=== PATIENT | female | born 1975 | race Caucasian/White ===

== ENCOUNTER 2023-06-13 07:59 | Outpatient (CLI) | payer OTHER, SELFPAY ==
--- NOTE | 2023-06-13 08:15 | ECG_ITS ---
Measurements Intervals [place] Rate: 58 P: 35 ME: 149 QRS: 3 QRSD: 86 T: 37 QT: 398 QTc: 393 Interpretive Statements SINUS BRADYCARDIA BASELINE ARTIFACT- I, II, AVR, AVL, AVF BORDERLINE ECG NO PREVIOUS ECG AVAILABLE FOR COMPARISON Electronically Signed On 06-13-2023 8:32:19 LICENSED MENTAL HE[employer] PROFESSIONAL by Warren Patiño D.O.
== END 2023-06-13 08:00 | disposition home or self-care (01) ==
LOC: ANHSURGERY 08:06
PROVIDERS: PCP Family Medicine; Visit Provider Surgery Plastic and Reconstructive Surgery
DX: E78.00 Pure hypercholesterolemia, unspecified (principal); Z01.818 Encounter for other preprocedural examination; R94.31 Abnormal electrocardiogram [ECG] [EKG]
CPT/HCPCS: 93005

== ENCOUNTER 2023-06-16 02:01 | Day surgery (SDC) | payer OTHER, SELFPAY ==
--- NOTE | 2023-06-06 10:16 | PC.NURSE ---
Report to the Outpatient Waiting Room, entrance under the green pavilion located off [facility], at time 0600 on date 06/16/23. Planned Procedure Time: 0730. Time changes happen often and if your time is changed the preop area will call you the afternoon before. - You and your visitor will be asked to self-screen and do not enter if you have any COVID symptoms. - A mask is optional within the hospital at this time. Patients may have clear liquids (water, carbonated beverages, clear teas, apple juice) until 3 hours prior to surgery with a maximum of 20 ounces. 0430 - No food from midnight until time of surgery - Infants may have breast milk until 4 hours before surgery, formula 6 hours prior to surgery. - Children will be allowed to drink immediately following surgery. If applicable, please bring a bottle or sippy cup to assist with drinking. Juice, water, soda, and popsicles are readily available. For infants on formula, please bring formula the day of surgery. Pacifiers are allowed. Take the following medications with a SIP of water the morning of surgery: None DO NOT STOP ANY OF YOUR OTHER PRESCRIPTION MEDICATIONS PRIOR TO SURGERY ?EXCEPT THE FOLLOWING Medications to discontinue per physician Multivitamins, Crestor, Progesterone Date to take last dose 06/13/23- Multivitamins, 06/15/23- Crestor, Progesterone Please no make-up, nail portuguese, hairspray, perfume, deodorant, or body powder the day of surgery. No jewelry (including any body piercings) or valuables the day of surgery, leave them at home. Please take a shower or bath the night before, or the morning of, surgery with an antibacterial soap. Wear comfortable, loose fitting clothing. Children are encouraged to wear pajamas. - Jewelry must be removed prior to entering the operating room. Rings and piercings that are not removed may be cut off. - The hospital will not accept responsibility for valuables. - Please leave all valuables, including medications, at home the day of surgery. If you are going home after surgery, a licensed medical driver must drive you home. - NO public transportation without another adult if you receive anesthesia. - We recommend that an adult stay with you for 24 hours following discharge. - We also recommend that you do not drive, make important decision, drink alcoholic beverages, or take any drugs that were not prescribed by your health care provider for at least 24 hours after your discharge time. For Pediatric surgeries, we recommend two adults accompany the child home. Follow any additional instructions given to you from your surgeon. If you or anyone in your household have experienced Covid symptoms in the past week, please notify your surgeon or the nurse liaison at the phone number below for possible testing. Telephone instructions given to Patient- Karrie Rea and asked if any additional questions and then verbalized understanding. Patient advised to call surgeon office or pre surgery nurse liaison [phone] if any additional questions.
[2023-06-06 10:24] VITALS: BMI 28.1
[2023-06-16] VITALS (12 sets, daily range): BP systolic 90–128; BP diastolic 56–88; PULSE 52–109; RESP 12–18; TEMP 36.6–37.1; O2SAT 93–100
[2023-06-16] MEDS: LACTATED RINGERS 1,000 ML 30 ML IV CONT ×2 (06:40→10:51)
[2023-06-16 06:58] LABS: Urine Cotinine NEGATIVE
--- NOTE | 2023-06-16 06:59 | WPDHPUPDATE1 ---
History and Physical Update Update Date/Time: 06/16/23 06:59 History and Physical has been reviewed, including an updated exam of the patient. There are NO changes in the patient's condition. Risks, benefits, and alternatives have been discussed and questions answered. Patient agrees to proceed with procedure.
--- NOTE | 2023-06-16 07:08 | WPDANESEPPF ---
Anes - Initial Pre Proc Eval Procedure: Operation Date: 06/16/23 07:30 Proposed Procedures p Bilateral Breast Mastopexy with Galaflex - Devonte Onofre MD Date/Time: 06/16/23 07:08 Surgeon: Devonte Onofre MD Pre Op Diagnosis: Jd Breast Ptosis Patient Data Age: 47 Gender: F Height: 1.73 m Weight: 83.9 kg Allergies Allergy/AdvReac Type Severity Reaction Status Date / Time Penicillins Allergy Rash Verified 06/06/23 10:03 Home Medications Medication Instructions Recorded Confirmed Type Adult Multivitamin Gummies 2 gummy PO DAILY 06/06/23 06/06/23 History progesterone micronized 200 mg 200 mg PO HS 06/06/23 06/06/23 History capsule rosuvastatin 40 mg tablet 40 mg PO DAILY 06/06/23 06/06/23 History Laboratory Tests 06/16/23 06:34 Cotinine Negative Patient hx anesthesia problems: none Family hx anesthesia problems: none Results Review: All pre-operative results and documents have been reviewed as part of the pre-operative evaluation. [facility], [facility] Social History Social History Smoking status: Never smoker Alcohol use details: 4 times per year Spiritual care concerns: No Anes - Eval Final PreProcedure Day of Procedure 06/16/23 07:08 Patient weight: overweight Heart: regular rate and rhythm Lungs: clear to auscultation Airway: Mallampati scale class III Neurological: alert and oriented Last oral intake: >/= 8 hours ASA classification: III Emergent: no Anesthetic plan: proceed Anesthesia type and monitoring: general LMA and standard monitoring Results Review: All pre-operative results and documents have been reviewed as part of the pre-operative evaluation. Informed Consent: The patient's anesthetic plan and its attendant risks and benefits were discussed with the patient/family/POA. Questions were solicited and answers provided to the satisfaction of the patient/family/POA.
[2023-06-16] MEDS: ceFAZolin 2 GM/D5W 50 ML 2 GM/50 ML BAG IVPB (07:27)
[2023-06-16] MEDS: TRANEXAMIC ACID 1,000MG/ISO100 1,000 MG/100 ML BAG 200 MG IVPB (07:37)
[2023-06-16] MEDS: NACL 0.9% IRRIG POUR BOTTLE 900 ML, GENTAMICIN SULFATE INJ 160 MG, CLINDAMYCIN PHOS INJ... IRRIGATION (07:50)
[2023-06-16] MEDS: LACTATED RINGERS IRRIG 1,000 ML, LIDOCAINE HCL 1% LOCAL INJ 50 ML, EPINEPHrine HCL INJ ... INFILTRATE (10:05)
--- NOTE | 2023-06-16 10:48 | P.OP_ITS ---
Procedure Note - Detailed Date of Procedure 06/16/23 Pre-op Diagnosis Jd Breast Ptosis Post-op Diagnosis Same Procedure Performed Bilateral mastopexy with Galaflex Surgeon Devonte Onofre MD Anesthesia General Findings Inverted T Superior medial pedicle Autoaugmentation Tissue removed: Right - 159.6 grams lateral to breast Left - 262 grams lateral to breast Lipoaspirate 125cc Galaflex REF# [id number]# [id number] Description of Procedure She is here today for bilateral breast mastopexy. Previously and again today the risks, benefits, alternatives were discussed in extensive detail. I wanted her to be very realistic about the risks involved as well as expectations. She has had previous biopsy of the skin of her breast and has elected to send this tissue to pathology (she understands this is in addition to our fee). We discussed aftercare and what to monitor for. Made sure answered all of her questions to her satisfaction today and consent was obtained. Marked in the preoperative holding area with their verification. The patient was taken to the operating room placed supine on the operating table. Anesthesia was provided by anesthesiology. A surgical time-out was taken. She was prepped and draped in a standard sterile fashion. Eleven blade was utilized to make a stab incision and infiltrated with low volume tumescent solution. The breast was tailor tacked into place. I tailor tacked the breast into position. Placed her in a sitting position. Verified the nipple-areolar location based on preoperative planning as well as intraoperative observations and measurements in full agreement. She was placed supine. I de-epithelialized the pedicle. I then de-epithelialized the inferior breast tissue to create an autoaugmentation flap based on intercostal assistant superintendent. I elevated medial and lateral tissue flaps as well for planned closure. The autoaugmentation flap was sutured to the chest wall with 2-0 PDS. Blaze had been soaking on the back table in a Betadine solution. This was trimmed and sutured into place with 2-0 Vicryl. She was tacked into place and placed in a sitting position to verify symmetry. Laterally she had asymmetry and suction lipectomy was completed with a 4mm basket cannula based on S.A.F.E. technique to maximize results. 2-0 PDS was used to tack the breast to deep tissue. I closed along the IMF with 2-0 Stratafix. Along the vertical with 2-0 PDS. I closed around the areola with 3-0 strata fix. 3-0 Monocryl along the vertical. 3-0 Stratafix along the IMF. I finally closed everything with running subcuticular 4-0 Monocryl and tissue glue. Fluffs and surgical bra were placed. Estimated Blood Loss 125 Drains No Packing No Pathology Yes (Breast skin) Complications No immediate complications Condition Stable Disposition PACU
[2023-06-16] MEDS: ONDANSETRON INJ 4 MG/2 ML VIAL IV PUSH (11:31)
[2023-06-16] MEDS: HYDROmorphone HCL INJ (*CRX) 1 MG/ML SYR 0.5 MG IV PUSH ×2 (11:34→12:15)
[2023-06-16] MEDS: diphenhydrAMINE HCl INJ 50 MG/ML VIAL 25 MG IV PUSH (13:36)
[2023-06-16] MEDS: SCOPOLAMINE 1.5 MG PATCH TRANSDERM (13:36)
[2023-06-16] MEDS: oxyCODONE HCL (*CRX) 5 MG TAB IR PO (14:02)
== END 2023-06-16 14:30 | disposition home or self-care (01) ==
PROVIDERS: PCP Family Medicine; Visit Provider Surgery Plastic and Reconstructive Surgery
PROC: (CPT 19316; principal; 2023-06-16 07:30)
DX: Z41.1 Encounter for cosmetic surgery (principal); N64.81 Ptosis of breast
CPT/HCPCS: 19316; 15777 ×2; 80307; 88305; A9270; J0171; J0690; J1170; J1200; J1580; J2250; J2270; J2405; J2704; J7120

== ENCOUNTER 2024-11-27 12:40 | Outpatient (CLI) | payer OTHER, SELFPAY ==
--- OUTSIDE RECORDS SUMMARY | 2024-11-27 12:48 | XMS_ITS | Continuity of Care Document ---
Author Name [facility] Organization [facility] Care Team Providers Care Manager Video Name Role Phone [facility] Unavailable Unavailable Problems Combined list of problems from Department of Defense and Veterans Affairs facilities. It does not include entries that were removed or entered in error. Problem Status Onset Date Problem Type Date of Resolution Comments Source Nodules - Subcutaneous Active Condition Informed consen t obtained. Area prepped and draped. Infiltrated with 1% lidocaine. Incision made over area, and nodule excised. Wound closed with 5-0 proline. DoD Test Negative Inactive Condition DoD Aftercare Following Surgery Of Musculoskeletal System Inactive Condition DoD KNEE SPRAIN Active Condition With mos t likely acl tear based on exam and possible posterior horn tear of medial meniscus.Pt has ortho appointment at 1000 today. DoD VULVOVAGINITIS BIANKA ALBICANS Active Condition DoD joint pain, localized in the knee Active Condition DoD Other Physical Therapy Active Condition DoD INTERNAL DERANGEMENT OF KNEE MEDIAL MENISCUS Active Condition DoD visit for: issue repeat prescription Active Condition DoD LUMBAGO Active Condition DoD Overweight Active Condition DoD HYPERLIPIDEMIA Active Condition Total cholesterol still above idea.Discussed further options with pt and she wants to wait and discuss with PCM she finds after moving to [facility]. [facility] HYPOMENORRHEA Active Condition DoD visit for: administrative purpose Active Condition DoD Test Inactive Condition DoD BACTERIAL VAGINOSIS Inactive Condition Strong fishy odor - will treat for BV - wet prep taken - sent to lab.Pt thinks she may be - will treat with vaginal gel - Cleocin.HCG - neg DoD BURSITIS Active Condition Ibuprofen 800 mg TID. Heat to shoulder. Limited lifting . ROM exeercises. Follow up for worsening DoD URINARY TRACT INFECTION Inactive Condition increase fluids DoD MYALGIA AND MYOSITIS Active Condition DoD BACK STRAIN THORACIC Active Condition Stretching exercises. Heat . Flexeril TID as needed. Return for worsening or non resolution. DoD SUNBURN Inactive Condition DoD CERVICALGIA Active Condition DoD MIGRAINE HEADACHE Active Condition Co ntinue Ibuprofen as directed; DoD NECK STRAIN Inactive Condition DoD UNSPECIFIED MUSCLE STRAIN Inactive Condition trapezius and paraspinal muscles, hold of on exercises for 1 week alternate ice with heat, RTC for f/u if not improving DoD Patient Education - Dietary Active Condition DoD visit for: issue repeat prescription for medication Inactive Condition Last annual pap--Mar 22, result normal DoD CYSTITIS ACUTE Inactive Condition Resol vedContinue oral force hydratition DoD lower back pain Active Condition DoD skin: a rash [as Sx] Inactive Condition DoD ASTIGMATISM - REGULAR Active Condition DoD REFRACTIVE ERROR - MYOPIA Active Condition DoD NORMAL ROUTINE OPHTHALMOLOGICAL EXAM Inactive Condition DoD LUNG MASS Active Condition possibilit y of mass noted on previous X-ray for pneumonia, would like CT scan to assure nature and presence of mass DoD UPPER RESPIRATORY INFECTION ACUTE Inactive Condition CXR: shows L UL pneumonia according to USAFA, Prescribed antibiotic treatment for atypical pneumonia DoD Medications Combined list of outpatient medications from Department of Defense and Veterans Affairs facilities.Medications provided include 1) outpatient medications from the last 15 months, and 2) patient-reported medications. Medication Details Route Status Patient Instructions Prescription Expires Prescription Number Last Dispense Date Ordering Provider Order Date Order Qty Source CHLORTHALID ONE (chlorthali done), 25 MG, TABLET, ORAL, AMNEAL PHARMACE, 90 ea. BOTTLE Cancele d [id number] : 2023 0 Pharmac y Data Transac tion Service Facilit y METHYLPREDN ISOLONE (methylpred nisolone), 4 MG, TAB DS PK, ORAL, ZYDUS PHARMACEU, 21 ea. DOSE-PACK Active [id number] 2023 21 Pharmac y Data Transac tion Service Facilit y ONDANSETRON HCL (ONDANSETRO N HCL), 4MG, TABLET, ORAL, GLENMARK PHARMA, 30 ea. BOTTLE Active [id number] 2023 12 Pharmac y Data Transac tion Service Facilit y Allergies, Adverse Reactions, Alerts Combined list of allergies from Department of Defense and Veterans Affairs facilities. It does not include entries that were removed or entered in error. Substance Category Reaction Severity Reaction type Status Date Reported Comments Source OTHER Drug allergy (disorder) Unknown active 06/01/2007 [facility] Penicillins Drug allergy (disorder) Unknown active 08/21/2006 47 [facility] Immunizations Combined list of available immunizations from the Department of Defense and Veterans Affairs facilities. Immunization Series Date Given Administered By Site Reaction Lot Number CVX Code Drug Cook Ship Status Comments Source influenza, injectable, quadrivalent, preservative free 2019 ROB, () Not Given influenza , injectabl e, quadrival ent, preservat hernan free [facility] Influenza, seasonal, injectable, preservative free 2014 CYNTHIA GRIFFITH () Not Given Influenza , seasonal, injectabl e, preservat hernan free DoD Encounters Combined list of: 1) Encounters from Department of Veterans Affairs facilities going backup to the last 18 months, not all VA inpatient encounters are included; 2) Encounters from the Department of Defense facilities going backup to 280 months. Location Location Details Encounter Type Encounter Number Reason For Visit Attending Provider ADM Date DC Date Status Disposition Source [facility] OUTPATIENT [id number] cold sx GENIA ROMERO 06/30 Released w/o Limitations [facility](F light Medic[facility]) [facility](Fli [facility]ht Medicine [facility]) OUTPATIENT [id number] GENIA ROMERO 07/20 Released w/o Limitations [facility] light [facility]) [facility](Opt ometry Clinic) OUTPATIENT [id number] scl VI Manuel I 07/25 Released w/o Limitations [facility](O ptometr y Clinic) [facility](Gai [facility]ht Medicine [facility]) OUTPATIENT [id number] rash on rt arm EDVIN MATA 08/21 Released w/o Limitations [facility]) [facility] OUTPATIENT [id number] pelvic pain and hematur ia RAPHAEL GARCIA 11/13 Released w/o Limitations [facility] OR [facility]) OUTPATIENT [id number] follow up RAPHAEL GARCIA 11/21 Released w/o Limitations [facility]) OUTPATIENT [id number] Nutriti on Della g RONNELL Crook 11/23 Released w/o Limitations [facility]) OUTPATIENT [id number] sever back pain YVONNE FLORES 11/25 Released w/o Limitations [facility] OR [facility]) OUTPATIENT [id number] neck discomf ort/hea dache x 1wk ILSA GRIMALDO 01/24 Released w/o Limitations [facility] OR Mannie Ferguson [place]([facility]) OUTPATIENT [id number] neck discomf ort no trauma /injury needs manip PAPITO LUCAS 01/29 Released w/o Limitations [facility]) OUTPATIENT [id number] severe neck pain,ok per PAPITO Hummel 02/02 Released w/o Limitations [facility] OR [facility]) OUTPATIENT [id number] NECK ISSUES/ F/U PAPITO LUCAS 02/23 Released w/o Limitations [facility] OR [facility]) OUTPATIENT [id number] UTI sx YVONNE FLORES 02/28 Released w/o Limitations [facility] OR [facility]) OUTPATIENT [id number] left shoulde r and left flank pain LILIBETH XAVIER 04/13 Released w/o Limitations [facility]) [facility]) OUTPATIENT 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 ENID Santiago 05/29 Released w/o Limitations [facility](F P [facility] II) th [facility]) TELE CONSULT [id number] please call with results of pregnan cy test done at 0830 PREMA LINDO 05/29 [facility] Group(F P Rok I) th [facility]) TELE CONSULT [id number] Pregnan cy Results SAM NAIK 06/06 [facility] Group(F amily Practic e Contrac t) [facility]) OUTPATIENT [id number] Irregul ar Menstru al Cycle BILL SELENA L 06/13 Released w/o Limitations [facility]( yn [facility]) [facility]) TELE CONSULT [id number] test results thyroid blood count jun 14 SELENA KHAN 06/14 [facility](F P [facility] II) [facility]) TELE CONSULT [id number] results BILL SELENA L 06/15 [facility] Group([facility]) [facility]) OUTPATIENT [id number] discuss results SELENA KHAN 06/25 Released w/o Limitations [facility]) [facility]) OUTPATIENT [id number] HYPERLI PIDEMIA ANNA MENENDEZ 06/26 Released w/o Limitations [facility](N utritio nal Medicin e) [facility]) OUTPATIENT [id number] f/u cholest prob CABRERA KUMAR 06/26 Released w/o Limitations [facility](F P Rok II) [facility]) TELE CONSULT [id number] 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 07/06 Released w/o Limitations [facility](P hysical Therapy ) [facility](Phy sical Therapy) OUTPATIENT [id number] DIANE TUTTLE P. 07/16 Released w/o Limitations [facility](P hysical Therapy ) [facility]) TELE CONSULT [id number] needs med refill on ortho tricycl en. pt was suppose d to start yesterd frederic LINDO PREMA Dwight 07/23 Medical Group(F P Rok II) [facility](FP Rok I) TELE CONSULT [id number] states is suppose d to have blood cholest junaid labs done every 6 wks...n o order in PREMA LINDO Dwight 07/31 [facility] Group(F P Rok I) [facility](Phy sical Therapy) OUTPATIENT [id number] DIANE TUTTLE 08/09 Released w/o Limitations [facility](P hysical Therapy ) [facility]) TELE CONSULT [id number] cholest test liver functio n aug 01 GUICHO FREEMANSYED Quintanilla 08/09 Medical Group(F P Rok II) [facility]) TELE CONSULT [id number] returen ed your phone call GUICHO PREMA Dwight 08/13 [facility] Group(F P Rok II) [facility](Phy sical Therapy) OUTPATIENT [id number] DIANE TUTTLE 08/24 Released w/o Limitations [facility](P hysical Therapy ) [facility](Phy sical Therapy) OUTPATIENT [id number] PRESTON RIVER 08/30 Released w/o Limitations [facility](P hysical Therapy ) [facility](Phy sical Therapy) OUTPATIENT [id number] PRESTON RIVER 09/04 Released w/o Limitations [facility](P hysical Therapy ) [facility](Phy sical Therapy) OUTPATIENT [id number] KAIT MONTGOMERY 09/06 Released w/o Limitations [facility](P hysical Therapy ) [facility]ok II) TELE CONSULT [id number] refill ..reque sting call back about mri on knee GUICHO FREEMANSYED Quintanilla 09/06 [facility](F P Rok II) [facility]) OUTPATIENT [id number] pt st itch on outside , no other symptom s SELENA KHAN 09/07 Released w/o Limitations [facility](G yn Clinic) [facility](Phy sical Therapy) OUTPATIENT [id number] FATOU HERRERA 09/11 Released w/o Limitations [facility](P hysical Therapy ) [facility]) TELE CONSULT [id number] mri result GUICHO PREMA D 09/12 [facility] Group(F P Rok II) [facility](Phy sical Therapy) OUTPATIENT [id number] FATOU HERRERA 09/13 Released w/o Limitations [facility](P hysical Therapy ) [facility](FP Rok II) OUTPATIENT [id number] state knee f/u CABRERA KUMAR Released w/o Limitations [facility](F P Rok II) [facility](FP Rok II) TELE CONSULT [id number] wants to talk to nurse about paperwo rk for orthope dist about right knee PREMA LINDO D 09/25 Medical Group(F P Rok II) [facility]) OUTPATIENT [id number] ANNA MENENDEZ 09/27 Released w/o Limitations [facility](N utritio nal Medicin e) [facility] Group(FP Rok II) TELE CONSULT [id number] pt needs refills on control and zocor 80mg GUICHOPREMA D 10/15 Medical Group(F P Rok II) [facility](FP Rok II) OUTPATIENT [id number] follow up chol CABRERA KUMAR 10/15 Released w/o Limitations [facility](F P Rok II) [facility](Phy sical Therapy) OUTPATIENT [id number] BROOKE MEYER 10/22 Released w/o Limitations [facility](P hysical Therapy ) [facility](Phy sical Therapy) OUTPATIENT [id number] YVONNE CORNEJO 10/24 Released w/o Limitations [facility](P hysical Therapy ) [facility](Phy sical Therapy) OUTPATIENT [id number] YVONNE CORNEJO 10/28 Released w/o Limitations [facility](P hysical Therapy ) [facility](Phy sical Therapy) OUTPATIENT [id number] GREGORIO MONTGOMERY 10/30 Released w/o Limitations [facility](P hysical Therapy ) [facility](Phy sical Therapy) OUTPATIENT [id number] KAIT MONTGOMERY 11/04 Released w/o Limitations [facility](P hysical Therapy ) [facility](Phy sical Therapy) OUTPATIENT [id number] YVONNE CORNEJO 11/06 Released w/o Limitations [facility](P hysical Therapy ) [facility](Phy sical Therapy) OUTPATIENT [id number] DIANE TUTTLE 11/07 Released w/o Limitations [facility](P hysical Therapy ) [facility] Group(FP Rok I) TELE CONSULT [id number] naesua, hot cold flashes , tired GUICHO, MAMYE D 11/12 Medical Group(F P Rok I) [facility](Phy sical Therapy) OUTPATIENT [id number] FATOU HERRERA 11/13 Released w/o Limitations [facility](P hysical Therapy ) [facility](FP Rok II) TELE CONSULT [id number] pregnan cy test GUICHO, MAMYE D 11/20 Medical Group(F P Rok II) [employer] ([employer])(Gene ral Surgery) OUTPATIENT [id number] entered the order KARRIE ARAGON 01/14 Released w/o Limitations [employer] ([employer])(Ge neral Surgery ) [employer] ([employer])(Gene ral Surgery) OUTPATIENT [id number] excisio n forearm r mass KARRIE ARAGON 01/28 Released w/o Limitations [employer] ([employer])(Ge neral Surgery ) Procedures Combined list of: 1) Procedures from Department of Veterans Affairs facilities going back up to thelast 18 months, not all VA non-surgical procedures are included; 2) All procedures from the Department of Defense facilities. Procedure Procedure Type Code Date Perfomer Comments Sourc e EXCISION, TUMOR, SOFT TISSUE OF FOREARM AND/OR WRIST AREA, SUBCUTANEOUS; LESS THAN 3 CM 2007 [facility] OPHTHALMOLOGICAL SERVICES: MEDICAL EXAMINATION AND EVALUATION WITH INITIATION OF DIAGNOSTIC AND TREATMENT PROGRAM; COMPREHENSIVE, NEW PATIENT, 1 OR MORE VISITS 2006 [facility] INJECTION(S); SINGLE OR MULTIPLE TRIGGER POINT(S), 1 OR 2 MUSCLE(S) 2006 [facility] OSTEOPATHIC MANIPULATIVE TREATMENT (OMT); 1-2 BODY REGIONS INVOLVED 2006 DoD OSTEOPATHIC MANIPULATIVE TREATMENT (OMT); 1-2 BODY REGIONS INVOLVED 2006 [facility] MEDICAL NUTRITION THERAPY; GROUP (2 OR MORE INDIVIDUAL(S)), EACH 30 MINUTES 2006 DoD THERAPEUTIC PROCEDURE, 1 OR MORE AREAS, EACH 15 MINUTES; THERAPEUTIC EXERCISES TO DEVELOP STRENGTH AND ENDURANCE, RANGE OF MOTION AND FLEXIBILITY 2007 [facility] PHYSICAL THERAPY RE-EVALUATION 2007 DoD APPLICATION OF A MODALITY TO 1 OR MORE AREAS; HOT OR COLD PACKS 2007 DoD APPLICATION OF A MODALITY TO 1 OR MORE AREAS; HOT OR COLD PACKS 2007 DoD APPLICATION OF A MODALITY TO 1 OR MORE AREAS; HOT OR COLD PACKS 2007 DoD APPLICATION OF A MODALITY TO 1 OR MORE AREAS; HOT OR COLD PACKS 2007 DoD APPLICATION OF A MODALITY TO 1 OR MORE AREAS; HOT OR COLD PACKS 2007 DoD THERAPEUTIC PROCEDURE, 1 OR MORE AREAS, EACH 15 MINUTES; THERAPEUTIC EXERCISES TO DEVELOP STRENGTH AND ENDURANCE, RANGE OF MOTION AND FLEXIBILITY 2007 DoD MEDICAL NUTRITION THERAPY; RE-ASSESSMENT AND INTERVENTION, INDIVIDUAL, [id number] WITH THE PATIENT, EACH 15 MINUTES 2007 DoD APPLICATION OF A MODALITY TO 1 OR MORE AREAS; HOT OR COLD PACKS 2007 DoD APPLICATION OF A MODALITY TO 1 OR MORE AREAS; HOT OR COLD PACKS 2007 DoD TISSUE EXAMINATION BY JG SLIDE OF SAMPLES FROM SKIN, HAIR, OR NAILS FOR FUNGI OR ECTOPARASITE OVA OR MITES (EG, SCABIES) 2007 DoD APPLICATION OF A MODALITY TO 1 OR MORE AREAS; HOT OR COLD PACKS 2007 DoD APPLICATION OF A MODALITY TO 1 OR MORE AREAS; HOT OR COLD PACKS 2007 DoD APPLICATION OF A MODALITY TO 1 OR MORE AREAS; HOT OR COLD PACKS 2007 DoD PHYSICAL THERAPY EVALUATION 2007 DoD PHYSICAL THERAPY RE-EVALUATION 2007 DoD PHYSICAL THERAPY RE-EVALUATION 2006 [facility] THERAPEUTIC PROCEDURE, 1 OR MORE AREAS, EACH 15 MINUTES; THERAPEUTIC EXERCISES TO DEVELOP STRENGTH AND ENDURANCE, RANGE OF MOTION AND FLEXIBILITY 2006 [facility] MEDICAL NUTRITION THERAPY; GROUP (2 OR MORE INDIVIDUAL(S)), EACH 30 MINUTES 2006 [facility] 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 Subcutaneous 2007 KARRIE ARAGON [facility] Physical Therapy: ___ Se ion Segments, 15 Minutes Each Physical Therapy: ___ Session Segments, 15 Minutes Each [id number] 2007 FATOU HERRERA ONE ON ONE INSTUCTION OF TWO EXERCISES AND REVIEW OF OLD EXS BY TECH X10 MIN [facility] Physical Medicine Physical Therapy Re-Evaluation Physical Medicine Physical Therapy Re-Evaluation 92043 2007 DIANE TUTTLE [facility] Modalities Cryotherapy Cold Packs Modalities Cryotherapy Cold Packs 23114 2007 YVONNE CORNEJO ICE X10MIN TO RIGHT KNEE AFTER EX'S PER FLOWSHEET DATED 11/07/07 [facility] Physical Therapy: ___ Se ion Segments, 15 Minutes Each Physical Therapy: ___ Session Segments, 15 Minutes Each [id number] 2007 YVONNE CORNEJO ONE ON ONE SUPERVISION OF KNEE EX'S BY EMS MANAGER x20MIN PER FLOWSHEET DATED 11/07/07 [facility] Modalities Cryotherapy Cold Packs Modalities Cryotherapy Cold Packs 28784 2007 KAIT MONTGOMERY APPLIED TO RIGHT KNEE AFTER EXERCISES BY PT TECH X 10 MIN. [facility] Physical Therapy: ___ Se ion Segments, 15 Minutes Each Physical Therapy: ___ Session Segments, 15 Minutes Each 10110 2007 KAIT MONTGOMERY 1 ON 1 SUPERVISION OF EXERCISES PER FLOWSHEET DATED OCT 22 BY PT TECH X 15 MIN [facility] Modalities Cryotherapy Cold Packs Modalities Cryotherapy Cold Packs 08752 2007 GREGORIO MONTGOMERY ICE X10MIN TO RIGHT KNEE AFTER EX'S PER FLOW CHART [id number] [facility] Physical Therapy: ___ Se ion Segments, 15 Minutes Each Physical Therapy: ___ Session Segments, 15 Minutes Each [id number] 2007 GREGORIO MONTGOMERY ONE ON ONE SUPERVISION OF KNEE EX'S PER FLOW CHART [id number] BY TECH X20MIN [facility] Modalities Cryotherapy Cold Packs Modalities Cryotherapy Cold Packs 33753 2007 YVONNE CORNEJO ICE X10MIN TO RIGHT KNEE AFTER EX'S PER FLOWSHEET DATED 10/29/07 [facility] Physical Therapy: ___ Se ion Segments, 15 Minutes Each Physical Therapy: ___ Session Segments, 15 Minutes Each [id number] 2007 YVONNE CORNEJO ONE ON ONE SUPERVISION OF KNEE EX'S BY EMS MANAGER x22MIN PER FLOWSHEET DATED 09/28/07 [facility] Modalities Cryotherapy Cold Packs Modalities Cryotherapy Cold Packs 58681 2007 YVONNE CORNEJO ICE X10MIN TO RIGHT KNEE AFTER EX'S PER FLOWSHEET DATED 10/25/07 [facility] Physical Therapy: ___ Se ion Segments, 15 Minutes Each Physical Therapy: ___ Session Segments, 15 Minutes Each [id number] 2007 YVONNE CORNEJO ON ONE SUPERVISION OF KNEE EX'S BY EMS MANAGER x20MIN PER FLOWSHEET DATED 10/25/07 DoD PT A e ment Kinetic Training PT Assessment Kinetic Training 06476 2007 BROOKE MEYER x 10 min with pt (ther ex for QS, SLR in Flex/Ext, HS/gastroc stretches) [facility] Physical Medicine Physical Therapy Evaluation Physical Medicine Physical Therapy Evaluation 68256 2007 BROOKE MEYER DoD Medical Nutrition Therapy Re-a e ment, Intervention Medical Nutrition Therapy Re-assessment, Intervention 40493 2007 ANNA MENENDEZ DoD Modalities Heat Hot Packs Modalities Heat Hot Packs 40747 2007 FATOU HERRERA X10 MIN TO RIGHT KNEE PRIOR TO [place] DoD Modalities Ultrasound Modalities Ultrasound 40980 2007 FATOU HERRERA AUTOSOUND TO RIGHT MEDIAL KNEE @ 1.5W/CM2 X10 MIN IN SUPINE POSITION DoD Modalities Heat Hot Packs Modalities Heat Hot Packs 89996 2007 FATOU HERRERA X10 MIN TO RIGHT KNEE PRIOR TO [place] DoD Modalities Ultrasound Modalities Ultrasound 74466 2007 FATOU HERRERA ONE ON ONE US TO RIGHT MEDIAL KNEE @ 1.5W/CM2 X8 MIN IN SUPINE POSITION DoD Vaginal JG Prep Vaginal JG Prep 82043 2007 SELENA KHAN [facility] Vaginal Wet [place] Vaginal Wet [place] 62315 2007 SELENA KHAN DoD Modalities Heat Hot Packs Modalities Heat Hot Packs 73981 2007 KAIT MONTGOMERY APPLIED TO RIGHT KNEE X 10 MINS PRIOR TO ULTRASOUND BY TECH. DoD Modalities Ultrasound Modalities Ultrasound 71772 2007 KAIT MONTGOMERY ULTRASOUND 1.5 W/CM2 TO RIGHT MEDIAL KNEE, 1 Mhz, 5 CM SOUNDHEAD, X 8 MIN BY TECH. DoD Modalities Ultrasound Modalities Ultrasound 01996 2007 BRANDI RIVER AUTOSOUND @ 1.5 W/CM^2 TO RIGHT MEDIAL KNEE PULSED AT 50% BY TECH x 8 MIN DoD Modalities Heat Hot Packs Modalities Heat Hot Packs 40617 2007 BRANDI RIVER MH X 10 MIN TO RIGHT KNEE PRIOR TO TX DoD Modalities Heat Hot Packs Modalities Heat Hot Packs 30472 2007 BRANDI RIVER MH X 10 MIN TO RIGHT KNEE PRIOR TO TX DoD Modalities Ultrasound Modalities Ultrasound 39021 2007 BR[place]I RIVER ONE ON ONE US @ 1.5 W/CM^2 TO RIGHT MEDIAL KNEE PULSED @ 50% BY TECH x 8 MIN [facility] Physical Medicine Physical Therapy Evaluation Physical Medicine Physical Therapy Evaluation 10125 2007 DIANE TUTTLE Physical Medicine Physical Therapy Re-Evaluation Physical Medicine Physical Therapy Re-Evaluation 92602 2007 DIANE TUTTLE Physical Medicine Physical Therapy Re-Evaluation Physical Medicine Physical Therapy Re-Evaluation 89182 2006 DIANE TUTTLE Physical Therapy: ___ Se ion Segments, 15 Minutes Each Physical Therapy: ___ Session Segments, 15 Minutes Each 45428 2006 DIANE TUTTLE Physical Medicine Physical Therapy Evaluation Physical Medicine Physical Therapy Evaluation 39487 2006 DIANE TUTTLE Medical Nutrition Therapy Group (2 or More Individual(s)) Medical Nutrition Therapy Group (2 or More Individual(s)) 93281 2006 ANNA MENENDEZ DoD Injection Of Trigger Point(s) One Or Two Muscle Group(s) Injection Of Trigger Point(s) One Or Two Muscle Group(s) 72312 2006 PAPITO LUCAS DoD Injection, triamcinolone acetonide, not otherwise specified, 10 mg 2006 CICORA, PAPITO A Triamcinolone 40mg injected as described. DoD Osteopathic Manip Treatment (OMT) 1-2 Body Regions Involved Osteopathic Manip Treatment (OMT) 1-2 Body Regions Involved 56459 2006 CICORA, PAPITO A HVLA to cervical lesions and indirect method to thorax. Neutralized. Decreased pain and spasm w/ improved ROM. DoD Osteopathic Manip Treatment (OMT) 1-2 Body Regions Involved Osteopathic Manip Treatment (OMT) 1-2 Body Regions Involved 32971 2006 CICORA, PAPITO A HVLA to cervical lesions. Neutralized. Decreased pain and spasm w/ improved ROM. DoD Medical Nutrition Therapy Group (2 or More Individual(s)) Medical Nutrition Therapy Group (2 or More Individual(s)) 24950 2006 RONNELL GRIFFITH [facility] Prescription & Fitting Bilateral Corneal Lenses (Not Aphakia Prescription & Fitting Bilateral Corneal Lenses (Not Aphakia 10749 2006 VI HANCOCK Determination Of Refractive State Determination Of Refractive State 20747 2006 VI HANCOCK Ophthalmological New Patient Start Comprehensive Care Ophthalmological New Patient Start Comprehensive Care [id number] 2006 [place] Social History Combined list of available smoking, tobacco, and other social history from [facility] and [facility] facilities. Social History Type Response Date Comment Sour e This section is an empty social history section. DoD
--- OUTSIDE RECORDS SUMMARY | 2024-11-27 12:48 | XMS_ITS ---
Author Organization 1 OF Lalito ferreira [facility] Address [address] [address] Care Team Providers Care Drapery Examiner Name Role Phone UNKNOWN, UNKNOWN Primary Care Provider Unavailab Sarah Parker Unavailable [phone] Allergies Allergen (clinical drug ingredient) Drug/Non Drug Allergy documented on EMR Reaction Allergy Type Onset Date Status Penicillin (uncoded) Unknown Allergy Active Surgical glue (uncoded) Unknown Allergy Active REASON FOR VISIT nail fungus Medications Medication SIG (Take, Route, Fr equency, Duration) Notes Start Date End Date Status Crestor Active Progesterone Active Ciclopirox 8 % 1 application to aff ected toenails daily. Every weekend, remove medicine with nail vincentian remover. Topical Once a day for 120 days 08/17/2023 Active Ketoconazole 2 % 1 application to exp osed toenail bed Topical Once a day for 90 days 08/17/2023 Active Cephalexin 500 MG Oral for 7 Days Not-Taking Vital Signs Height 68 in 11/16/2023 Weight 188 lbs 11/16/2023 BMI 28.58 kg/m2 11/16/2023 Encounters Encounter Location Date Provider Diagnosis 1 OF Lalito Silva [facility] [address] [address] 11/16/2023 Sarah Triana Dermatophytosis of n ail B35.1 Assessments Encounter Date Diagnosis (ICD Code) Assessment Notes Treatment Notes Treatment Clinical Notes Section Notes 11/16/2023 Dermatophytosis of nail (ICD-10 - B35.1) Evaluation today included a review of medical history, review of systems, discussion of exam findings, and review of diagnoses and treatment options.The patient states that her nails are improving. She was advised to continue using both topical medications, ideally until the toenail has complete clearance. I again discussed the possibility of having some deformity or change to the nail due to potential microtrauma. She is no longer having any pain with her ingrown toenail. She has refills on her nail fungus medication. She will call as needed. Plan Of Treatment Treatment Notes Assessment Notes Dermatophytosis of nail Evaluation today included a review of medical history, review of systems, discussion of exam findings, and review of diagnoses and treatment options.The patient states that her nails are improving. She was advised to continue using both topical medications, ideally until the toenail has complete clearance. I again discussed the possibility of having some deformity or change to the nail due to potential microtrauma. She is no longer having any pain with her ingrown toenail. She has refills on her nail fungus medication. She will call as needed. Next Appt Details Follow Up: prn, Reason: Progress Notes * Karrie READOB: 7 (48 yo F)Acc No.[id number]:11/16/2023 Progress Notes Patient: Karrie LIN Provider: Jay Triana DPM :1975 A ge:48 Y S ex:Female Date:11/16/2023 Address:[address] [place] [address] Pcp:UNKNOWN UNKNOWN Subjective: * Chief Complaints: * N ail fungus * HPI: M Patti assisting with visit:: HPI/Rooming: Marissa. Drew reason for visit:: Follow-up: [age] y /o female RTO for f/u of nail fungus. At the last visit, she was given prescriptions for ciclopirox and ketoconazole cream. Today, she reports she has been using both topical medications. She states that the nails are improving. She does have nail vincentian on today. She states that the ingrown toenail that was treated has no pain.. * ROS: * MULTI-SYSTEM REVIEW:: Nausea, fever or chillls d enies. A ny change in medications since last visit? d enies. A ny changes in medical history/hospitalizations? d enies. * Medical History: * Surgical History: B /L ingrown toenail removals 2013 * Hospitalization/Major Diagno stic Procedure: * Medications: T akingProgesterone Crestor Ketoconazole 2 % Cream 1 application to exposed toenail bed Topical Once a day Ciclopirox 8 % Solution 1 application to affected toenails daily. Every weekend, remove medicine with nail vincentian remover. Topical Once a day Taking Progesterone Taking Crestor Taking Ketoconazole 2 % Cream 1 application to exposed toenail bed Topical Once a day Taking Ciclopirox 8 % Solution 1 application to affected toenails daily. Every weekend, remove medicine with nail vincentian remover. Topical Once a day Not-Taking/PRNCephalexin 500 MG Capsule Oral Medication List reviewed and reconciled with the patientNot-Taking/PRN Cephalexin 500 MG Capsule Oral Medication List reviewed and reconciled with the patient * Allergies: P enicillinSurgical glueno[Allergies Verified] Objective: * Vitals: W t:188lbs, Wt-k.28 kg, Ht: 68 in, BMI:28.58Index. * Examination: G eneral Examination: Constitutional / Appearance: N o acute distress , Well nourished, Appropriate personal hygiene. Mental status: C ooperative, Oriented to person, place and time, Mood and affect: normal, Judgement and intellect: normal with appropriate response to questions. Shoes today: S andals. Exam unchanged from prior visit: w ith no significant changes in appearance or condition of feet. Unable to adequately assess toenail appearance due to nail vincentian present. No pain with palpation of the nails.. Assessment: * Assessment: 1. D ermatophytosis of nail - B35.1 (Primary) Plan: * Treatment: * Procedure Codes: * Follow Up: p rn * Images: * Sign off status: Completed true * Provider: Jay Triana DPM Date: 11/16/2023 Generated for Raghu Pope/Suzi on: 11/27/2024 12:47 PM CDT History and Physical Notes * HPI (History of Present Illness) Category Sub-Category Detail Notes Category Not es Primary reason for visit: Follow-up: 48 y/o female RTO for f/u of nail fungus. At the last visit, she was given prescriptions for ciclopirox and ketoconazole cream. Today, she reports she has been using both topical medications. She states that the nails are improving. She does have nail vincentian on today. She states that the ingrown toenail that was treated has no pain. LAURENCE assisting with visit: HPI/Rooming: Vickie Examination Category Sub-Category Detail Notes Category Not es General Examination Mental status: Cooperative, Oriented to person, place and time, Mood and affect: normal, Judgement and intellect: normal with appropriate response to questions Shoes today: Sandals Exam unchanged from prior visit: with no significant changes in appearance or condition of feet. Unable to adequately assess toenail appearance due to nail vincentian present. No pain with palpation of the nails. Constitutional / Appearance: No acute di stress , Well nourished, Appropriate personal hygiene
--- OUTSIDE RECORDS SUMMARY | 2024-11-27 12:48 | XMS_ITS | Encounter Summary ---
Author Organization [facility] Address [address] [place] [address] Care Team Providers Care Restaurant Bartender Name Role Phone Ceci Max MD Primary Care Provi sneha Encounter Details Date Type Department Care Team (Late st Contact Info) Description 11/25/2024 Results Follow-Up [facility] Family Medicine [address] [phone] Debbie Patel PA [address] [id number] Social History Tobacco Use Types Packs/Day Years Used Date Smoking Tobacco: Never Smokeless Tobacco: Never [facility] Utilities Answer Date Recorded In the past 12 months has [employer], gas, oil, or water company threatened to shut off services in your home? No 05/18/2023 Social Connection and Isolat ion Panel [NHANES] Answer Date Recorded In a typical week, how many times do you talk on the phone with family, friends, or neighbors? More than three times a week 05/18/2023 How often do you get togethe r with friends or relatives? Three times a week 05/18/2023 How often do you attend chur ch or mormonism services? More than 4 times per year 05/18/2023 Do you belong to any clubs o r organizations such as faith groups, unions, fraternal or athletic groups, or school groups? No 05/18/2023 How often do you attend meet ings of the clubs or organizations you belong to? Never 05/18/2023 Are you , , di vorced, , never , or living with a partner? 05/18/2023 AUDIT-C Answer Date Recorded Q1: How often do you have a drink containing alc ohol? Monthly or less 11/19/2024 Q2: How many drinks containi ng alcohol do you have on a typical day when you are drinking? 1 or 2 11/19/2024 Q3: How often do you have si x or more drinks on one occasion? Never 11/19/2024 Overall Financial Resource Strain (CARDIA) Answe r Date Recorded How hard is it for you to pa y for the very basics like food, housing, medical care, and heating? Not hard at all 05/18/2023 PHQ-2 Answer Date Recorded PHQ-2 Total Score (If total score is 3 or more points, staff should administer the PHQ-9) 2 11/19/2024 Hunger Vital Sign Answer Date Recorded Within the past 12 months, y ou worried that your food would run out before you got the money to buy more. Never true 05/18/20 23 Within the past 12 months, t he food you bought just didn't last and you didn't have money to get more. Never true 05/18/2023 PRAPARE - Transportation Answer Date Re corded In the past 12 months, has l ack of transportation kept you from medical appointments or from getting medications? No 08/2022 In the past 12 months, has l ack of transportation kept you from meetings, work, or from getting things needed for daily living? No 05/18/2023 Housing Stability Vital Sign Answer Andrew e Recorded In the last 12 months, was t here a time when you were not able to pay the mortgage or rent on time? No 05/18/2023 In the last 12 months, how many places have you lived? 1 05/18/2023 In the last 12 months, was t here a time when you did not have a steady place to sleep or slept in a skilled nursing (including now)? No 05/18/2023 PHQ-9 Answer Date Recorded PHQ-9 Total Score 11 11/19/2024 Personal Safety Answer Date Recorded Have you ever been in or are you currently in a harmful physical or emotional relationship or is someone making you feel afraid or unsafe? 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
--- OUTSIDE RECORDS SUMMARY | 2024-11-27 12:48 | XMS_ITS | Referral Summary ---
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 Name Role Phone Ceci Max MD Primary Care Provi sneha Encounters Date Type Department Care Team Description 11/25/2024 Results Follow-Up [address] [phone] Debbie Patel PA 11/21/2024 9:10 AM CDT - 11/21/2024 11:59 PM CDT Hospital Encounter [facility] [address] [place] [id number] Right leg paresthesias Discharge Disposition: Discharge to home or self care 11/19/2024 3:00 PM CDT Office Visit [address] [address] Debbie Patel PA Right leg paresthesias (Primary Dx); Chronic bilateral low back pain, unspecified whether sciatica present; Overweight (BMI 25.0-29.9) 11/01/2024 7:45 AM CDT Office Visit [address] [phone] Ceci Max MD Vulvar lesion (Primary Dx); Pain of left calf; Overweight (BMI 25.0-29.9); History of obesity; Degenerative disc disease, thoracic 10/21/2024 Results Follow-Up [facility] Obstetrical Gynecology [address] [facility] [address] [place] [address] Shantell Echevarria MD 10/17/2024 5:33 PM CDT - 10/17/2024 11:59 PM CDT Hospital Encounter [facility] [address] [place] [address] Vulvar lesion Discharge Disposition: Discharge to home or self care 10/17/2024 3:30 PM CDT Office Visit [facility] Obstetrical Gynecology [address] [facility] [address] [place] [address] Shantell Echevarria MD Inclusion cyst of vulva (Primary Dx); Vulvar lesion 09/20/2024 Results Follow-Up [facility] Family Medicine [address] [phone] Ceci Max MD 09/20/2024 7:35 AM EAR FLAP BINDER Lab [facility] [address] [place] [id number] 09/20/2024 7:20 AM EAR FLAP BINDER Lab [facility] [address] [place] [id number] Screening, lipid 09/06/2024 8:00 AM EAR FLAP BINDER Office Visit [facility] Orthopedics and Sports Medicine [address] [facility] [address] [place] [address] Margarette Malagon PA Tendinitis of left foot (Primary Dx); Strain of gastrocnemius muscle of left lower extremity, initial encounter from Last 3 Months Allergies Active Allergy Reactions Criticality Noted Date Comments Other Rash High 05/26/2023 Surgical glue Swelling and rash Penicillin G Hives High 04/01/2022 Tissue Adhesive Rash Medium 04/09/2024 Medications PreviDent 5000 Booster Plus 1.1 % paste daily 2 Active polyethylene glycol (MIRALAX) 17 gram/dose bulk powder Take 17 g by mouth as needed PRN Active ibuprofen 200 mg tab/cap Take 3 tablet/capsu le (600 mg total) by mouth every 6 (six) hours as needed for pain PRN Active progesterone (PROMETRIUM) 200 mg capsule Take 1 capsule (200 mg total) by mouth nightly 3 Active ondansetron (ZOFRAN) 4 mg tablet Take 1 tablet (4 mg total) by mouth every 6 (six) hours as needed for nausea or vomiting 12 tablet 4 Active testosterone enanthate 100 mg/0.5 mL auto-injector Inject 150 mg under the skin Every 3 months Active estradioL 12.5 mg pellet by implant route Every 3 months Active acetaminophen (TYLENOL) 500 mg tablet Take 2 tablets (1,000 mg total) by mouth every 6 (six) hours as needed for pain 30 tablet 5 Active tirzepatide, weight loss, (Zepbound) 5 mg/0.5 mL pen injectorIndicati ons:Class 1 obesity without serious comorbidity with body mass index (BMI) of 30.0 to 30.9 in adult, unspecified obesity type INJECT 5MG UNDER THE SKIN ONCE WEEKLY 6 mL 1 5 Active rosuvastatin (CRESTOR) 40 mg tablet TAKE 1 TABLET(40 MG) BY MOUTH DAILY 100 tablet 1 5 Active cyclobenzaprine (FLEXERIL) 10 mg tabletIndication s:Degenerative disc disease, thoracic Take 1 tablet (10 mg total) by mouth 2 (two) times a day as needed for muscle spasms 20 tablet 2 5 Active meloxicam (MOBIC) 15 mg tablet TAKE 1 TABLET(15 MG) BY MOUTH DAILY 30 tablet 2 5 Active mupirocin (BACTROBAN) 2 % ointment Apply twice daily for 7 days to inside of nose. 22 g 4 11/20/19 25 Discontinu ed(Therapy completed) cyclobenzaprine (FLEXERIL) 10 mg tablet Take 1 tablet (10 mg total) by mouth 2 (two) times a day as needed for muscle spasms 20 tablet 5 11/02/19 25 Discontinu ed(Reorder ) meloxicam (MOBIC) 15 mg tablet Take 1 tablet (15 mg total) by mouth daily 30 tablet 2 5 11/13/19 25 Discontinu ed(Reorder ) Active Problems Problem Noted Date Diagnosed Date Regular astigmatism 10/17/2024 Migraine headache 10/17/2024 Overview (10/17/2024): Continue Ibuprofen as directed; Lower back pain 10/17/2024 Assessment & Plan (11/19/2024 4:12 PM CDT): Tendinitis of left foot 08/14/2024 Strain of gastrocnemius muscle of left lower ext remity 08/05/2024 Degenerative disc disease, thoracic 12/26/2023 Assessment & Plan (11/01/2024 8:09 AM CDT): Orders: cyclobenzaprine (FLEXERIL) 10 mg tablet; Take 1 tablet (10 mg total) by mouth 2 (two) times a day as needed for muscle spasms Assessment & Plan (07/04/2024 7:48 AM EAR FLAP BINDER): Chronic. Stable. Continue to follow with chiropractor, massage and ehr trainer. Hypercalciuria 12/07/2023 Assessment & Plan (07/04/2024 7:49 AM EAR FLAP BINDER): Chronic. Continue to follow with Nephrology. Maintain good hydration, avoid carbonated beverages, moderate protein restriction. Assessment & Plan (12/07/2023 11:34 AM CDT): Per recent labs at Urology. Follow up with Nephrology as scheduled tomorrow. Hydroureteronephrosis 05/17/2023 Assessment & Plan (05/17/2023 8:44 PM CDT): In the setting of obstructing stone CT scan showed -Interval migration of a 0.7 cm obstructing stone in the mid right ureter and worsening severe hydroureteronephrosis compared to 12/23/2022. Interval increased fat stranding surrounding the renal pelvis and right ureter. Asymmetrically enlarged right kidney compatible with edema. Antibiotics as documented elsewhere She continues to make urine -no indication for Mahajan catheterization IV fluid, antiemetics and adequate pain management Strain urine for stones. Urology following, plan for stent placement tomorrow AM Keep NPO, hold anticoagulation. Complicated UTI (urinary tract infection) 2022 Assessment & Plan (05/17/2023 8:39 PM CDT): Likely in the setting of nephrolithiasis with hydronephrosis Urinalysis showed elevated WBC and positive leukocyte with some yeast and mucus Reports urinary frequency, some right flank pain -although it may be related to obstructing stone Will treat as complicated UTI in the setting of obstructing stone in place Start antibiotics -ceftriaxone Follow-up with culture and sensitivity Kidney stone 05/11/2023 Assessment & Plan (07/04/2024 7:49 AM EAR FLAP BINDER): No stone passage since 2022. Monitor Assessment & Plan (06/02/2023 11:19 AM EAR FLAP BINDER): Acute, but will be chronic Managed by urology Update me with changes Once we know what the stone is, she may be able to adjust diet to decrease risk Update me with changes Call for questions Assessment & Plan (05/17/2023 8:44 PM CDT): Reportedly ongoing for the past 1 year Has passed multiple stones She follows outpatient with Urology She is presenting today with worsening pain and worsening hydronephrosis and UTI Adequate pain management, antiemetic, IV fluid Treat UTI documented elsewhere Positive colorectal cancer screening using Colog uard test 10/24/2022 Overview (10/24/2022): Added automatically from request for surgery [id number] Overweight (BMI 25.0-29.9) 08/09/2022 Assessment & Plan (11/19/2024 4:12 PM CDT): Assessment & Plan (11/01/2024 8:09 AM CDT): Chronic, stable BMI Follow-up includes: education provided. Assessment & Plan (07/04/2024 7:49 AM EAR FLAP BINDER): Down 10 lbs with Zepbound. BMI 29. Continue Forbes bound 5 mg, no further increase at this time. Assessment & Plan (12/07/2023 11:35 AM CDT): BMI Follow-up includes: education provided. Assessment & Plan (06/02/2023 1:07 PM EAR FLAP BINDER): Chronic, stable BMI Follow-up includes: nutrition counseling. Abnormal weight gain 08/09/2022 Assessment & Plan (06/02/2023 11:18 AM EAR FLAP BINDER): Chronic, stable We reviewed her insurance and medications We discussed healthy habits, and options for weight loss Given she is overweight, encouraged to continue healthy changes Call for questions Mixed hyperlipidemia 04/12/2022 Assessment & Plan (07/04/2024 7:49 AM EAR FLAP BINDER): Chronic. Stable. Continue rosuvastatin Assessment & Plan (05/17/2023 8:45 PM CDT): Continue statin Check thyroid function and lipid profile Assessment & Plan (04/12/2022 9:41 AM CDT): Chronic, stable Continue crestor Labs ordered Update me with any changes or concerns Postmenopausal 04/12/2022 Assessment & Plan (07/04/2024 7:50 AM EAR FLAP BINDER): Status total hysterectomy. Continue to follow with Clinic for testosterone, progesterone, estradiol Assessment & Plan (04/12/2022 9:42 AM CDT): Chronic, stable Continue to follow with her hormone specialist Update me with any changes Neuropathy 04/12/2022 Assessment & Plan (04/12/2022 9:42 AM CDT): Chronic, stable Continue lyrica Update me if symptoms are getting worse or changing, please let me know Call for questions or concerns Resolved Problems Problem Noted Date Diagnosed Date Resolved Date Well adult exam 07/03/2024 10/17/2024 Overview (07/04/2024): PMH: 07/04/24 Last pap: s/p total hysterectomy Last mammogram: 06/2024 Last dexa: age 61 Last colonoscopy: 10/2022 repeat 3 years Last tdap: 09/2022 Last Shingrix: age 51 Last eye exam: yearly Assessment & Plan (07/04/2024 7:50 AM EAR FLAP BINDER): PMH: 07/04/24 Last pap: s/p total hysterectomy Last mammogram: 06/2024 Last dexa: age 61 Last colonoscopy: 10/2022 repeat 3 years Last tdap: 09/2022 Last Shingrix: age 51 Last eye exam: yearly Immunizations Immunization Administration Dates Next Due Influenza, Quadrivalent, Spl it, Intramuscular 04/03/2019,04/24/2017,05/24/2016 Influenza, Quadrivalent, Spl it, Preservative Free, Intramuscular 05/24/2022,04/03/2020 Influenza, Unspecified 07/25/2024(Deferr ed: Patient Refused),04/16/2024,04/16/2024(Deferre d: Patient decision),04/16/2023,04/16/2022,2021(Deferred: Patient Refused),05/17/2021,04/16/2021(Deferre d: Patient Refused) MMR 04/02/2020 Moderna SARS-CoV-2 Monovalen t Vaccination (12+ YRS) 10/16/2020,09/16/2020 Tdap 09/22/2022 Social History Tobacco Use Types Packs/Day Years Used Date Smoking Tobacco: Never Smokeless Tobacco: Never Tobacco Cessation:Counseling Given: Not Answered [facility] Utilities Answer Date Recorded In the past 12 months has [employer], oil, or water [employer] threatened to shut off services in your [...] week 05/18/2023 How often do you attend [facility] or [facility]lev[facility] services? More than 4 times per year 05/18/2023 Do you belong to any clubs o r organizations such as rastafarian groups, unions, fraternal or athletic groups, or [...] place to sleep or slept in a detention (including now)? No 05/18/2023 PHQ-9 Answer Date [...] file Not on file Not on file Last Filed Vital Signs Vital Sign Reading Time Taken Comments Blood Pressure 110/68 11/19/2024 2:56 PM CDT Pulse 72 11/19/2024 2:56 PM CDT Temperature 36.4 C (97.5 F) 11/19/2024 2:56 PM CDT Respiratory Rate 14 11/19/2024 2:56 PM CDT Oxygen Saturation 99% 11/19/2024 2:56 PM CDT Inhaled Oxygen Concentration - - Weight 77.2 kg (170 lb 3.2 oz) 11/19/2024 2:56 P M CDT Height 172.7 cm (5' 8 ) 11/19/2024 2:56 PM CDT Body Mass Index 25.88 11/19/2024 2:56 PM CDT Plan of Treatment Not on file Medical Devices Explanted Type Area Clothing Pattern Preparer Device Identifier Shelf Expiration Date Model / Serial / Lot Stent Explanted:Qty: 1 on 05/26/2023 by Rikki Jasso MD at [facility] Stent Right: Kidney [employer] [id number] 6fr 26cm 145cm Radiopaque Positioner Filiform Flexible Tip - [id number] Implanted:Qty: 1 on 05/26/2023 by Rikki Jasso MD at [facility] Explanted:Qty: 1 on 06/14/2023 by Rikki Jasso MD Right: Kidney [employer] [id number] 01/19/2026 [id number] / / [id number] [employer] Stent Ureteral Set Double Pigtail Radiopaque Tip [employer] [id number] Polyurethane Hydrophilic Coated [id number] - [id number] Implanted:Qty: 1 on 05/18/2023 by Julio Fischer MD at [facility] [place] [facility] Explanted:Qty: 1 on 06/14/2023 by Rikki Jasso MD Right: Urethra [employer] [facility] [id number] / / [id number] Procedures Procedure Name Priority Date/Time Associated Diagnosis Comments XR SPINE LUMBAR 2 OR 3 VIEWS Schedule Routine, Read Routine (OP Routine) 11/21/2024 9:27 AM CDT Right leg paresthesias SKIN EXCISION Routine 10/17/2024 4:20 PM CDT Vulvar lesion Inclusion cyst of vulva SURGICAL PATHOLOGY Routine 10/17/2024 3: 45 PM CDT Vulvar lesion EGFR Routine 09/20/2024 7:36 AM EAR FLAP BINDER DIFFERENTIAL AUTO Routine 09/20/2024 7:3 6 AM EAR FLAP BINDER LIPID PANEL Routine 09/20/2024 7:36 AM EAR FLAP BINDER Screening, lipid ALBUMIN Routine 09/20/2024 7:36 AM EAR FLAP BINDER VITAMIN B1 Routine 09/20/2024 7:36 AM EAR FLAP BINDER IRON PROFILE W/ IBC Routine 09/20/2024 7 :36 AM EAR FLAP BINDER CBC WITH AUTO DIFFERENTIAL Routine 09/20/2024 7:36 AM EAR FLAP BINDER BASIC METABOLIC PANEL Routine 09/20/2024 7:36 AM EAR FLAP BINDER PREALBUMIN Routine 09/20/2024 7:36 AM EAR FLAP BINDER SCREENING MAMMOGRAM BILATERAL W DIONE Schedule Routine, Read Routine (OP Routine) 07/02/2024 3:03 PM EAR FLAP BINDER Encounter for screening mammogram for malignant neoplasm of breast COLONOSCOPY 11/17/2022 8:21 AM CDT from Last 3 Months or Most Recently Relevant to Health Maintenance Results * XR Spine Lumbar 2 Or 3 Vw (11/21/2024 9:27 AM CDT) Anatomical Region Laterality Modality Spine N/A Computed Radiogr aphy 11/24/2024 12:0 2 PM CDT Narrative 11/24/2024 12:06 PM CDT EXAM DESCRIPTION: XR SPINE LUMBAR 2 OR 3 VIEWS REASON FOR STUDY: right leg paresthesia Right sided low back pain and skin sensitivity since 11/13 FINDINGS: Three views submitted with comparison 12/12/2023. No acute fracture. Grade 1 anterolisthesis L4 on L5. Mild L4-L5 degenerative disc disease. Trip transitional L5 vertebra. IMPRESSION: Mild L4-L5 degenerative disc disease with grade 1 anterolisthesis. THIS IS AN ELECTRONICALLY VERIFIED FINAL REPORT 11/24/2024 12:06 PM - Electronically signed by Jakub Gomez M.D. MF: [email or web address] Report ID: [id number] Reading Location: [id number] Procedure Note Jakub Gomez MD - 11/24/2024 EXAM DESCRIPTION: XR SPINE LUMBAR 2 OR 3 VIEWS REASON FOR STUDY: right leg paresthesia Right sided low back pain and skin sensitivity since 11/13 FINDINGS: Three views submitted with comparison 12/12/2023. No acute fracture. Grade 1 anterolisthesis L4 on L5. Mild L4-A2icujlanosbla disc disease. Trip transitional L5 vertebra. IMPRESSION: Mild L4-L5 degenerative disc disease with grade 1 anterolisthesis. THIS IS AN ELECTRONICALLY VERIFIED FINAL REPORT 11/24/2024 12:06 PM - Electronically signed by Jakub Gomez M.D. MF: [email or web address] Report ID: [id number] Reading Location: [id number] Debbie CORONA IMG XR PROCEDURES Final R esult * Skin excision (10/17/2024 4:20 PM CDT) Narrative Shantell Echevarria MD - 10/17/2024 4:20 PM CDT Shantell Echevarria MD 10/17/2024 4:22 PM Skin excision Date/Time: 10/17/2024 4:20 PM Performed by: Shantell Echevarria MD Authorized by: Shantell Echevarria MD Local anesthesia used: yes Anesthesia: local infiltration Anesthesia: Local anesthesia used: yes Comments: The skin was cleaned with betadine. Anesthesia was injected into four areas of planned lesion excision. Once anesthesia was confirmed. The epidermal layer was cut overlying the white cystic structure. The contents were removed using sharp and blunt dissection. This was repeated on a total of 6 lesions. Shantell Echevarria MD DERM PROCEDURE ORDERABLES Final Result * Surgical pathology (10/17/2024 3:45 PM CDT) Tissue (Vulva / Labia Biopsy) 10/17/2024 3:45 PM CDT 10/18/2024 8:16 AM CDT Narrative PATHOLOGY [facility] - 10/21/2024 5:18 PM CDT [facility] Department of Pathology [address] [place] [address] Note to Patients: This report may contain a detailed description of human tissue sent by a health care provider to the laboratory for pathologic evaluation. The content of this report is essential for diagnosis and may provide important critical findings. This information may be unfamiliar to patients to review without a medical professional present. It is advised that the patient review this report in the presence of a health care provider who can answer questions and explain the details. Final Report Patient Name: PAIGE ANTHONY : 1975 (Age: 48) Gender: F Address: [address] [place] [address] Hospital #: [id number] Service: UNKNOWN Location: Patient Type: [facility] SPECIMEN Taken: 10/17/2024 Received: 10/18/2024 Accessioned: 10/18/2024 Reported: 10/21/2024 Physician(s): Bernarda Echevarria M.D. Diagnosis: Vulva, left, biopsy: - Epidermoid cyst - No no evidence of malignancy Saritha Beebe M.D. Report Electronically Reviewed and Signed Out By Saritha Beebe M.D. 10/21/2024 17:18:55 Specimen(s) Received: A: Left vulvar lesion Microscopic Description: Microscopic examination is performed. Microscopic examination is performed. Clinical History: The patient is a 48-year-old woman with a vulvar lesion. Operative procedure: Left vulvar lesion biopsy. Gross Description Received in formalin, labeled with the patient s identifiers and left vulvar lesion and consists of two farias-pink, friable tissue fragments each measuring 0.3 cm. Entirely submitted. Labeled A1. Jar 0. jjb/10/18/2024 09:46 ALEX Hendricks, PA ([facility]) Microscopic slide review and interpretation for this case was performed at [facility], Department of Surgical Pathology, [address] [facility], [place] [id number], [place] [address] [place] # [id number] Shantell Echevarria MD LAB PATHOLOGY ORDERABLES F inal Result PATHOLOGY [facility] * eGFR (09/20/2024 7:36 AM EAR FLAP BINDER) eGFR 71 >=60 mL/min/1. 73 m2 Comment: Interpretive Data Reference Interval Normal >/= 90 mL/min/1.73m2 Mildly decreased* 60 - 89 mL/min/1.73m2 Mildly to moderately decreased 45 - 59 mL/min/1.73m2 Moderately to severely decreased 30 - 44 mL/min/1.73m2 Severely decreased 15 - 29 mL/min/1.73m2 Kidney Failure < 15 mL/min/1.73m2 *Relative to young adult level Estimated glomerular filtration rate is determined by the 2020 CKD-EPI equation recommended by the National Kidney Foundation (A Unifying Approach to GFR Estimation: Recommendations of the NKF-ASK Task Force on Reassessing the Inclusion of Race in Diagnosing Kidney Disease, JASN 202). The CKD-EPI equation should not be used for patients with unstable renal function and has not been validated in children and those over 70. Current interpretive data was last reviewed 2021. Testing performed by: [address] [address] Blood 09/20/2024 7:36 AM EAR FLAP BINDER 09/20/2024 8:20 AM EAR FLAP BINDER Devonte Onofre MD LAB BLOOD ORDERABLES Sherri natanael Result [facility] [address] [facility] Department [place] [address] * Differential, auto (09/20/2024 7:36 AM EAR FLAP BINDER) Neutrophil abs 4.4 1.5 - 6.5 K/cumm Comment:Testing performed by : [address] [address] Imm gran abs 0.0 0.0 - 0.1 K/cumm [facility] Comment:Testing performed by : [address] [address] Lymphocyte abs 1.4 0.8 - 3.3 K/cumm [facility] Comment:Testing performed by : [address] [address] Monocyte abs 0.5 0.2 - 0.8 K/cumm [facility] Comment:Testing performed by : [address] [address] Eosinophil abs 0.2 0.0 - 0.5 K/cumm [facility] Comment:Testing performed by : [address] [address] Basophil abs 0.1 0.0 - 0.1 K/cumm [facility] Comment:Testing performed by : [address] [address] Neutrophil pct 65.9 % [facility] Comment: Interpretive Data Percent cell count reference ranges are not reported, since discordance with absolute values may lead to misinterpretation of CBC data. Current Interpretive Data was last revised on 2017. Testing performed by: [address] [address] Imm gran pct 0.5 % [facility] Comment: Interpretive Data Percent cell count reference ranges are not reported, since discordance with absolute values may lead to misinterpretation of CBC data. Current Interpretive Data was last revised on 2017. Testing performed by: [address] [address] Lymphocyte pct 21.5 % [facility] Comment: Interpretive Data Percent cell count reference ranges are not reported, since discordance with absolute values may lead to misinterpretation of CBC data. Current Interpretive Data was last revised on 2017. Testing performed by: [address] [address] Monocyte pct 7.7 % [facility] Comment: Interpretive Data Percent cell count reference ranges are not reported, since discordance with absolute values may lead to misinterpretation of CBC data. Current Interpretive Data was last revised on 2017. Testing performed by: [address] [address] Eosinophil pct 3.3 % [facility] Comment: Interpretive Data Percent cell count reference ranges are not reported, since discordance with absolute values may lead to misinterpretation of CBC data. Current Interpretive Data was last revised on 2017. Testing performed by: [address] [address] Basophil pct 1.1 % [facility] Comment: Interpretive Data Percent cell count reference ranges are not reported, since discordance with absolute values may lead to misinterpretation of CBC data. Current Interpretive Data was last revised on 2017. Testing performed by: [address] [address] Blood 09/20/2024 7:36 AM EAR FLAP BINDER 09/20/2024 7:36 AM EAR FLAP BINDER us Devonte Onfore MD LAB BLOOD ORDERABLES Sherri natanael Result [facility] [address] [facility] Department [place] [address] * Iron profile w/ IBC (09/20/2024 7:36 AM EAR FLAP BINDER) [facility] Iron TNP 35 - 145 mcg/dL Comment:Testing performed by : [address] [address] TIBC See Comment 250 - 400 [facility] Comment: Unable to calculate Testing performed by: [address] [address] Transferrin saturation See Comment 20 - 50 [facility] Comment: Unable to calculate Testing performed by: [address] [address] Blood 09/20/2024 7:36 AM EAR FLAP BINDER 09/20/2024 8:20 AM EAR FLAP BINDER Devonte Onofre MD LAB BLOOD ORDERABLES Sherri santoyo Result [facility] [facility] [facility] Department [place] [address] * (ABNORMAL) CBC with auto differential (09/20/2024 7:36 AM EAR FLAP BINDER) [facility] WBC 6.7 3.8 - 9.9 K/cumm Comment:Testing performed by : [address] [address] Hgb 17.4(H) 11.9 - 15.5 g/dL [facility] Comment:Testing performed by : [address] [address] Hct 50.9(H) 35.6 - 45.5 % [facility] Comment:Testing performed by : [address] [address] Plt 209 150 - 400 K/cumm [facility] Comment:Testing performed by : [address] [address] MPV 10.2 9.1 - 12.3 fL [facility] Comment:Testing performed by : [address] [address] RBC 5.68(H) 3.90 - 5.20 M/cumm [facility] Comment:Testing performed by : [address] [address] MCV 89.6 81.3 - 96.4 fL [facility] Comment:Testing performed by : [address] [address] MCH 30.6 27.1 - 33.3 pg [facility] Comment:Testing performed by : [address] [address] MCHC 34.2 32.3 - 35.7 g/dL [facility] Comment:Testing performed by : [address], [address] RDW CV 12.4 11.1 - 14.9 % [facility] Comment:Testing performed by : [address], [address] RDW SD 41.0 35.7 - 48.1 fL [facility] Comment:Testing performed by : [address], [place]., [address] NRBC abs 0.00 0.00 - 0.01 K/cumm [facility] Comment:Testing performed by : [address] [address] Blood 09/20/2024 7:36 AM EAR FLAP BINDER 09/20/2024 8:21 AM EAR FLAP BINDER Devonte Onofre MD LAB BLOOD ORDERABLES Sherri santoyo Result [facility] [address] [facility] Department [place] [address] * Vitamin B1 (09/20/2024 7:36 AM EAR FLAP BINDER) Pathologist [facility] [place] Thiamine (Vit B1) 107 70 - 180 nmol/L [facility] Comment: ADDITIONAL INFORMATION This test was developed and its performance characteristics determined by [facility] in a manner consistent with CLIA requirements. This test has not been cleared or approved by the U.S. Food and Drug Administration. Test Performed by: [facility] [address] [place] [address] Ultrasound Technologist: Cuate Jackson Ph.D.; CLIA# [id number] Testing performed by: [facility], [address] [place] [address], [place]., [address] Blood 09/20/2024 7:36 AM EAR FLAP BINDER 09/20/2024 8:20 AM EAR FLAP BINDER us Devonte Onofre MD LAB BLOOD ORDERABLES Sherri santoyo Result HARIS [address] [facility] Department [place] [address] [facility] ref [facility] * Prealbumin (09/20/2024 7:36 AM EAR FLAP BINDER) Prealbumin 24.3 20.0 - 40.0 mg/dL Specimen (Source) Anatomical Location / Laterality [id number]|2024-11-27 12:48:00|2024-11-27 12:47:00|XMS_ITS|BKG DAJASMEET|External Medical Summaries|[id number]|" Clinical Summary Created on: November 27, 2024 AnthonyPaige : 1975 Sex: Female Author Organization [address] Address [address] [place] [id number] 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 Name Role Phone Ceci Max MD Primary Care Provi sneha Allergies Active Allergy Reactions Criticality Noted Date Comments Other Rash High 05/26/2023 Surgical glue Swelling and rash Penicillin G Hives High 04/01/2022 Tissue Adhesive Rash Medium 04/09/2024 Medications PreviDent 5000 Booster Plus 1.1 % paste daily 2 Active polyethylene glycol (MIRALAX) 17 gram/dose bulk powder Take 17 g by mouth as needed PRN Active ibuprofen 200 mg tab/cap Take 3 tablet/capsu le (600 mg total) by mouth every 6 (six) hours as needed for pain PRN Active progesterone (PROMETRIUM) 200 mg capsule Take 1 capsule (200 mg total) by mouth nightly 3 Active ondansetron (ZOFRAN) 4 mg tablet Take 1 tablet (4 mg total) by mouth every 6 (six) hours as needed for nausea or vomiting 12 tablet 4 Active testosterone enanthate 100 mg/0.5 mL auto-injector Inject 150 mg under the skin Every 3 months Active estradioL 12.5 mg pellet by implant route Every 3 months Active acetaminophen (TYLENOL) 500 mg tablet Take 2 tablets (1,000 mg total) by mouth every 6 (six) hours as needed for pain 30 tablet 5 Active tirzepatide, weight loss, (Zepbound) 5 mg/0.5 mL pen injectorIndicati ons:Class 1 obesity without serious comorbidity with body mass index (BMI) of 30.0 to 30.9 in adult, unspecified obesity type INJECT 5MG UNDER THE SKIN ONCE WEEKLY 6 mL 1 5 Active rosuvastatin (CRESTOR) 40 mg tablet TAKE 1 TABLET(40 MG) BY MOUTH DAILY 100 tablet 1 5 Active cyclobenzaprine (FLEXERIL) 10 mg tabletIndication s:Degenerative disc disease, thoracic Take 1 tablet (10 mg total) by mouth 2 (two) times a day as needed for muscle spasms 20 tablet 2 5 Active meloxicam (MOBIC) 15 mg tablet TAKE 1 TABLET(15 MG) BY MOUTH DAILY 30 tablet 2 5 Active mupirocin (BACTROBAN) 2 % ointment Apply twice daily for 7 days to inside of nose. 22 g 4 11/20/19 25 Discontinu ed(Therapy completed) cyclobenzaprine (FLEXERIL) 10 mg tablet Take 1 tablet (10 mg total) by mouth 2 (two) times a day as needed for muscle spasms 20 tablet 5 11/02/19 25 Discontinu ed(Reorder ) meloxicam (MOBIC) 15 mg tablet Take 1 tablet (15 mg total) by mouth daily 30 tablet 2 5 11/13/19 25 Discontinu ed(Reorder ) Active Problems Problem Noted Date Diagnosed Date Regular astigmatism 10/17/2024 Migraine headache 10/17/2024 Overview (10/17/2024): Continue Ibuprofen as directed; Lower back pain 10/17/2024 Assessment & Plan (11/19/2024 4:12 PM CDT): Tendinitis of left foot 08/14/2024 Strain of gastrocnemius muscle of left lower ext remity 08/05/2024 Degenerative disc disease, thoracic 12/26/2023 Assessment & Plan (11/01/2024 8:09 AM CDT): Orders: cyclobenzaprine (FLEXERIL) 10 mg tablet; Take 1 tablet (10 mg total) by mouth 2 (two) times a day as needed for muscle spasms Assessment & Plan (07/04/2024 7:48 AM EAR FLAP BINDER): Chronic. Stable. Continue to follow with chiropractor, massage and ehr trainer. Hypercalciuria 12/07/2023 Assessment & Plan (07/04/2024 7:49 AM EAR FLAP BINDER): Chronic. Continue to follow with Nephrology. Maintain good hydration, avoid carbonated beverages, moderate protein restriction. Assessment & Plan (12/07/2023 11:34 AM CDT): Per recent labs at Urology. Follow up with Nephrology as scheduled tomorrow. Hydroureteronephrosis 05/17/2023 Assessment & Plan (05/17/2023 8:44 PM CDT): In the setting of obstructing stone CT scan showed -Interval migration of a 0.7 cm obstructing stone in the mid right ureter and worsening severe hydroureteronephrosis compared to 12/23/2022. Interval increased fat stranding surrounding the renal pelvis and right ureter. Asymmetrically enlarged right kidney compatible with edema. Antibiotics as documented elsewhere She continues to make urine -no indication for Mahajan catheterization IV fluid, antiemetics and adequate pain management Strain urine for stones. Urology following, plan for stent placement tomorrow AM Keep NPO, hold anticoagulation. Complicated UTI (urinary tract infection) 2022 Assessment & Plan (05/17/2023 8:39 PM CDT): Likely in the setting of nephrolithiasis with hydronephrosis Urinalysis showed elevated WBC and positive leukocyte with some yeast and mucus Reports urinary frequency, some right flank pain -although it may be related to obstructing stone Will treat as complicated UTI in the setting of obstructing stone in place Start antibiotics -ceftriaxone Follow-up with culture and sensitivity Kidney stone 05/11/2023 Assessment & Plan (07/04/2024 7:49 AM EAR FLAP BINDER): No stone passage since 2022. Monitor Assessment & Plan (06/02/2023 11:19 AM EAR FLAP BINDER): Acute, but will be chronic Managed by urology Update me with changes Once we know what the stone is, she may be able to adjust diet to decrease risk Update me with changes Call for questions Assessment & Plan (05/17/2023 8:44 PM CDT): Reportedly ongoing for the past 1 year Has passed multiple stones She follows outpatient with Urology She is presenting today with worsening pain and worsening hydronephrosis and UTI Adequate pain management, antiemetic, IV fluid Treat UTI documented elsewhere Positive colorectal cancer screening using Colog uard test 10/24/2022 Overview (10/24/2022): Added automatically from request for surgery [id number] Overweight (BMI 25.0-29.9) 08/09/2022 Assessment & Plan (11/19/2024 4:12 PM CDT): Assessment & Plan (11/01/2024 8:09 AM CDT): Chronic, stable BMI Follow-up includes: education provided. Assessment & Plan (07/04/2024 7:49 AM EAR FLAP BINDER): Down 10 lbs with Zepbound. BMI 29. Continue Forbes bound 5 mg, no further increase at this time. Assessment & Plan (12/07/2023 11:35 AM CDT): BMI Follow-up includes: education provided. Assessment & Plan (06/02/2023 1:07 PM EAR FLAP BINDER): Chronic, stable BMI Follow-up includes: nutrition counseling. Abnormal weight gain 08/09/2022 Assessment & Plan (06/02/2023 11:18 AM EAR FLAP BINDER): Chronic, stable We reviewed her insurance and medications We discussed healthy habits, and options for weight loss Given she is overweight, encouraged to continue healthy changes Call for questions Mixed hyperlipidemia 04/12/2022 Assessment & Plan (07/04/2024 7:49 AM EAR FLAP BINDER): Chronic. Stable. Continue rosuvastatin Assessment & Plan (05/17/2023 8:45 PM CDT): Continue statin Check thyroid function and lipid profile Assessment & Plan (04/12/2022 9:41 AM CDT): Chronic, stable Continue crestor Labs ordered Update me with any changes or concerns Postmenopausal 04/12/2022 Assessment & Plan (07/04/2024 7:50 AM EAR FLAP BINDER): Status total hysterectomy. Continue to follow with Clinic for testosterone, progesterone, estradiol Assessment & Plan (04/12/2022 9:42 AM CDT): Chronic, stable Continue to follow with her hormone specialist Update me with any changes Neuropathy 04/12/2022 Assessment & Plan (04/12/2022 9:42 AM CDT): Chronic, stable Continue lyrica Update me if symptoms are getting worse or changing, please let me know Call for questions or concerns Resolved Problems Problem Noted Date Diagnosed Date Resolved Date Well adult exam 07/03/2024 10/17/2024 Overview (07/04/2024): PMH: 07/04/24 Last pap: s/p total hysterectomy Last mammogram: 06/2024 Last dexa: age 61 Last colonoscopy: 10/2022 repeat 3 years Last tdap: 09/2022 Last Shingrix: age 51 Last eye exam: yearly Assessment & Plan (07/04/2024 7:50 AM EAR FLAP BINDER): PMH: 07/04/24 Last pap: s/p total hysterectomy Last mammogram: 06/2024 Last dexa: age 61 Last colonoscopy: 10/2022 repeat 3 years Last tdap: 09/2022 Last Shingrix: age 51 Last eye exam: yearly Encounters Date Type Department Care Team Description 11/25/2024 Results Follow-Up [facility] Medicine [address] [place] [phone] Debbie Patel PA 11/21/2024 9:10 AM CDT - 11/21/2024 11:59 PM CDT Hospital Encounter [facility] Diagnostic Imaging [address] [place] [id number] Right leg paresthesias Discharge Disposition: Discharge to home or self care 11/19/2024 3:00 PM CDT Office Visit [address] [phone] Debbie Patel PA Right leg paresthesias (Primary Dx); Chronic bilateral low back pain, unspecified whether sciatica present; Overweight (BMI 25.0-29.9) 11/01/2024 7:45 AM CDT Office Visit [address] [phone] Ceci Max MD Vulvar lesion (Primary Dx); Pain of left calf; Overweight (BMI 25.0-29.9); History of obesity; Degenerative disc disease, thoracic 10/21/2024 Results Follow-Up [facility] Obstetrical Gynecology [address] [facility] [address] [place] [address] Shantell Echevarria MD 10/17/2024 5:33 PM CDT - 10/17/2024 11:59 PM CDT Hospital Encounter [facility] Lab [address] [place] [address] Vulvar lesion Discharge Disposition: Discharge to home or self care 10/17/2024 3:30 PM CDT Office Visit [facility] Obstetrical Gynecology [address] [facility] [address] [place] [phone] Shantell Echevarria MD Inclusion cyst of vulva (Primary Dx); Vulvar lesion 09/20/2024 7:35 AM EAR FLAP BINDER Lab [facility] Lab [address] [place] [id number] 09/20/2024 7:20 AM EAR FLAP BINDER Lab [facility] Lab [address] [place] [id number] Screening, lipid 09/20/2024 Results Follow-Up [facility] Family Medicine [address] [phone] Ceci Max MD 09/06/2024 8:00 AM EAR FLAP BINDER Office Visit [facility] Orthopedics and Sports Medicine [address] [facility] [address] [place] [address] Margarette Malagon PA Tendinitis of left foot (Primary Dx); Strain of gastrocnemius muscle of left lower extremity, initial encounter from Last 3 Months Immunizations Immunization Administration Dates Next Due Influenza, Quadrivalent, Spl it, Intramuscular 04/03/2019,04/24/2017,05/24/2016 Influenza, Quadrivalent, Spl it, Preservative Free, Intramuscular 05/24/2022,04/03/2020 Influenza, Unspecified 07/25/2024(Deferr ed: Patient Refused),04/16/2024,04/16/2024(Deferre d: Patient decision),04/16/2023,04/16/2022,2021(Deferred: Patient Refused),05/17/2021,04/16/2021(Deferre d: Patient Refused) MMR 04/02/2020 Moderna SARS-CoV-2 Monovalen t Vaccination (12+ YRS) 10/16/2020,09/16/2020 Tdap 09/22/2022 Surgical History Surgery Date Site/Laterality Comments KNEE CARTILAGE SURGERY Right x2, 2007 and 02/23/2023 HYSTERECTOMY 2010 different surgeries enlarged uterus, ovarian cysts turned into non cancerous tumors on right then removed left URETERAL STENT PLACEMENT 05/18/2023 Right and 05/26/2023 MASTOPEXY 06/16/2023 - 07/16/2023 Bilateral Medical History Medical History Date Comments Colon polyp Asthma 2016 Depression Approx 25 yrs. Ago Hyperlipidemia Sleep apnea does not wear cp ap Allergic rhinitis spring and Food intolerance spicy and dried fruit Headache migraines in the past Shallow breathing Anxiety Approx 25yrs.ago PTSD (post-traumatic stress disorder) Kidney stone Mar 26, 2022 Varicella Arthritis 1995 Abnormal Pap smear of cervix Family History Medical History Relation Name Comments Heart disease Brother 1 Oli Dario Vision loss Brother 1 Oli Dario Vision loss Brother 2 Gunnar Dario Heart attack Father Amrik Dario Heart disease Father Amrik Dario Hyperlipidemia Father Amrik Dario Stroke Father Amrik Dario Vision loss Father Amrik Dario Breast cancer Father's Sister No Known Problems Maternal Grandfather Alzheimer's disease Maternal Grandmother Clovis hand Asthma Mother Rand Dario Vision loss Mother Rand Dario Cancer Paternal Grandfather Marvel Bishop Jr. Diabetes Paternal Grandfather Marvel Bishop Jr. Hyperlipidemia Paternal Grandfather Marvel Bishop Jr. Cancer Paternal Grandmother Charissa Dario Colon cancer Neg Hx Ovarian cancer Neg Hx Uterine cancer Neg Hx Relation Name Status Comments Brother 1 Oli Dario Alive Brother 2 Gunnar Dario Father Amrik Dario Alive Father's Sister Alive Maternal Grandfather Maternal Grandmother [place] Mother Rand Dario Alive Paternal Grandfather Marvel Bishop Jr. Paternal Grandmother Charissa Dario Sister Alive Social History Tobacco Use Types Packs/Day Years Used Date Smoking Tobacco: Never Smokeless Tobacco: Never Tobacco Cessation:Counseling Given: Not Answered [facility] Utilities Answer Date Recorded In the past 12 months has th e electric, gas, oil, or water company threatened [...] often do you attend chur ch or alevism services? More than 4 times per year 05/18/2023 Do you belong to any clubs o r organizations such as rastafarian groups, unions, fraternal or athletic groups, or [...] place to sleep or slept in a detention (including now)? No 05/18/2023 PHQ-9 Answer Date [...] file Not on file Not on file Obstetrics History Para Term AB IAB SAB Ectopic Multiple Livin g Live Births 4 1 1 1 3 3 Date Outcome GA Total Labor Labor/2nd/3rd Weight Sex Type Anes PTL Sydni A1 A5 Name Clin Term Vag-S pont Living Vag-S pont Living Vag-S pont Living AB Comments Menarche: 13 Age at first delivery: 17 Menopause: Hyst Last Filed Vital Signs Vital Sign Reading Time Taken Comments Blood Pressure 110/68 11/19/2024 2:56 PM CDT Pulse 72 11/19/2024 2:56 PM CDT Temperature 36.4 C (97.5 F) 11/19/2024 2:56 PM CDT Respiratory Rate 14 11/19/2024 2:56 PM CDT Oxygen Saturation 99% 11/19/2024 2:56 PM CDT Inhaled Oxygen Concentration - - Weight 77.2 kg (170 lb 3.2 oz) 11/19/2024 2:56 P M CDT Height 172.7 cm (5' 8 ) 11/19/2024 2:56 PM CDT Body Mass Index 25.88 11/19/2024 2:56 PM CDT Plan of Treatment Health Maintenance Due Date Last Done Comments Hepatitis C Screening 1975 Hepatitis B Screening 1994 Covid-19 Vaccine ( season) 2024 10/16/2020, 09/16/2020 Breast Cancer Screening-Mammogram 07/02/2025 07/02/2024, 01/03/2023, 09/24/2021, Additional history exists Regular Well Visit/Exam 18-64 07/04/2025 07/04/2024 Colon Cancer Screening-Colonoscopy 11/17/2025 11/17/2022 Depression Screening 11/19/2025 11/19/2024, 11/19/2024, 11/01/2024, Additional history exists DTaP/Tdap/Td Vaccine (2 - Td or Tdap) 09/22/2032 09/22/2022 Influenza Vaccine Completed 04/16/2024, , 05/24/2022, Additional history exists Pneumococcal vaccine <65 Aged Out No longer eligible based on patient's age to complete this topic Medical Devices Explanted Type Area Clothing Pattern Preparer Device Identifier Shelf Expiration Date Model / Serial / Lot Stent Explanted:Qty: 1 on 05/26/2023 by Rikki Jasso MD at [facility] Stent Right: Kidney [employer] [id number] [id number] 26cm 145cm Radiopaque Positioner Filiform Flexible Tip - [id number] Implanted:Qty: 1 on 05/26/2023 by Rikki Jasso MD at [facility] Explanted:Qty: 1 on 06/14/2023 by Rikki Jasso MD Right: Kidney [employer] [id number] 01/19/2026 [id number] / / [id number] [employer] Stent Ureteral Set Double Pigtail Radiopaque Tip Universa [id number] Polyurethane Hydrophilic Coated [id number] - [id number] Implanted:Qty: 1 on 05/18/2023 by Julio Fischer MD at [facility] Explanted:Qty: 1 on 06/14/2023 by Rikki Jasso MD Right: Urethra [employer] [id number] / / [id number] Procedures Procedure Name Priority Date/Time Associated Diagnosis Comments XR SPINE LUMBAR 2 OR 3 VIEWS Schedule Routine, Read Routine (OP Routine) 11/21/2024 9:27 AM CDT Right leg paresthesias SKIN EXCISION Routine 10/17/2024 4:20 PM CDT Vulvar lesion Inclusion cyst of vulva SURGICAL PATHOLOGY Routine 10/17/2024 3: 45 PM CDT Vulvar lesion EGFR Routine 09/20/2024 7:36 AM EAR FLAP BINDER DIFFERENTIAL AUTO Routine 09/20/2024 7:3 6 AM EAR FLAP BINDER LIPID PANEL Routine 09/20/2024 7:36 AM EAR FLAP BINDER Screening, lipid ALBUMIN Routine 09/20/2024 7:36 AM EAR FLAP BINDER VITAMIN B1 Routine 09/20/2024 7:36 AM EAR FLAP BINDER IRON PROFILE W/ IBC Routine 09/20/2024 7 :36 AM EAR FLAP BINDER CBC WITH AUTO DIFFERENTIAL Routine 09/20/2024 7:36 AM EAR FLAP BINDER BASIC METABOLIC PANEL Routine 09/20/2024 7:36 AM EAR FLAP BINDER PREALBUMIN Routine 09/20/2024 7:36 AM EAR FLAP BINDER SCREENING MAMMOGRAM BILATERAL W DIONE Schedule Routine, Read Routine (OP Routine) 07/02/2024 3:03 PM EAR FLAP BINDER Encounter for screening mammogram for malignant neoplasm of breast COLONOSCOPY 11/17/2022 8:21 AM CDT from Last 3 Months or Most Recently Relevant to Health Maintenance Results * XR Spine Lumbar 2 Or 3 Vw (11/21/2024 9:27 AM CDT) Anatomical Region Laterality Modality Spine N/A Computed Radiogr aphy 11/24/2024 12:0 2 PM CDT Narrative 11/24/2024 12:06 PM CDT EXAM DESCRIPTION: XR SPINE LUMBAR 2 OR 3 VIEWS REASON FOR STUDY: right leg paresthesia Right sided low back pain and skin sensitivity since 11/13 FINDINGS: Three views submitted with comparison 12/12/2023. No acute fracture. Grade 1 anterolisthesis L4 on L5. Mild L4-L5 degenerative disc disease. Trip transitional L5 vertebra. IMPRESSION: Mild L4-L5 degenerative disc disease with grade 1 anterolisthesis. THIS IS AN ELECTRONICALLY VERIFIED FINAL REPORT 11/24/2024 12:06 PM - Electronically signed by Jakub Gomez M.D. MF: [id number] Report ID: [id number] Reading Location: [id number] Procedure Note Jakub Gomez MD - 11/24/2024 EXAM DESCRIPTION: XR SPINE LUMBAR 2 OR 3 VIEWS REASON FOR STUDY: right leg paresthesia Right sided low back pain and skin sensitivity since 11/13 FINDINGS: Three views submitted with comparison 12/12/2023. No acute fracture. Grade 1 anterolisthesis L4 on L5. Mild L4-R6ajotudatvdxl disc disease. Trip transitional L5 vertebra. IMPRESSION: Mild L4-L5 degenerative disc disease with grade 1 anterolisthesis. THIS IS AN ELECTRONICALLY VERIFIED FINAL REPORT 11/24/2024 12:06 PM - Electronically signed by Jakub Gomez M.D. MF: [email or web address] Report ID: [id number] Reading Location: [id number] Debbie CORONA IM XR PROCEDURES Final R esult * Skin excision (10/17/2024 4:20 PM CDT) Narrative Shantell Echevarria MD - 10/17/2024 4:20 PM CDT Shantell Echevarria MD 10/17/2024 4:22 PM Skin excision Date/Time: 10/17/2024 4:20 PM Performed by: Shantell Echevarria MD Authorized by: Shantell Echevarria MD Local anesthesia used: yes Anesthesia: local infiltration Anesthesia: Local anesthesia used: yes Comments: The skin was cleaned with betadine. Anesthesia was injected into four areas of planned lesion excision. Once anesthesia was confirmed. The epidermal layer was cut overlying the white cystic structure. The contents were removed using sharp and blunt dissection. This was repeated on a total of 6 lesions. Shantell Echevarria MD DERM PROCEDURE ORDERABLES Final Result * Surgical pathology (10/17/2024 3:45 PM CDT) Tissue (Vulva / Labia Biopsy) 10/17/2024 3:45 PM CDT 10/18/2024 8:16 AM CDT Narrative PATHOLOGY [facility] - 10/21/2024 5:18 PM CDT [facility] Department of Pathology [address] [place] [address] Note to Patients: This report may contain a detailed description of human tissue sent by a health care provider to the laboratory for pathologic evaluation. The content of this report is essential for diagnosis and may provide important critical findings. This information may be unfamiliar to patients to review without a medical professional present. It is advised that the patient review this report in the presence of a health care provider who can answer questions and explain the details. Final Report Patient Name: PAIGE ANTHONY : 1975 (Age: 48) Gender: F Address: [address] [place] [address]- [facility] #: [id number] Service: UNKNOWN Location: Patient Type: [facility] SPECIMEN Taken: 10/17/2024 Received: 10/18/2024 Accessioned: 10/18/2024 Reported: 10/21/2024 Physician(s): Bernarda Echevarria M.D. Diagnosis: Vulva, left, biopsy: - Epidermoid cyst - No no evidence of malignancy Saritha Beebe M.D. Report Electronically Reviewed and Signed Out By Saritha Beebe M.D. 10/21/2024 17:18:55 Specimen(s) Received: A: Left vulvar lesion Microscopic Description: Microscopic examination is performed. Microscopic examination is performed. Clinical History: The patient is a 48-year-old woman with a vulvar lesion. Operative procedure: Left vulvar lesion biopsy. Gross Description Received in formalin, labeled with the patient s identifiers and left vulvar lesion and consists of two farias-pink, friable tissue fragments each measuring 0.3 cm. Entirely submitted. Labeled A1. Jar 0. jjmhb/10/18/2024 09:46 ALEX Hendricks, PA ([facility]) Microscopic slide review and interpretation for this case was performed at [facility], Department of Surgical Pathology, [address] [facility] [place], [place] [id number], [place] [address] CLIA # [id number] Shantell Echevarria MD LAB PATHOLOGY ORDERABLES F inal Result PATHOLOGY [facility] * eGFR (09/20/2024 7:36 AM EAR FLAP BINDER) eGFR 71 >=60 mL/min/1. 73 m2 Comment: Interpretive Data Reference Interval Normal >/= 90 mL/min/1.73m2 Mildly decreased* 60 - 89 mL/min/1.73m2 Mildly to moderately decreased 45 - 59 mL/min/1.73m2 Moderately to severely decreased 30 - 44 mL/min/1.73m2 Severely decreased 15 - 29 mL/min/1.73m2 Kidney Failure < 15 mL/min/1.73m2 *Relative to young adult level Estimated glomerular filtration rate is determined by the 2020 CKD-EPI equation recommended by the National Kid[employer] Foundation (A Unifying Approach to GFR Estimation: Recommendations of the NKF-ASK Task Force on Reassessing the Inclusion of Race in Diagnosing Kidney Disease, JASN 202). The CKD-EPI equation should not be used for patients with unstable renal function and has not been validated in children and those over 70. Current interpretive data was last reviewed 2021. Testing performed by: [facility], [address] [place] [address]., [id number] Blood 09/20/2024 7:36 AM EAR FLAP BINDER 09/20/2024 8:20 AM EAR FLAP BINDER Devonte Onofre MD LAB BLOOD ORDERABLES Sherri santoyo Result HARIS [address] [facility] Department [place] [address] * Differential, auto (09/20/2024 7:36 AM EAR FLAP BINDER) Neutrophil abs 4.4 1.5 - 6.5 K/cumm Comment:Testing performed by : [address] [address] Imm gran abs 0.0 0.0 - 0.1 K/cumm HARIS Comment:Testing performed by : [address] [address] Lymphocyte abs 1.4 0.8 - 3.3 K/cumm HARIS Comment:Testing performed by : [address] [address] Monocyte abs 0.5 0.2 - 0.8 K/cumm HARIS Comment:Testing performed by : [address] [address] Eosinophil abs 0.2 0.0 - 0.5 K/cumm HARIS Comment:Testing performed by : [address] [address] Basophil abs 0.1 0.0 - 0.1 K/cumm HARIS Comment:Testing performed by : [address] [address] Neutrophil pct 65.9 % HARIS Comment: Interpretive Data Percent cell count reference ranges are not reported, since discordance with absolute values may lead to misinterpretation of CBC data. Current Interpretive Data was last revised on 2017. Testing performed by: [address] [address] [address] Imm gran pct 0.5 % HARIS Comment: Interpretive Data Percent cell count reference ranges are not reported, since discordance with absolute values may lead to misinterpretation of CBC data. Current Interpretive Data was last revised on 2017. Testing performed by: [address] [address] Lymphocyte pct 21.5 % [facility] Comment: Interpretive Data Percent cell count reference ranges are not reported, since discordance with absolute values may lead to misinterpretation of CBC data. Current Interpretive Data was last revised on 2017. Testing performed by: [address] [address] Monocyte pct 7.7 % [facility] Comment: Interpretive Data Percent cell count reference ranges are not reported, since discordance with absolute values may lead to misinterpretation of CBC data. Current Interpretive Data was last revised on 2017. Testing performed by: [address] [address] Eosinophil pct 3.3 % [facility] Comment: Interpretive Data Percent cell count reference ranges are not reported, since discordance with absolute values may lead to misinterpretation of CBC data. Current Interpretive Data was last revised on 2017. Testing performed by: [address] [address] Basophil pct 1.1 % [facility] Comment: Interpretive Data Percent cell count reference ranges are not reported, since discordance with absolute values may lead to misinterpretation of CBC data. Current Interpretive Data was last revised on 2017. Testing performed by: [address] [address] Blood 09/20/2024 7:36 AM EAR FLAP BINDER 09/20/2024 7:36 AM EAR FLAP BINDER us Devonte Onofre MD LAB BLOOD ORDERABLES Sherri l Result HARIS [address] [facility] Department [place] [address] * Iron profile w/ IBC (09/20/2024 7:36 AM EAR FLAP BINDER) Iron TNP 35 - 145 mcg/dL Comment:Testing performed by : [address] [address] TIBC See Comment 250 - 400 HARIS MEDINA Comment: Unable to calculate Testing performed by: [address] [address] Transferrin saturation See Comment 20 - 50 [facility]IS MEDINA Comment: Unable to calculate Testing performed by: [address] [address] Blood 09/20/2024 7:36 AM EAR FLAP BINDER 09/20/2024 8:20 AM EAR FLAP BINDER us Devonte Onofre MD LAB BLOOD ORDERABLES Sherri l Result HARIS MEDINA [address] [facility] Department [place] [address] * (ABNORMAL) CBC with auto differential (09/20/2024 7:36 AM EAR FLAP BINDER) WBC 6.7 3.8 - 9.9 K/cumm Comment:Testing performed by : [address] [address] Hgb 17.4(H) 11.9 - 15.5 g/dL [facility]IS MEDINA Comment
--- OUTSIDE RECORDS SUMMARY | 2024-11-27 12:48 | XMS_ITS | Encounter Summary ---
Author Organization [facility] Healthcare Address [address] [place] [address] Care Team Providers Care Train Caller Name Role Phone Ceci Max MD Primary Care Provi sneha Encounter Details Date Type Department Care Team ([facility] st Contact Info) Description 10/21/2024 Results Follow-Up [facility] Medical Group Obstetrical Gynecology [address] [address] Shantell Echevarria MD [address] [facility] [address] [place] [address] Social History Tobacco Use Types Packs/Day Years Used Date Smoking Tobacco: Never Smokeless Tobacco: Never [facility] Utilities Answer Date Recorded In the past 12 months has [employer] electric, gas, oil, or water company threatened [...] often do you attend chur ch or synagogue services? More than 4 times per year 05/18/2023 Do you belong to any clubs o r organizations such as spiritism groups, unions, fraternal or athletic groups, or school groups? No 05/18/2023 How often do you attend meet ings of the clubs or organizations you belong to? Never 05/18/2023 Are you , , di vorced, , never , or living with a partner? 05/18/2023 AUDIT-C Answer Date Recorded Q1: How often do you have a drink containing alc ohol? Monthly or less 07/25/2024 Q2: How many drinks containi ng alcohol do you have on a typical day when you are drinking? 1 or 2 07/25/2024 Q3: How often do you have si x or more drinks on one occasion? Never 07/25/2024 Overall Financial Resource Strain (CARDIA) Answe r Date Recorded How hard is it for you to pa y for the very basics like food, housing, medical care, and heating? Not hard at all 05/18/2023 PHQ-2 Answer Date Recorded PHQ-2 Total Score (If total score is 3 or more points, staff should administer the PHQ-9) 0 07/25/2024 Hunger Vital Sign Answer Date Recorded Within [...] place to sleep or slept in a [place] [facility] [place] (including now)? No 05/18/2023 PHQ-9 Answer Date Recorded PHQ-9 Total Score 2 07/04/2024 Personal Safety Answer Date Recorded Have you [...] on filedocumented in this encounter Care Teams Train Caller Relationship Specialty Start Date End Date Ceci Max MD [facility] [address] [place] [address] PCP - General Family Medicine 03/09/22 documented as of this encounter
--- OUTSIDE RECORDS SUMMARY | 2024-11-27 12:49 | XMS_ITS ---
Author Organization 1 OF Lalito ferreira [facility] Address [address] [facility] [address] [place] [address] Care Team Providers Care Harp Repairer Name Role Phone UNKNOWN, UNKNOWN Primary Care Provider Unavailab Sarah Parker Unavailable [phone] Allergies Allergen (clinical drug ingredient) Drug/Non Drug Allergy documented on EMR Reaction Allergy Type Onset Date Status Penicillin (uncoded) Unknown Allergy Active Surgical glue (uncoded) Unknown Allergy Active REASON FOR VISIT b/l callus on bottom of feet, RT > LT in pain Medications Medication SIG (Take, Route, Fr equency, Duration) Notes Start Date End Date Status Cephalexin 500 MG Oral for 7 Days Not-Taking Ketoconazole 2 % 1 application to exp osed toenail bed Topical Once a day for 90 days 08/17/2023 Active Progesterone Active Crestor Active Vital Signs Height 68 in 03/13/2024 Weight 188 lbs 03/13/2024 BMI 28.58 kg/m2 03/13/2024 Encounters Encounter Location Date Provider Diagnosis 1 OF Lalito Silva [facility] [address] [facility] [address] [place] [address] 03/13/2024 Sarah Triana Callus of foot L84 ; Right foot pain M79.671 and Left foot pain M79.672 Assessments Encounter Date Diagnosis (ICD Code) Assessment Notes Treatment Notes Treatment Clinical Notes Section Notes 03/13/2024 Callus of foot (ICD-10 - L84) Evaluation today included a review of medical history, review of systems, discussion of exam findings, and review of diagnoses and treatment options. Recommended trimming of the hyperkeratotic lesions. I explained to the patient that the lesions will recur due to pressure. I discussed potential use of a gel corn pad on the hallux on the bottom of the foot. She was advised to wear good supportive shoes. I discussed the potential use of orthotics to help control the range of motion of her forefoot. She would like to return as needed for the lesions. 03/13/2024 Right foot pain (ICD-10 - M79.671) 03/13/2024 Left foot pain (ICD-10 - M79.672) Plan Of Treatment Treatment Notes Assessment Notes Callus of foot Evaluation today inc luded a review of medical history, review of systems, discussion of exam findings, and review of diagnoses and treatment options. Recommended trimming of the hyperkeratotic lesions. I explained to the patient that the lesions will recur due to pressure. I discussed potential use of a gel corn pad on the hallux on the bottom of the foot. She was advised to wear good supportive shoes. I discussed the potential use of orthotics to help control the range of motion of her forefoot. She would like to return as needed for the lesions. Next Appt Details Follow Up: prn, Reason: Procedure Notes * Category Sub-Category Detail Notes PALLIATIVE FOOT CARE: Callus paring: (70863) Le ss than five calluses as noted above reduced with a sterile scalpel blade Progress Notes * Karrie READOB: 7 (48 yo F)Acc No.[id number]:03/13/2024 Progress Notes Patient: Karrie LIN Provider: Jay Triana DPM :1975 A ge:48 Y S ex:Female Date:03/13/2024 Address:[address] [place] [address] Pcp:UNKNOWN UNKNOWN Subjective: * Chief Complaints: * b /l callus on bottom of feet, RT > LT in pain * HPI: M A assisting with visit:: HPI/Rooming: Ryan. Drew reason for visit:: New Problem: [age] year old female PTO with chief complaint of calluses on both feet, for an extended period of time. She states they're painful when she walks.. * ROS: * MULTI-SYSTEM REVIEW:: Nausea, fever or chillls d enies. A ny change in medications since last visit? d enies. A ny changes in medical history/hospitalizations? d enies. * Medical History: * Medications: T akingProgesterone Crestor Ketoconazole 2 % Cream 1 application to exposed toenail bed Topical Once a day Taking Progesterone Taking Crestor Taking Ketoconazole 2 % Cream 1 application to exposed toenail bed Topical Once a day Not-Taking/PRNCephalexin 500 MG Capsule Oral Not-Taking/PRN Cephalexin 500 MG Capsule Oral DiscontinuedCiclopirox 8 % Solution 1 application to affected toenails daily. Every weekend, remove medicine with nail english remover. Topical Once a day Medication List reviewed and reconciled with the patientDiscontinued Ciclopirox 8 % Solution 1 application to affected toenails daily. Every weekend, remove medicine with nail english remover. Topical Once a day Medication List reviewed and reconciled with the [...] with appropriate response to questions. Shoes today: t chary shoe. Exam unchanged from prior visit: w ith no significant changes in appearance or condition of feet, excluding the following findings noted on exam today: Pulses are palpable. No significant edema noted bilaterally. Hyperkeratotic lesions noted on the bilateral medial hallux IPJ and left sub 5th MTH. Pain with palpation of the hyperkeratotic lesions.. Assessment: * Assessment: 1. C allus of foot - L84 (Primary) 2 . R ight foot pain - M79.671 3 . L eft foot pain - M79.672 Plan: * Treatment: * Procedures: P ALLIATIVE FOOT CARE:: Callus paring: ( [address]) Less than five calluses as noted above reduced with a sterile scalpel blade. * Procedure Codes: 1 1056 TRIM SKIN LESIONS, 2 TO 4 * Follow Up: p rn * Images: * Sign off status: Completed true * Provider: Jay Triana DPM Date: 0 03/13/2024 Generated for Raghu marie/Monster/Suzi on: 0 11/27/2024 12:47 PM CDT History and Physical Notes * HPI (History of Present Illness) Category Sub-Category Detail Notes Category Not es Primary reason for visit: New Problem: 48 yea r old female PTO with chief complaint of calluses on both feet, for an extended period of time. She states they're painful when she walks. MA assisting with visit: HPI/Rooming: Devonte Examination Category Sub-Category Detail Notes Category Not es General Examination Mental status: Cooperative, Oriented to person, place and time, Mood and affect: normal, Judgement and intellect: normal with appropriate response to questions Shoes today: tennis shoe Exam unchanged from prior visit: with no significant changes in appearance or condition of feet, excluding the following findings noted on exam today: Pulses are palpable. No significant edema noted bilaterally. Hyperkeratotic lesions noted on the bilateral medial hallux IPJ and left sub 5th MTH. Pain with palpation of the hyperkeratotic lesions. Constitutional / Appearance: No acute di stress , Well nourished, Appropriate personal hygiene
--- OUTSIDE RECORDS SUMMARY | 2024-11-27 12:49 | XMS_ITS | Patient Health Record ---
Author Organization 1 OF Lalito ferreira [facility] Address [address] [address] Care Team Providers Care Smoking Tobacco Packer Hand Name Role Phone UNKNOWN, UNKNOWN Primary Care Provider Unavailab Sarah Parker Unavailable [phone] Allergies Allergen (clinical drug ingredient) Drug/Non Drug Allergy documented on EMR Reaction Allergy Type Onset Date Status Penicillin (uncoded) Unknown Allergy Active Surgical glue (uncoded) Unknown Allergy Active Reason For Referral No Information Medications Medication SIG (Take, Route, Fr equency, Duration) Notes Start Date End Date Status Cephalexin 500 MG Oral for 7 Days Not-Taking Ketoconazole 2 % 1 application to exp osed toenail bed Topical Once a day for 90 days 08/17/2023 Active Progesterone Active Crestor Active Social History Tobacco Use: Social History Observation Description Date Details (start date - stop date) Never Smoker NA - NA Tobacco Control (Standard) Question Answer Notes Tobacco use: Nonsmoker Vital Signs Height 68 in 03/13/2024 Weight 188 lbs 03/13/2024 BMI 28.58 kg/m2 03/13/2024 Encounters Encounter Location Date Provider Diagnosis 1 OF Lalito Silva [facility] [address] [address] 03/13/2024 Sarah Kong Callus of foot L84 ; Right foot [...] pain (ICD-10 - M79.672) Plan Of Treatment No Information Insurance Providers Payer Name Payer Address Payer Phone Subscriber Number Group Number Insured Name Patient Relationship to Insured Coverage Start Date Coverage End Date [facility] Claims [address] [place] [address] [id number] Karrie Rea Self - patient is the insured Medical (General) History Medical History History ICD Code Anxiety disorder, Arthritis, Depression ,High cholesterol, Kidney stones Surgical History Surgery Date(Month/Year) B/L ingrown toenail removals 2013
--- OUTSIDE RECORDS SUMMARY | 2024-11-27 12:49 | XMS_ITS | Encounter Summary ---
Author Organization [facility] Healthcare Address [address] [place] [address] Care Team Providers Care Parachute Cushion Installer Name Role Phone Ceci Max MD Primary Care Provi sneha Encounter Details Date Type Department Care Team (Late st Contact Info) Description 12/08/2023 Telephone [facility] Medical Group Family Medicine [address] [address] Ceci Max MD [address] [address] Social History Tobacco Use Types Packs/Day Years Used Date Smoking Tobacco: Never Smokeless Tobacco: Never [facility] Utilities Answer Date Recorded In the past 12 months has [employer] electric, gas, oil, or water company threatened [...] often do you attend chur ch or presybeterian services? More than 4 times per year 05/18/2023 Do you belong to any clubs o r organizations such as presybeterian groups, unions, fraternal or athletic groups, or school groups? No 05/18/2023 How often do you attend meet ings of the clubs or organizations you belong to? Never 05/18/2023 Are you , , di vorced, , never , or living with a partner? 05/18/2023 AUDIT-C Answer Date Recorded Q1: How often do you have a drink containing alc ohol? Monthly or less 12/07/2023 Q2: How many drinks containi ng alcohol do you have on a typical day when you are drinking? 1 or 2 12/07/2023 Q3: How often do you have si x or more drinks on one occasion? Never 12/07/2023 Overall Financial Resource Strain (CARDIA) Answe r Date Recorded How hard is it for you to pa y for the very basics like food, housing, medical care, and heating? Not hard at all 05/18/2023 PHQ-2 Answer Date Recorded PHQ-2 Total Score (If total score is 3 or more points, staff should administer the PHQ-9) 0 12/07/2023 Hunger Vital Sign Answer Date Recorded Within the past 12 months, y ou worried that your food would run out before you got the money to buy more. Never true 05/18/20 Within the past 12 months, t he [...] place to sleep or slept in a [facility] (including now)? No 05/18/2023 Personal Safety Answer Date Recorded Have you ever been in or are you currently in a harmful physical or emotional relationship or is someone making you feel afraid or unsafe? Denies 05/26/2023 Comments No Sex and Gender Information Value Date Recorded Sex Assigned at Not on file Legal Sex Female 12:32 PM CDT Gender Identity Not on file Sexual Orientation Not on file documented as of this encounter Plan of Treatment Not on file documented as of this encounter Visit Diagnoses Not on filedocumented in this encounter Care Teams Parachute Cushion Installer Relationship Specialty Start Date End Date Ceci Max MD [address] [place] [address] PCP - General Family Medicine 03/09/22 documented as of this encounter
--- OUTSIDE RECORDS SUMMARY | 2024-11-27 12:49 | XMS_ITS ---
Author Organization 1 OF Lalito ferreira [facility] Address [address] [place] [address] Care Team Providers Care Certified Coding Specialist Name Role Phone UNKNOWN, UNKNOWN Primary Care Provider Unavailab Sarah Parker Unavailable [phone] Allergies Allergen (clinical drug ingredient) Drug/Non Drug Allergy documented on EMR Reaction Allergy Type Onset Date Status Penicillin (uncoded) Unknown Allergy Active Surgical glue (uncoded) Unknown Allergy Active REASON FOR VISIT TA & T5 hurting Medications Medication SIG (Take, Route, Fr equency, Duration) Notes Start Date End Date Status Crestor Active Ketoconazole 2 % 1 application to exp osed toenail bed Topical Once a day for 90 days 08/17/2023 Active Ciclopirox 8 % 1 application to aff ected toenails daily. Every weekend, remove medicine with nail mosotho remover. Topical Once a day for 120 days 08/17/2023 Active Cephalexin 500 MG Oral for 7 Days Not-Taking Progesterone Active Social History Tobacco Use: Social History Observation Description Date Details (start date - stop date) Never Smoker NA - NA Tobacco Control (Standard) Question Answer Notes Tobacco use: Nonsmoker Vital Signs Height 68 in 08/17/2023 Weight 186 lbs 08/17/2023 BMI 28.28 kg/m2 08/17/2023 Encounters Encounter Location Date Provider Diagnosis 1 OF Lalito Silva [facility] [address] [place] [address] 08/17/2023 Sarah Triana Ingrowing nail L60.0 ; Dermatophytosis of nail B35.1 ; Toe pain, right M79.674 and Pain around toenail, left foot M79.675 Assessments Encounter Date Diagnosis (ICD Code) Assessment Notes Treatment Notes Treatment Clinical Notes Section Notes 08/17/2023 Ingrowing nail (ICD-10 - L60.0) Discussed ingrown toenail condition and explained in detail conservative and surgical options of care including debridement / slant back procedure vs nail avulsion vs matrixectomy. Discussed pros and cons of each procedure including temporary relief vs more permanent relief with matrixectomy procedure but longer healing time. Patient elected to proceed with avulsion procedure of the medial and lateral borders of the right hallux nail. Consent was obtained. Post-care instructions were given. She was advised to call with any issues to the toenail. 08/17/2023 Dermatophytosis of nail (ICD-10 - B35.1) Patient visit today included a review of medical history, review of systems, physical exam and discussion of exam findings, and discussion of diagnoses and treatment options. Discussed diagnosis of onychomycosis versus onychogryphosis. Treatment options including topical and/or oral medications vs not treating the infection at all were discussed. Advised fungus is contagious and can spread to other nails or family members. I explained to the patient that the changes to her nail may be secondary to trauma. The patient was informed that topical treatments can be effective for mild cases. I discussed treatment with oral antifungal medication including potential risks and side effects associated with the medication. Advised treatment with oral anti-fungal medication requires a blood test to insure no pre-existing liver or kidney condition exists. Patient was advised it may take 4-6 months before significant visible improvement is apparent and 12-18 months of the medication may be necessary to resolve the infection. The patient was advised no guarantee with any treatment. All questions were answered and the patient prefers to try treatment with topical antifungal treatment. I recommended Ciclopirox, applied daily for at least 3-4 months to the toenail plate and ketoconazole cream applied to the toenail bed. Advised 12-18 months may be necessary for complete resolution if it seems to be working. All questions and concerns addressed. 08/17/2023 Toe pain, right (ICD-10 - M79.674) 08/17/2023 Pain around toenail, left foot (ICD-10 - M79.675) Plan Of Treatment Medication Medication Name Sig Start Date Stop Date Notes Ketoconazole 2 % 1 application to exp osed toenail bed Topical Once a day for 90 days 08/17/2023 Ciclopirox 8 % 1 application to aff ected toenails daily. Every weekend, remove medicine with nail mosotho remover. Topical Once a day for 120 days 08/17/2023 Treatment Notes Assessment Notes Ingrowing nail Discussed ingrown toenail condition and explained in detail conservative and surgical options of care including debridement / slant back procedure vs nail avulsion vs matrixectomy. Discussed pros and cons of each procedure including temporary relief vs more permanent relief with matrixectomy procedure but longer healing time. Patient elected to proceed with avulsion procedure of the medial and lateral borders of the right hallux nail. Consent was obtained. Post-care instructions were given. She was advised to call with any issues to the toenail. Dermatophytosis of nail Patient visit to day included a review of medical history, review of systems, physical exam and discussion of exam findings, and discussion of diagnoses and treatment options. Discussed diagnosis of onychomycosis versus onychogryphosis. Treatment options including topical and/or oral medications vs not treating the infection at all were discussed. Advised fungus is contagious and can spread to other nails or family members. I explained to the patient that the changes to her nail may be secondary to trauma. The patient was informed that topical treatments can be effective for mild cases. I discussed treatment with oral antifungal medication including potential risks and side effects associated with the medication. Advised treatment with oral anti-fungal medication requires a blood test to insure no pre-existing liver or kidney condition exists. Patient was advised it may take 4-6 months before significant visible improvement is apparent and 12-18 months of the medication may be necessary to resolve the infection. The patient was advised no guarantee with any treatment. All questions were answered and the patient prefers to try treatment with topical antifungal treatment. I recommended Ciclopirox, applied daily for at least 3-4 months to the toenail plate and ketoconazole cream applied to the toenail bed. Advised 12-18 months may be necessary for complete resolution if it seems to be working. All questions and concerns addressed. Next Appt Details Follow Up: 3 Months,prn, Marcia son: Procedure Notes * Category Sub-Category Detail Notes NAIL PROCEDURES: Nail avulsion (79320): Discusse d procedure and associated recovery period as well as potential risks and complications including, but not limited to recurrence of ingrown toenail, infection, worsening of condition, loss of entire toenail, loss of digit. Advised potential need for resection hypertrophic periungual tissue to help prevent recurrence of the condition. No guarantees were given. Patient agreed to proceed with procedure consisting of: partial nail avulsion of medial and lateral nail plate of T5. Consent form reviewed and signed by patient. Local anesthesia obtained with 4 cc 1% lidocaine plain and 1 cc 0.5% marcaine plain. Aseptic prep of the toe performed with betadine and following confirmation of anesthesia, Avulsion procedure performed utilizing sterile instrumentation and atraumatic technique with resection of any hypertrophic granulation tissue as necessary. The wound was then irrigated with betadine. Bacitracin ointment and DSD was applied to the wound and post-op instructions were dispensed and discussed. STERILE TRAY & INSTRUMENTS Utilization o f sterile tray and instrumentation along with aseptic technique. (A4550) PALLIATIVE FOOT CARE: Nail debride (67852): Debr idement of five or less mycotic and/or hypertrophic nails, utilizing manual and electric debridement the affected nails were reduced the nails in length and thickness with curettage of debris from nail margins performed as needed. Nail thickness reduced by:, 50% Progress Notes * Karrie READOB: [birth year] (47 yo F)Acc No.[id number]:08/17/2023 Progress Notes Patient: Karrie LIN Provider: Jay Triana DPM :1975 A ge:47 Y S ex:Female Date:08/17/2023 Address:[address] [place] [address] Pcp:UNKNOWN UNKNOWN Subjective: * Chief Complaints: * T A & T5 hurting * HPI: M A assisting with visit:: HPI/Rooming: Jagjit mullen reason for visit:: New Patient Evaluation: [age] year old female, referred by DAVID Guy with chief complaint of issues with her B/L hallux nails, of several months duration. Pt reports the RT hallux nail is bruised and sore to touch, and the LT hallux nail is yellow and disfigured. She reports it has been yellow for years, but in the last few months the nail has gotten thick and ridged. Pt reports that the condition had gradual onset, and the bruised nail is related to injury. Pt rates her pain as a 6/10 and states it is a dull,aching pain that is constant. Pt reports that wearing socks and prolonged/standing walking worsens the pain, and not wearing shoes/socks improves the condition, as well as getting off of the feet. Pt has tried antifungal capsules as a tx for the condition, which was taken for 1 week, 2x dailly. She reports they were not effective. P t denies smashing the nail but admits that the bruising has been present for a few weeks when she had nail mosotho removed a few weeks ago, prior to that she could not see the nails. She admits repetitive trauma when she kicks the toe against her Med cart at work. . * ROS: G ENERAL: NAUSEA, FEVER OR CHILLS d enies, d enies. U NEXPLAINED LOSS OR GAIN OF WEIGHT d enies. U NEXPLAINED FATIGUE OR LACK OF ENERGY d enies. R ECENT FALL d enies. P ERIPHERAL VASCULAR: FATIGUE IN CALF MUSCLE WHILE WALKING d enies. P AIN, SWELLING OR FEELING OF TIGHTNESS IN LEG d enies. F REQUENT OR CHRONIC SWELLING OF LEGS d enies. T OES TURN BLUE, WHITE, PAINFUL WITH COLD TEMPERATURE d enies. N EUROLOGICAL: DIZZINESS, LIGHT HEADED OR FAINTING d enies. W EAKNESS OR PARALYSIS d enies. D IFFICULTY WITH BALANCE d enies. P ERIPHERAL NEUROLOGICAL: BURNING, TINGLING, STINGING SENSATION OF FEET d enies. N UMBNESS OF FOOT / FEET d enies. W EAKNESS OF FOOT / FEET d enies. G ASTROINTESTINAL: ABDOMINAL PAIN d enies. B LOODY STOOL d enies. F REQUENT HEARTBURN d enies. F REQUENT NAUSEA OR VOMITING d enies. S KIN: EXCESSIVE SWEATING OF FEET / HANDS d enies. C HRONIC OR RECURRENT SKIN RASH d enies. N ONHEALING SKIN LESIONS d enies. T ENDENCY TO FORM THICK SCARS (KELOIDS) d enies. M USCULOSKELETAL: LOW BACK PAIN d enies. H IP PAIN d enies. K NEE PAIN d enies. S WELLING / STIFFNESS JOINTS OF HANDS / FEET d enies. E NDOCRINE: DELAYED HEALING OF WOUNDS d enies. I NTOLERANCE TO HEAT OR COLD d enies. E XCESSIVE THIRST d enies. F REQUENT URINATION d enies. H EMATOLOGY/ONCOLOGY: ANEMIA d enies. B LEED or BRUISE EASILY d enies. ANTI-COAGULANT USE d enies. * Medical History: * Surgical History: B /L ingrown toenail removals 2013 * Hospitalization/Major Diagno stic Procedure: * Family History: Stroke. * Social History: T obacco Use: T obacco Control (Standard) T obacco use: N onsmoker D rugs/Alcohol: A lcohol use: Social alcohol use. Recreational drugs: Denies All. M iscellaneous: E xercise: Active. 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 * Medications: T akingProgesterone Crestor Taking Progesterone Taking Crestor Not-Taking/PRNCephalexin 500 MG Capsule Oral Not-Taking/PRN Cephalexin 500 MG Capsule Oral DiscontinuedCephalexin 500 MG Capsule Oral Medication List reviewed and reconciled with the patientDiscontinued Cephalexin 500 MG Capsule Oral Medication List reviewed and reconciled with the patient * Allergies: P enicillinSurgical glueno[Allergies Verified] Objective: * Vitals: W t:186lbs, Wt-k.37 kg, Ht: 68 in, BMI:28.28Index. * Examination: G eneral Examination: Constitutional / Appearance: N o acute distress , Well nourished, Appropriate personal hygiene. Mental status: C ooperative, Oriented to person, place and time, Mood and affect: normal, Judgement and intellect: normal with appropriate response to questions. Shoes today: T chary shoes. L ower Extremity VASCULAR: : Pulses: D P and PT pulses, palpable, bilateral. Temperature gradient: w arm from proximal to distal, bilateral. Pedal hair: p resent, bilateral. Capillary refill at distal toes less than 3 seconds, bilateral. L ower Extremity DERM: : Skin: w ell hydrated , no suspicious lesions, without interdigital maceration, bilateral. Nails: T he right hallux nail is very painful to the touch. The medial and lateral borders of the nail are incurvated. Some mild edema and erythema noted. No purulence noted. The left hallux nail is hypertrophic and elongated. Nail plate is thickened, with yellowish discoloration and subungual debris. Some pain with palpation.. L ower Extremity MSK: : Gait G ait unremarkable with normal posture, propulsion and balance. Left lower extremity inspection and palpation: N o palpable masses or nodules noted.. Right lower extremity inspection and palpation: N o palpable masses or nodules noted. . L ower Extremity NEURO: : General sensation appears intact, bilateral. Muscle tone within normal limits, bilateral. Assessment: * Assessment: 1. I ngrowing nail - L60.0 (Primary) 2 . D ermatophytosis of nail - B35.1 3 . T oe pain, right - M79.674 4 . P ain around toenail, left foot - M79.675 Plan: * Treatment: 2. D ermatophytosis of nail Start Ketoconazole Cream, 2 %, 1 application to exposed toenail bed, Topical, Once a day, 90 days, 60 grams, Refills 1; S tart Ciclopirox Solution, 8 %, 1 application to affected toenails daily. Every weekend, remove medicine with nail mosotho remover., Topical, Once a day, 120 days, 1 Bottle, Refills 3. Notes: Patient visit today included a review of medical history, review of systems, physical exam and discussion of exam findings, and discussion of diagnoses and treatment options. Discussed diagnosis of onychomycosis versus onychogryphosis. Treatment options including topical and/or oral medications vs not treating the infection at all were discussed. Advised fungus is contagious and can spread to other nails or family members. I explained to the patient that the changes to her nail may be secondary to trauma. The patient was informed that topical treatments can be effective for mild cases. I discussed treatment with oral antifungal medication including potential risks and side effects associated with the medication. Advised treatment with oral anti-fungal medication requires a blood test to insure no pre-existing liver or kidney condition exists. Patient was advised it may take 4-6 months before significant visible improvement is apparent and 12-18 months of the medication may be necessary to resolve the infection. The patient was advised no guarantee with any treatment. All questions were answered and the patient prefers to try treatment with topical antifungal treatment. I recommended Ciclopirox, applied daily for at least 3-4 months to the toenail plate and ketoconazole cream applied to the toenail bed. Advised 12-18 months may be necessary for complete resolution if it seems to be working. All questions and concerns addressed. * Procedures: N AIL PROCEDURES:: Nail avulsion (05382): D iscussed procedure and associated recovery period as well as potential risks and complications including, but not limited to recurrence of ingrown toenail, infection, worsening of condition, loss of entire toenail, loss of digit. Advised potential need for resection hypertrophic periungual tissue to help prevent recurrence of the condition. No guarantees were given. Patient agreed to proceed with procedure consisting of: partial nail avulsion of medial and lateral nail plate of T5. Consent form reviewed and signed by patient. Local anesthesia obtained with 4 cc 1% lidocaine plain and 1 cc 0.5% marcaine plain. Aseptic prep of the toe performed with betadine and following confirmation of anesthesia, Avulsion procedure performed utilizing sterile instrumentation and atraumatic technique with resection of any hypertrophic granulation tissue as necessary. The wound was then irrigated with betadine. Bacitracin ointment and DSD was applied to the wound and post-op instructions were dispensed and discussed.. STERILE TRAY & INSTRUMENTS U tilization of sterile tray and instrumentation along with aseptic technique. (A4550). P ALLIATIVE FOOT CARE:: Nail debride (96410): D ebridement of five or less mycotic and/or hypertrophic nails, utilizing manual and electric debridement the affected nails were reduced the nails in length and thickness with curettage of debris from nail margins performed as needed. Nail thickness reduced by:, 50%. 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 Pt reports the RT hallux nail is bruised and sore to touch, and the LT hallux nail is yellow and disfigured. She reports it has been yellow for years, but in the last few months the nail has gotten thick and ridged. Pt reports that the condition had gradual onset, and the bruised nail is related to injury. Pt rates her pain as a 6/10 and states it is a dull,aching pain that is constant. Pt reports that wearing socks and prolonged/standing walking worsens the pain, and not wearing shoes/socks improves the condition, as well as getting off of the feet. Pt has tried antifungal capsules as a tx for the condition, which was taken for 1 week, 2x dailly. She reports they were not effective. Pt denies smashing the nail but admits that the bruising has been present for a few weeks when she had nail mosotho removed a few weeks ago, prior to that she could not see the nails. She admits repetitive trauma when she kicks the toe against her Med cart at work. MA assisting with visit: HPI/Rooming: Jenn Examination Category Sub-Category Detail Notes Category Not es General Examination Mental status: Cooperative, Oriented to person, place and time, Mood and affect: normal, Judgement and intellect: normal with appropriate response to questions Shoes today: Tennis shoes Constitutional / Appearance: No acute di stress , Well nourished, Appropriate personal hygiene Lower Extremity VASCULAR: Pulses: DP and PT pulse s, palpable, bilateral Temperature gradient: warm from proximal to distal, bilateral Pedal hair: present, bilateral Capillary refill at distal toes less jose alberto n 3 seconds, bilateral Lower Extremity NEURO: General sensation appears intac t, bilateral Muscle tone within normal limits , bilateral Lower Extremity MSK: Left lower extremit y inspection and palpation: No palpable masses or nodules noted. Right lower extremity inspec tion and palpation: No palpable masses or nodules noted. Gait Gait unremarkable wi th normal posture, propulsion and balance Lower Extremity DERM: Skin: well hydra silvestre , no suspicious lesions, without interdigital maceration, bilateral Nails: The right hallux lauryn l is very painful to the touch. The medial and lateral borders of the nail are incurvated. Some mild edema and erythema noted. No purulence noted. The left hallux nail is hypertrophic and elongated. Nail plate is thickened, with yellowish discoloration and subungual debris. Some pain with palpation.
[2024-11-27 14:23] LABS: Hematocrit 48.3 % (37.0-47.0); Hemoglobin 15.6 g/dL (12.0-15.0); Mean Corpuscular HGB Conc 32.3 g/dl (32-36); Mean Corpuscular Hemoglobin 29.7 pg (26-34); Mean Platelet Volume 9.4 fl (7.4-10.4); Platelet Count Result 179 k/mm3 (150-375); Red Blood Count 5.25 M/mm3 (4.2-5.4); Red Cell Distribution Width 12.5 % (11.5-14.5); White Blood Count 5.3 K/mm3 (4.5-10.0)
[2024-11-27 16:59] LABS: Prealbumin 29.8 mg/dL (17.6-36.0)
[2024-11-27 17:05] LABS: Iron 81 ug/dL (37-170)
[2024-11-27 17:23] LABS: Albumin Level 4.3 g/dL (3.5-5.1); Anion Gap 5 mmol/L (4-12); Blood Urea Nitrogen 8 mg/dL (7-17); Calcium 9.7 mg/dL (8.4-10.2); Carbon Dioxide 28 mmol/L (22-30); Chloride 104 mmol/L (98-107); Estimated Glomerular Filt Rate > 60; Glucose 84 mg/dL (65-110); Potassium 4.4 mmol/L (3.4-5.0); Sodium 137 mmol/L (137-145)
[2024-11-27 17:33] LABS: Hemoglobin A1C 4.8 % (<5.7)
[2024-12-02 10:24] LABS: Vitamin B1 9 nmol/L (8-30)
== END 2024-11-27 12:41 | disposition home or self-care (01) ==
LOC: ANHLAB 12:43
PROVIDERS: PCP Family Medicine; Visit Provider Surgery Plastic and Reconstructive Surgery
DX: R63.4 Abnormal weight loss (principal)
CPT/HCPCS: 36415; 80048; 82040; 83036; 83540; 84134; 84425; 85027

== ENCOUNTER 2024-12-12 09:25 | Outpatient (CLI) | payer OTHER, SELFPAY ==
--- OUTSIDE RECORDS SUMMARY | 2024-12-12 09:33 | XMS_ITS | Encounter Summary ---
Author Organization [facility] Healthcare Address [address] [place] [address] Care Team Providers Care Signal Supervisor Name Role Phone Ceci Max MD Primary Care Provi sneha Reason for Referral * Consultation (Routine) - Pending Review Specialty Diagnoses / Procedures Referred By Contac t Referred To Contact Neurology Diagnoses Right leg paresthesias Debbie Patel PA [address] [place] [address] Phone: tel: fax: [facility] Medical [facility] [address] [address] Phone: tel: fax: Referral ID Status Reason Start Date Expiration Date Visits Requested Visits Authorized [id number] Pending Review Specialty Services Required 11/29/2024 12/29/2025 6 6 Question Answer Please select the performing region: [facility] [[id number]] Please select the performing department: [facility] NEURO BLVLE [id number] [[id number]] # of visits: 6 Encounter Details Date Type Department Care Team (Late st Contact Info) Description 11/25/2024 Results Follow-Up [facility] Family Medicine [address] [id number] Debbie Patel PA [address] [place], [place] [id number] XR Spine Lumbar 2 Or 3 Vw Social History Tobacco Use Types Packs/Day Years Used Date Smoking Tobacco: Never Smokeless Tobacco: Never [facility] Utilities Answer Date Recorded In the [...] often do you attend chur ch or yazidi services? More than 4 times per year 05/18/2023 Do you belong to any clubs o r organizations such as anabaptism groups, unions, fraternal or athletic groups, or [...] place to sleep or slept in a care home (including now)? No 05/18/2023 PHQ-9 Answer Date [...] on file documented as of this encounter Miscellaneous Notes * Result Encounter Note - Fernanda Rashid - 11/29/2024 11:23 AM CDT Noted * Telephone Encounter - Priyank Cullen LPN - 11/29/2024 11:21 AM CDT Pt informed, voiced understanding, referral placed. * Telephone Encounter - Priyank Cullen LPN - 11/29/2024 11:19 AM CDT ----- Message from CHLOE Burden sent at 11/29/2024 8:17 AM CDT ----- Please notify patient of unread MyChart results. documented in this encounter Plan of Treatment Scheduled Referrals Name Type Priority Associated Diagnoses Orde r Schedule Ambulatory referral to Neurology Outpatient Referral Routine Right leg paresthesias Expected: 12/13/2024 (Approximate), Expires: 11/29/2025 documented as of this encounter Visit Diagnoses Diagnosis Right leg paresthesias- Primary Disturbance of skin sensation documented in this encounter Care Teams Signal Supervisor Relationship Specialty Start Date End Date Ceci Max MD [facility] [address] [place] [id number] PCP - General Family Medicine 03/09/22 documented as of this encounter
--- NOTE | 2024-12-12 09:34 | ECG_ITS ---
Test Date: 2024-12-12 09:47:08 Measurements Intervals [place] Rate: 66 P: 38 DE: 153 QRS: 8 QRSD: 89 T: 29 QT: 362 QTc: 382 Interpretive Statements SINUS RHYTHM POSSIBLE LEFT ATRIAL ENLARGEMENT [-0.1mV P WAVE IN V1/V2] LOW QRS VOLTAGE IN PRECORDIAL LEADS [QRS DEFLECTION < 1.0 mV IN CHEST LEADS] No previous ECG available for comparison Electronically Signed On 12-13-2024 11:01:53 CDT by Red Ferrer M.D.
--- OUTSIDE RECORDS SUMMARY | 2024-12-12 09:34 | XMS_ITS | Referral Summary ---
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 Name Role Phone Ceci Max MD Primary Care Provi sneha Encounters Date Type Department Care Team Description 12/01/[address] [phone] Debbie Patel PA 11/25/2024 Results Follow-Up [address] [phone] Debbie Patel PA XR Spine Lumbar 2 Or 3 Vw 11/21/2024 9:10 AM CDT - 11/21/2024 11:59 PM CDT Hospital Encounter [facility] [address] [place] [address] Right leg paresthesias Discharge Disposition: Discharge to home or self care 11/19/2024 3:00 PM CDT Office Visit [address] [phone] Debbie Patel PA Right leg paresthesias (Primary Dx); Chronic bilateral low back pain, unspecified whether sciatica present; Overweight (BMI 25.0-29.9) 11/01/2024 7:45 AM CDT Office Visit [address] [address] Ceci Max MD Vulvar lesion (Primary Dx); Pain of left calf; Overweight (BMI 25.0-29.9); History of obesity; Degenerative disc disease, thoracic 10/21/2024 Results Follow-Up [facility] [address] [facility] [address] [place] [address] Shantell Echevarria MD Surgical pathology 10/17/2024 5:33 PM CDT - 10/17/2024 11:59 PM CDT Hospital Encounter [facility] [address] [place] [address] Vulvar lesion Discharge Disposition: Discharge to home or self care 10/17/2024 3:30 PM CDT Office Visit [facility] [address] [facility] [address] [place] [address] Shantell Echevarria MD Inclusion cyst of vulva (Primary Dx); Vulvar lesion 09/20/2024 Results Follow-Up [facility] [address] [phone] Ceci Max MD Lipid panel 09/20/2024 7:35 AM LATH TIER Lab [facility] [address] [place] [address] 09/20/2024 7:20 AM LATH TIER Lab [facility] [address] [place] [address] Screening, lipid from Last 3 Months Allergies Active Allergy Reactions Criticality Noted Date Comments Other Rash High 05/26/2023 Surgical glue Swelling and rash Penicillin G Hives High 04/01/2022 Tissue Adhesive Rash Medium 04/09/2024 Medications PreviDent 5000 Booster Plus 1.1 % paste daily 04/18/20 22 Active polyethylene glycol (MIRALAX) 17 gram/dose bulk powder Take 17 g by mouth as needed PRN Active ibuprofen 200 mg tab/cap Take 3 tablet/capsu le (600 mg total) by mouth every 6 (six) hours as needed for pain PRN Active progesterone (PROMETRIUM) 200 mg capsule Take 1 capsule (200 mg total) by mouth nightly 04/09/20 23 Active testosterone enanthate 100 mg/0.5 mL auto-injector Inject 150 mg under the skin Every 3 months Active estradioL 12.5 mg pellet by implant route Every 3 months Active acetaminophen (TYLENOL) 500 mg tablet Take 2 tablets (1,000 mg total) by mouth every 6 (six) hours as needed for pain 30 tablet 07/24/19 25 Active tirzepatide, weight loss, (Zepbound) 5 mg/0.5 mL pen injectorIndicat ions:Class 1 obesity without serious comorbidity with body mass index (BMI) of 30.0 to 30.9 in adult, unspecified obesity type INJECT 5MG UNDER THE SKIN ONCE WEEKLY 6 mL 1 08/26/19 25 Active rosuvastatin (CRESTOR) 40 mg tablet TAKE 1 TABLET(40 MG) BY MOUTH DAILY 100 tablet 1 09/19/19 25 Active cyclobenzaprine (FLEXERIL) 10 mg tabletIndicatio ns:Degenerative disc disease, thoracic Take 1 tablet (10 mg total) by mouth 2 (two) times a day as needed for muscle spasms 20 tablet 2 11/02/19 25 Active meloxicam (MOBIC) 15 mg tablet TAKE 1 TABLET(15 MG) BY MOUTH DAILY 30 tablet 2 11/13/19 25 Active ondansetron (ZOFRAN) 4 mg tablet TAKE 1 TABLET(4 MG) BY MOUTH EVERY 6 HOURS NEEDED FOR NAUSEA OR VOMITING 12 tablet 11/30/19 25 Active ondansetron (ZOFRAN) 4 mg tablet Take 1 tablet (4 mg total) by mouth every 6 (six) hours as needed for nausea or vomiting 12 tablet 12/07/19 24 025 Discontinued mupirocin (BACTROBAN) 2 % ointment Apply twice daily for 7 days to inside of nose. 22 g 07/04/20 24 025 Discontinued( erapy completed) meloxicam (MOBIC) 15 mg tablet Take 1 tablet (15 mg total) by mouth daily 30 tablet 2 08/14/19 25 025 Discontinued(Re order) Active Problems Problem Noted Date Diagnosed Date [...] spasms Assessment & Plan (07/04/2024 7:48 AM LATH TIER): Chronic. Stable. Continue to follow with chiropractor, massage and process trainer. Hypercalciuria 12/07/2023 Assessment & Plan (07/04/2024 7:49 AM LATH TIER): Chronic. Continue to follow with Nephrology. Maintain [...] 05/11/2023 Assessment & Plan (07/04/2024 7:49 AM LATH TIER): No stone passage since 2022. Monitor Assessment & Plan (06/02/2023 11:19 AM LATH TIER): Acute, but will be chronic Managed by [...] (10/24/2022): Added automatically from request for surgery [id number] Overweight (BMI 25.0-29.9) 08/09/2022 Assessment & Plan (11/19/2024 4:12 PM CDT): Assessment & Plan (11/01/2024 8:09 AM CDT): Chronic, stable BMI Follow-up includes: education provided. Assessment & Plan (07/04/2024 7:49 AM LATH TIER): Down 10 lbs with Zepbound. BMI 29. Continue [place] bound 5 mg, no further increase at this time. Assessment & Plan (12/07/2023 11:35 AM CDT): BMI Follow-up includes: education provided. Assessment & Plan (06/02/2023 1:07 PM LATH TIER): Chronic, stable BMI Follow-up includes: nutrition counseling. Abnormal weight gain 08/09/2022 Assessment & Plan (06/02/2023 11:18 AM LATH TIER): Chronic, stable We reviewed her insurance and medications We discussed healthy habits, and options for weight loss Given she is overweight, encouraged to continue healthy changes Call for questions Mixed hyperlipidemia 04/12/2022 Assessment & Plan (07/04/2024 7:49 AM LATH TIER): Chronic. Stable. Continue rosuvastatin Assessment & Plan (05/17/2023 8:45 PM CDT): Continue statin Check thyroid function and lipid profile Assessment & Plan (04/12/2022 9:41 AM CDT): Chronic, stable Continue crestor Labs ordered Update me with any changes or concerns Postmenopausal 04/12/2022 Assessment & Plan (07/04/2024 7:50 AM LATH TIER): Status total hysterectomy. Continue to follow with [...] yearly Assessment & Plan (07/04/2024 7:50 AM LATH TIER): PMH: 07/04/24 Last pap: s/p total hysterectomy [...] Tobacco: Never Tobacco Cessation:Counseling Given: Not Answered [facility] Utilities Answer Date Recorded In the past 12 months has [employer], [employer], oil, or water [employer] threatened to shut off services in your [...] 05/18/2023 How often do you attend chur or zoroastrianism services? More than 4 times per year [...] place to sleep or slept in a longterm (including now)? No 05/18/2023 PHQ-9 Answer Date [...] P M CDT Height 172.7 cm (5' 8) 11/19/2024 2:56 PM CDT Body Mass Index 25.88 11/19/2024 2:56 PM CDT Plan of Treatment Not on file Medical Devices Explanted Type Area Supervisor Welding Equipment Repairer Device Identifier Shelf Expiration Date Model / Serial / Lot Stent Explanted:Qty: 1 on 05/26/2023 by Rikki Jasso MD at [facility] Stent Right: Kidney [employer] [id number] 6fr 26cm 145cm Radiopaque Positioner Filiform Flexible Tip - [id number] Implanted:Qty: 1 on 05/26/2023 by Rikki Jasso MD at [facility] Explanted:Qty: 1 on 06/14/2023 by Rikki Jasso MD Right: Kidney [employer] [id number] 01/19/2026 [id number] / / [id number] [employer] Stent Ureteral Set Double Pigtail Radiopaque Tip Univers[employer] [id number] Polyurethane Hydrophilic Coated [id number] - [id number] Implanted:Qty: 1 on 05/18/2023 by Julio Fischer MD at [facility] [place] [facility] Explanted:Qty: 1 on 06/14/2023 by Rikki Jasso MD Right: Urethra [employer] [id number] / / [id number] Procedures Procedure Name Priority Date/Time Associated Diagnosis Comments XR SPINE LUMBAR 2 OR 3 VIEWS Schedule Routine, Read Routine (OP Routine) 11/21/2024 9:27 AM CDT Right leg paresthesias SKIN EXCISION Routine 10/17/2024 4:20 PM CDT Vulvar lesion Inclusion cyst of vulva SURGICAL PATHOLOGY Routine 10/17/2024 3: 45 PM CDT Vulvar lesion EGFR Routine 09/20/2024 7:36 AM LATH TIER DIFFERENTIAL AUTO Routine 09/20/2024 7:3 6 AM LATH TIER LIPID PANEL Routine 09/20/2024 7:36 AM LATH TIER Screening, lipid ALBUMIN Routine 09/20/2024 7:36 AM LATH TIER VITAMIN B1 Routine 09/20/2024 7:36 AM LATH TIER IRON PROFILE W/ IBC Routine 09/20/2024 7 :36 AM LATH TIER CBC WITH AUTO DIFFERENTIAL Routine 09/20/2024 7:36 AM LATH TIER BASIC METABOLIC PANEL Routine 09/20/2024 7:36 AM LATH TIER PREALBUMIN Routine 09/20/2024 7:36 AM LATH TIER SCREENING MAMMOGRAM BILATERAL W CLINT Schedule Routine, Read Routine (OP Routine) 07/02/2024 3:03 PM LATH TIER Encounter for screening mammogram for malignant neoplasm [...] Jakub Gomez M.D. MF: [email or web address] Report ID: [id number] Reading Location: [id number] Procedure Note Jakub Gomez MD - 11/24/2024 EXAM DESCRIPTION: XR SPINE LUMBAR 2 OR 3 VIEWS REASON FOR STUDY: right leg paresthesia Right sided low back pain and skin sensitivity since 11/13 FINDINGS: Three views submitted with comparison 12/12/2023. No acute fracture. Grade 1 anterolisthesis L4 on L5. Mild L4-B6oognoqaekhsu disc disease. Trip transitional L5 vertebra. IMPRESSION: Mild L4-L5 degenerative disc disease with grade 1 anterolisthesis. THIS IS AN ELECTRONICALLY VERIFIED FINAL REPORT 11/24/2024 12:06 PM - Electronically signed by Jakub Gomez M.D. MF: [email or web address] Report ID: [id number] Reading Location: [id number] Debbie CORONA IMG XR PROCEDURES Final R [...] repeated on a total of 6 lesions. us Shantell Echevarria MD DERM PROCEDURE ORDERABLES Final Result * Surgical pathology (10/17/2024 3:45 PM CDT) Tissue (Vulva / Labia Biopsy) 10/17/2024 3:45 PM CDT 10/18/2024 8:16 AM CDT Narrative PATHOLOGY [facility] - 10/21/2024 5:18 PM CDT [facility] Department of Pathology [address] [place] [address] Note to Patients: This report may contain [...] : 1975 (Age: 48) Gender: F Address: [address] [place] [address] [facility] #: [id number] Service: UNKNOWN Location: Patient Type: [facility] SPECIMEN Taken: 10/17/2024 Received: 10/18/2024 Accessioned: [...] Jar 0. jjb/10/18/2024 09:46 ALEX Hendricks, [facility] Microscopic slide review and interpretation for this case was performed at [facility], Department of Surgical Pathology, [address] [facility] [place], [place] [id number], [place] [address] CLIA # [id number] Shantell Echevarria MD LAB PATHOLOGY ORDERABLES F inal Result PATHOLOGY [facility] * eGFR (09/20/2024 7:36 AM LATH TIER) eGFR 71 >=60 mL/min/1. 73 m2 Comment: [...] of Race in Diagnosing Kidney Disease, JASN 2020). The CKD-EPI equation should not be used for patients with unstable renal function and has not been validated in children and those over 70. Current interpretive data was last reviewed 2021. Testing performed by: [facility], [address] [place] [address]., [address] Blood 09/20/2024 7:36 AM LATH TIER 09/20/2024 8:20 AM LATH TIER Devonte Onofre MD LAB BLOOD ORDERABLES Sherri santoyo Result [facility] [address] [facility] Department [place] [address] * Differential, auto (09/20/2024 7:36 AM LATH TIER) Neutrophil abs 4.4 1.5 - 6.5 K/cumm Comment:Testing performed by : [address] [address] Imm gran abs 0.0 0.0 - 0.1 K/cumm HARIS Comment:Testing performed by : [address] [address] Lymphocyte abs 1.4 0.8 - 3.3 K/cumm HARIS Comment:Testing performed by : [address] [address] Monocyte abs 0.5 0.2 - 0.8 K/cumm HARIS Comment:Testing performed by : [address] [address] Eosinophil abs 0.2 0.0 - 0.5 K/cumm HARIS Comment:Testing performed by : [address] [address] Basophil abs 0.1 0.0 - 0.1 K/cumm HARIS Comment:Testing performed by : [address] [address] Neutrophil pct 65.9 % HARIS Comment: Interpretive Data Percent cell count reference ranges are not reported, since discordance with absolute values may lead to misinterpretation of CBC data. Current Interpretive Data was last revised on 2017. Testing performed by: [address] [address] Imm gran pct 0.5 % HARIS Comment: Interpretive Data Percent cell count reference ranges are not reported, since discordance with absolute values may lead to misinterpretation of CBC data. Current Interpretive Data was last revised on 2017. Testing performed by: [address] [address] Lymphocyte pct 21.5 % [facility] Comment: Interpretive Data Percent cell count reference ranges are not reported, since discordance with absolute values may lead to misinterpretation of CBC data. Current Interpretive Data was last revised on 2017. Testing performed by: [address] [address] Monocyte pct 7.7 % [facility] Comment: Interpretive Data Percent cell count reference ranges are not reported, since discordance with absolute values may lead to misinterpretation of CBC data. Current Interpretive Data was last revised on 2017. Testing performed by: [address] [address] Eosinophil pct 3.3 % [facility] Comment: Interpretive Data Percent cell count reference ranges are not reported, since discordance with absolute values may lead to misinterpretation of CBC data. Current Interpretive Data was last revised on 2017. Testing performed by: [address] [address] Basophil pct 1.1 % [facility] Comment: Interpretive Data Percent cell count reference ranges are not reported, since discordance with absolute values may lead to misinterpretation of CBC data. Current Interpretive Data was last revised on 2017. Testing performed by: [address] [address] Blood 09/20/2024 7:36 AM LATH TIER 09/20/2024 7:36 AM LATH TIER us Devonte Onofre MD LAB BLOOD ORDERABLES Sherri santoyo Result HARIS MEDINA [address] [facility] Department [place] [address] * Iron profile w/ IBC (09/20/2024 7:36 AM LATH TIER) [facility] Signature Iron TNP 35 - 145 mcg/dL Comment:Testing performed by : [address] [place]., [address] TIBC See Comment 250 - 400 HARIS Comment: Unable to calculate Testing performed by: [address] [address] Transferrin saturation See Comment 20 - 50 HARIS MEDINA Comment: Unable to calculate Testing performed by: [address] [address] Blood 09/20/2024 7:36 AM LATH TIER 09/20/2024 8:20 AM LATH TIER us Devonte Onofre MD LAB BLOOD ORDERABLES Sherri santoyo Result HARIS [address] [facility] Department of Laboratories [place], [place] [id number] * (ABNORMAL) CBC with auto differential (09/20/2024 7:36 AM LATH TIER) WBC 6.7 3.8 - 9.9 K/cumm Comment:Testing performed by : [address] [address] Hgb 17.4(H) 11.9 - 15.5 g/dL HARIS MEDINA Comment:Testing performed by : [address] [address] Hct 50.9(H) 35.6 - 45.5 % [facility] MEDINA Comment:Testing performed by : [address] [address] Plt 209 150 - 400 K/cumm HARIS MEDINA Comment:Testing performed by : [address] [address] MPV 10.2 9.1 - 12.3 fL HARIS MEDINA Comment:Testing performed by : [address] [address] RBC 5.68(H) 3.90 - 5.20 M/cumm HARIS MEDINA Comment:Testing performed by : [address] [address] MCV 89.6 81.3 - 96.4 fL HARIS MEDINA Comment:Testing performed by : [address] [place] [address] MCH 30.6 27.1 - 33.3 pg HARIS MEDINA Comment:Testing performed by : [address] [address] MCHC 34.2 32.3 - 35.7 g/dL HARIS MEDINA Comment:Testing performed by : [address] [address] RDW CV 12.4 11.1 - 14.9 % HARIS MEDINA Comment:Testing performed by : [address] [address] RDW SD 41.0 35.7 - 48.1 fL HARIS MEDINA Comment:Testing performed by : [address] [address] NRBC abs 0.00 0.00 - 0.01 K/cumm HARIS MEDINA Comment:Testing performed by : [address] [address] Blood 09/20/2024 7:36 AM LATH TIER 09/20/2024 8:21 AM LATH TIER us Devonte Onofre MD LAB BLOOD ORDERABLES Sherri santoyo Result [facility] [address] [facility] Department [place] [address] * Vitamin B1 (09/20/2024 7:36 AM LATH TIER) [facility] Thiamine (Vit B1) 107 70 - 180 nmol/L [facility] Comment: ADDITIONAL INFORMATION This test was developed and its performance characteristics determined by [facility] in a manner consistent with CLIA requirements. This test has not been cleared or approved by the U.S. Food and Drug Administration. Test Performed by: [facility] [address] [place] [address] Molder Hand: Cuate Jackson Ph.D.; CLIA# [id number] Testing performed by: [address], [place]., [address] Blood 09/20/2024 7:36 AM LATH TIER 09/20/2024 8:20 AM LATH TIER Devonte Onofre MD LAB BLOOD ORDERABLES Sherri l Result Performing Organization Address City/[facility] [address]/ZIP Co de Phone Number DAV[address] [address] [facility] * Prealbumin (09/20/2024 7:36 AM LATH TIER) Prealbumin 24.3 20.0 - 40.0 mg/dL Blood 09/20/2024 7:36 AM LATH TIER 09/20/2024 10:26 AM LATH TIER us Devonte Onofre MD LAB BLOOD ORDERABLES Sherri l Result Performing Organization Address [facility] [address]/[facility] Co de Phone Number [address] [address] * Albumin (09/20/2024 7:36 AM LATH TIER) Albumin 4.4 3.5 - 5.0 g/dL Comment:Testing performed by : [facility], [address] [place] [address]., [address] Blood 09/20/2024 7:36 AM LATH TIER 09/20/2024 8:20 AM LATH TIER Devonte Onofer MD LAB BLOOD ORDERABLES Sherri l Result Performing Organization Address City/[facility] [address]/[facility] Co de Phone Number [address] [address] * Lipid panel (09/20/2024 7:36 AM LATH TIER) Cholesterol 122 30 - 199 mg/dL Comment: Interpretive Data Ages < or = 19 years Acceptable: <170 mg/dL Borderline high: 170-199 mg/dL High: >or= 200 mg/dL Ages > or = 20 years Desirable: <200 mg/dL Borderline high: 200-239 mg/dL High: >or= 240 mg/dL Literature References: 1. Expert Panel on Integrated Guidelines for Cardiovascular Health and Risk Reduction in Children and Adolescents. Pediatrics 2011;128:S213 2. NCEP Expert Panel. Circulation 2004;110:227 Current Interpretive Data was last revised on 2018. Testing performed by: [address] [address] Triglycerides 114 <=149 mg/dL HARIS Comment: Interpretive Data Ages < or = 9 years Acceptable: <75 mg/dL Borderline high: 75-99 mg/dL High: >or= 100 mg/dL Ages 10 to 20 years Acceptable: <90 mg/dL Borderline high: 90-129 mg/dL High: >or= 130 mg/dL Ages > or = 20 years Desirable: <150 mg/dL Borderline high: 150-199 mg/dL High: 200-499 mg/dL Very high: >or= 499 mg/dL Literature References: 1. Expert Panel on Integrated Guidelines for Cardiovascular Health and Risk Reduction in Children and Adolescents. Pediatrics 2011;128:S213 2. NCEP Expert Panel. Circulation 2004;110:227 Current Interpretive Data was last revised on 2018. Testing performed by: [address] [address] HDL 46 >=40 mg/dL HARIS Comment: Interpretive Data Ages < or = 19 years Acceptable: >45 mg/dL Borderline low: 40-45 mg/dL Low: <40 mg/dL Ages > or = 20 years Desirable: >or= 60 mg/dL Low: <40 mg/dL Literature References: 1. Expert Panel on Integrated Guidelines for Cardiovascular Health and Risk Reduction in Children and Adolescents. Pediatrics 2011;128:S213 2. NCEP Expert Panel. Circulation 2004;110:227 Current Interpretive Data was last revised on 2018. Testing performed by: [address] [address] LDL, calculated 55 <=129 mg/dL HARIS Comment: Interpretive Data Ages < or = 19 years Acceptable: <110 mg/dL Borderline high: 110-129 mg/dL High: >or= 130 mg/dL Ages > or = 20 years Optimal: <100 mg/dL Near optimal: 100-129 mg/dL Borderline high: 130-159 mg/dL High: >160 mg/dL Calculated using the Cj LDL-C estimating equation. This equation was implemented on 2024. Prior to this date LDL-C was estimated using the Friedewald equation. Literature References: 1. Expert Panel on Integrated Guidelines for Cardiovascular Health and Risk Reduction in Children and Adolescents. Pediatrics 2011;128:S213 2. NCEP Expert Panel. Circulation 2004;110:227 3. Cj Vigil et al. DANILO Cardiol. 2020 November 14;5(5):540-548. doi: 10.1001/jamacardio.2020.0013 Current Interpretive Data was last revised on 2024. Testing performed by: [address] [address] Non-HDL Cholesterol 76 mg/dL HARIS MEDINA Comment: Interpretive Data Ages < or = 19 years Acceptable: <120 mg/dL Borderline high: 120-144 mg/dL High: >145 mg/dL Ages > or = 20 years When triglycerides are >200 mg/dL, Non-HDL cholesterol is a secondary target of therapy with treatment goals that are 30 mg/dL greater than the LDL cholesterol target. Literature References: 1. Expert Panel on Integrated Guidelines for Cardiovascular Health and Risk Reduction in Children and Adolescents. Pediatrics 2011;128:S213 2. NCEP Expert Panel. Circulation 2004;110:227 Current Interpretive Data was last revised on 2018. Testing performed by: [address] [address] Chol/HDL ratio 3 HARIS MEDINA Comment:Testing performed by : [address] [address] Blood 09/20/2024 7:36 AM LATH TIER 09/20/2024 8:21 AM LATH TIER us Ceci Max MD LAB BLOOD ORDERABLE S Final Result HARIS [address] [facility] Department of Laboratories [place], [place] [id number] * Basic metabolic panel (09/20/2024 7:36 AM LATH TIER) Sodium 140 135 - 145 mmol/L Comment:Testing performed by : [address] [address] Potassium, pl 4.2 3.3 - 4.9 mmol/L HARIS Comment: Hemolyzed; Potassium value may be falsely elevated by as much as 1.0 mmol/L. Suggest redraw and reanalysis. Testing performed by: [address], [place]., [address] Chloride 105 97 - 110 mmol/L HARIS Comment:Testing performed by : [address] [address] CO2 23 22 - 32 mmol/L HARIS Comment:Testing performed by : [address], [place]., [address] Anion gap 12 2 - 15 mmol/L HARIS Comment:Testing performed by : [address] [address] BUN 8 6 - 25 mg/dL HARIS Comment:Testing performed by : [address] [address] Creatinine 0.99 0.60 - 1.10 mg/dL HARIS Comment:Testing performed by : [address] [address] Glucose 84 70 - 199 mg/dL HARIS Comment: Interpretive Data Fasting glucose >/= 126 mg/dl is diagnostic for diabetes. Fasting is defined as no caloric intake for at least 8 hours. Fasting glucose between 100 mg/dl to 125 mg/dl is diagnostic of prediabetes. In a patient with classic symptoms of hyperglycemia or hyperglycemic crisis, a random glucose >/= 200 mg/dl is diagnostic for diabetes. In the absence of unequivocal hyperglycemia, results should be confirmed by repeat testing. The classification and Diagnosis of Diabetes Diabetes Care 2021; 46: S19-S40. Current interpretive data was last revised 2022. Testing performed by: [address] [address] Calcium 9.8 8.5 - 10.3 mg/dL HARIS Comment:Testing performed by : [address], [place]., [address] Blood 09/20/2024 7:36 AM LATH TIER 09/20/2024 8:20 AM LATH TIER Devonte Onofre MD LAB BLOOD ORDERABLES Sherri natanael Result HARIS [address] [facility] [place] [address] * Screening Mammogram Bilateral W Clint (07/02/2024 3:03 PM LATH TIER) Anatomical Region Laterality Modality Breast Bilateral Mammography Impressions 07/02/2024 9:31 PM LATH TIER BI-RADS ATLAS category (overall): 2 - Benign There is no mammographic evidence of malignancy. A 1 year screening mammogram is recommended. The patient has been or will be contacted. We recommend annual screening mammography for women at average risk of breast cancer beginning at age 40, based on guidelines of the [employer] (ACR Practice Parameter for the Performance of Screening and Diagnostic Mammography) and [employer]. For women with and elevated risk of breast cancer, please refer to the ACR Practice Parameter for specific screening recommendations. The patient will be entered into a reminder system with a target due date of 1 year for her next screening exam. Narrative 07/02/2024 9:31 PM LATH TIER Screening Mammogram Bilateral W Clint: 07/02/24 The study was acquired using full field digital technology and interpreted from soft copy. 2D digital mammographic views, as well as 3D digital tomosynthesis were performed in the CC and MLO projections. CLINICAL: Encounter for screening mammogram for malignant neoplasm of breast. No relevant medical history has been documented for this patient. History of breast cancer in Father's Sister. COMPARISONS: 01/03/2023 SCREENING MAMMOGRAM BILATERAL W CLINT 09/24/2021 Breast Imaging Diagnostic Outside Reference 09/24/2021 Breast Imaging US Outside Reference 09/24/2021 US BREAST LEFT LIMITED 09/24/2021 DIAGNOSTIC MAMMOGRAM BILATERAL W CLINT 09/14/2020 Breast Imaging Screening Outside Reference 09/14/2020 SCREENING MAMMOGRAM BILATERAL W CLINT 08/28/2019 Breast Imaging Screening Outside Reference 08/28/2019 SCREENING MAMMOGRAM BILATERAL W CLINT 08/25/2018 Breast Imaging Screening Outside Reference 08/25/2018 SCREENING MAMMOGRAM 2D BILATERAL 02/22/2017 SCREENING MAMMOGRAM 2D BILATERAL 01/28/2016 US BREAST LEFT COMPLETE BREAST TISSUE: There are scattered areas of fibroglandular density. FINDINGS:There are right breast oil cysts. There are postoperative changes in both breasts. No suspicious masses, suspicious calcifications, or other suspicious findings are seen within either breast. There has been no suspicious change. us [facility] MAMMO PROCEDURES Final Resul t * COLONOSCOPY (11/17/2022 8:21 AM CDT) Anatomical Region Laterality Modality Other Narrative Procedure Note Tommie Chen, - 11/17/2022 8:21 AM CDT [facility] ENDOSCOPY Patient Name: Paige Anthony Procedure Date: 11/17/2022 8:21 AM Date of : 1975 Admit Type: Outpatient Age: 47 Gender: Female Attending MD: Tommie Chen D.O. Room: [facility] ENDOSCOPY ROOM 05 Note Status: Finalized Procedure: Colonoscopy Indications: Family history of colon cancer in a first-degree relative before age 60 years, Personal history of colonic polyps, Positive Cologuard test Referring MD: Ceci Max M.D. Providers: Tommie Chen D.O. Medicines: See the Anesthesia note for documentation of the administered medications Complications: No immediate complications. Estimated Blood Loss: Estimated blood loss: none. Procedure: The benefits, risks and alternatives of theprocedure and sedation were discussed and informed consentwas obtained. All questions were answered. Please referto the signed informed consent document in the medical record. The scope was passed under direct vision.The PCF-H180AL colonoscope was introduced through theanus and advanced to the cecum, identified byappendiceal orifice and ileocecal valve. The colonoscopy was performed without difficulty. The patient tolerated the procedure well. The quality of the bowel preparation was poor. Prep was administered in asplit dose. Findings: The entire examined colon appeared normal on direct and retroflexion views. Impression: - Preparation of the colon was poor. - The entire examined colon is normal on direct and retroflexion views. - No specimens collected. Recommendation: - Patient has a contact number available for emergencies. The signs and symptoms of potential delayed complications were discussed with thepatient. Return to normal activities tomorrow. Written discharge instructions were provided to thepatient. - Patient has a contact number available for emergencies. The signs and symptoms of potential delayed complications were discussed with thepatient. Return to normal activities tomorrow. Written discharge instructions were provided to thepatient. - Resume previous diet. - Continue present medications. - Repeat colonoscopy in 3 years for surveillancebased on clinical status at that time. Tommie Chen D.O. 11/17/2022 9:04:51 AM Number of Addenda: 0 Note Initiated On: 11/17/2022 8:21 AM Recognized by the [employer] for promoting quality in endoscopy us Tommie Ortega Chen DO ENDOSCOPY PROCEDURES Fin al Result from Last 3 Months or Most Recently Relevant to Health Maintenance Insurance [facility] CLAIMS [facility] CLAIMS [facility] [employer] Advance Directives For more information, please contact: [phone] * Full Code (Latest Code Status on File) Date Activated Date Inactivated Comments 05/17/2023 9:57 PM 05/20/2023 10:36 PM Care Teams 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
--- OUTSIDE RECORDS SUMMARY | 2024-12-12 09:34 | XMS_ITS | Clinical Summary ---
Author Organization [address] Address [address] [place] [phone] Care Team Providers Care Printing Supervisor Name Role Phone Ceci Max MD [...] of nose. 22 g 07/04/20 24 025 Discontinued(Th erapy completed) meloxicam (MOBIC) 15 mg tablet [...] spasms Assessment & Plan (07/04/2024 7:48 AM TERRAZZO POLISHER HELPER): Chronic. Stable. Continue to follow with chiropractor, massage and adjunct trainer. Hypercalciuria 12/07/2023 Assessment & Plan (07/04/2024 7:49 AM TERRAZZO POLISHER HELPER): Chronic. Continue to follow with Nephrology. Maintain [...] 05/11/2023 Assessment & Plan (07/04/2024 7:49 AM TERRAZZO POLISHER HELPER): No stone passage since 2022. Monitor Assessment & Plan (06/02/2023 11:19 AM TERRAZZO POLISHER HELPER): Acute, but will be chronic Managed by [...] (10/24/2022): Added automatically from request for surgery [id number] Overweight (BMI 25.0-29.9) 08/09/2022 Assessment & Plan (11/19/2024 4:12 PM CDT): Assessment & Plan (11/01/2024 8:09 AM CDT): Chronic, stable BMI Follow-up includes: education provided. Assessment & Plan (07/04/2024 7:49 AM TERRAZZO POLISHER HELPER): Down 10 lbs with Zepbound. BMI 29. Continue [place] bound 5 mg, no further increase at this time. Assessment & Plan (12/07/2023 11:35 AM CDT): BMI Follow-up includes: education provided. Assessment & Plan (06/02/2023 1:07 PM TERRAZZO POLISHER HELPER): Chronic, stable BMI Follow-up includes: nutrition counseling. Abnormal weight gain 08/09/2022 Assessment & Plan (06/02/2023 11:18 AM TERRAZZO POLISHER HELPER): Chronic, stable We reviewed her insurance and medications We discussed healthy habits, and options for weight loss Given she is overweight, encouraged to continue healthy changes Call for questions Mixed hyperlipidemia 04/12/2022 Assessment & Plan (07/04/2024 7:49 AM TERRAZZO POLISHER HELPER): Chronic. Stable. Continue rosuvastatin Assessment & Plan (05/17/2023 8:45 PM CDT): Continue statin Check thyroid function and lipid profile Assessment & Plan (04/12/2022 9:41 AM CDT): Chronic, stable Continue crestor Labs ordered Update me with any changes or concerns Postmenopausal 04/12/2022 Assessment & Plan (07/04/2024 7:50 AM TERRAZZO POLISHER HELPER): Status total hysterectomy. Continue to follow with [...] yearly Assessment & Plan (07/04/2024 7:50 AM TERRAZZO POLISHER HELPER): PMH: 07/04/24 Last pap: s/p total hysterectomy Last mammogram: 06/2024 Last dexa: age 61 Last colonoscopy: 10/2022 repeat 3 years Last tdap: 09/2022 Last Shingrix: age 51 Last eye exam: yearly Encounters Date Type Department Care Team Description 12/01/2024 Telephone [facility] Family Medicine [address] [place] [phone] Debbie Patel PA 11/25/2024 Results Follow-Up [facility] [address] [phone] Debbie Patel PA XR Spine Lumbar 2 Or 3 Vw 11/21/2024 9:10 AM CDT - 11/21/2024 11:59 PM CDT Hospital Encounter [facility] Diagnostic Imaging [address] [place] [address] Right leg paresthesias Discharge Disposition: Discharge to home or self care 11/19/2024 3:00 PM CDT Office Visit [facility] [address] [phone] Debbie Patel PA Right leg paresthesias (Primary Dx); Chronic bilateral low back pain, unspecified whether sciatica present; Overweight (BMI 25.0-29.9) 11/01/2024 7:45 AM CDT Office Visit [address] [phone] Ceci Max MD Vulvar lesion (Primary Dx); Pain of left calf; Overweight (BMI 25.0-29.9); History of obesity; Degenerative disc disease, thoracic 10/21/2024 Results Follow-Up [facility] Obstetrical Gynecology [address] [facility] [address] [place] [phone] Shantell Echevarria MD Surgical pathology 10/17/2024 5:33 PM CDT - 10/17/2024 11:59 PM CDT Hospital Encounter [facility] [address] [place] [address] Vulvar lesion Discharge Disposition: Discharge to home or self care 10/17/2024 3:30 PM CDT Office Visit [facility] Obstetrical Gynecology [address] [facility] [address] [place] [phone] Shantell Echevarria MD Inclusion cyst of vulva (Primary Dx); Vulvar lesion 09/20/2024 7:35 AM TERRAZZO POLISHER HELPER Lab [facility] [place] [address] 09/20/2024 7:20 AM TERRAZZO POLISHER HELPER Lab [facility] [address] [place] [address] Screening, lipid 09/20/2024 Results Follow-Up [facility] Family Medicine [address] [phone] Ceci Max MD Lipid panel from Last 3 Months Immunizations Immunization Administration [...] Right x2, 2007 and 02/23/2023 HYSTERECTOMY 2010 2008/ different surgeries enlarged uterus, ovarian cysts turned into non cancerous tumors on right then removed left URETERAL STENT PLACEMENT 05/18/2023 Right and 05/26/2023 MASTOPEXY 06/16/2023 - 07/16/2023 Bilateral Medical History Medical History Date Comments Colon polyp Asthma 2017 Depression Approx 25 yrs. Ago Hyperlipidemia Sleep [...] 1 Oli Dario Vision loss Brother 2 Gunanr Dario Heart attack Father Amrik Dario Heart disease Father Amrik Dario Hyperlipidemia Father Amrik Dario Stroke Father Amrik Dario Vision loss Father Amrik Bishop Breast cancer Father's Sister No Known Problems Maternal Grandfather Alzheimer's disease Maternal Grandmother Clovis hand Asthma Mother Rand Dario Vision loss Mother Rand Dario Cancer Paternal Grandfather Marvel Bishop Jr. Diabetes Paternal Grandfather Marvel Bishop Jr. Hyperlipidemia Paternal Grandfather Marvel Bishop Jr. Cancer Paternal Grandmother Charissa Bishop Colon cancer Neg Hx Ovarian cancer Neg Hx Uterine cancer Neg Hx Relation Name Status Comments Brother 1 Oli Dario Alive Brother 2 Gunnar Dario Father Amrik Dario Alive Father's Sister Alive Maternal Grandfather Maternal Grandmother Clovis Lewis Mother Rand Bishop Alive Paternal Grandfather Marvel Bishop Jr. Paternal Grandmother Charissa Bishop Sister Alive Social History Tobacco Use Types Packs/Day Years Used Date Smoking Tobacco: Never Smokeless Tobacco: Never Tobacco Cessation:Counseling Given: Not Answered [facility] Utilities Answer Date Recorded In the past 12 months has [employer], [employer], oil, or water [employer] threatened to shut off services in your [...] How often do you attend chur or baptism services? More than 4 times per year 05/18/2023 Do you belong to any clubs o r organizations such as mormon groups, unions, fraternal or athletic groups, or [...] this topic Medical Devices Explanted Type Area Pharmacist Apprentice Device Identifier Shelf Expiration Date Model / Serial / Lot Stent Explanted:Qty: 1 on 05/26/2023 by Rikki Jasso MD at [facility] Stent Right: Kidney [employer] [id number] 6fr 26cm 145cm Radiopaque Positioner Filiform Flexible Tip - [id number] Implanted:Qty: 1 on 05/26/2023 by Rikki Jasso MD at [facility] Explanted:Qty: 1 on 06/14/2023 by Rikki Jasso MD Right: Kidney [employer] [id number] 01/19/2026 [id number] / / [id number] [employer] Stent Ureteral Set Double Pigtail Radiopaque Tip Universa 9mul95th Polyurethane Hydrophilic Coated [id number] - [id number] Implanted:Qty: 1 on 05/18/2023 by Julio Fischer MD at [facility] Explanted:Qty: 1 on 06/14/2023 by Rikki Jasso MD Right: Urethra [employer] [id number] / / [id number] Procedures Procedure Name Priority Date/Time Associated Diagnosis Comments XR SPINE LUMBAR 2 OR 3 VIEWS Schedule Routine, Read Routine (OP Routine) 11/21/2024 9:27 AM CDT Right leg paresthesias SKIN EXCISION Routine 10/17/2024 4:20 PM CDT Vulvar lesion Inclusion cyst of vulva SURGICAL PATHOLOGY Routine 10/17/2024 3: 45 PM CDT Vulvar lesion EGFR Routine 09/20/2024 7:36 AM TERRAZZO POLISHER HELPER DIFFERENTIAL AUTO Routine 09/20/2024 7:3 6 AM TERRAZZO POLISHER HELPER LIPID PANEL Routine 09/20/2024 7:36 AM TERRAZZO POLISHER HELPER Screening, lipid ALBUMIN Routine 09/20/2024 7:36 AM TERRAZZO POLISHER HELPER VITAMIN B1 Routine 09/20/2024 7:36 AM TERRAZZO POLISHER HELPER IRON PROFILE W/ IBC Routine 09/20/2024 7 :36 AM TERRAZZO POLISHER HELPER CBC WITH AUTO DIFFERENTIAL Routine 09/20/2024 7:36 AM TERRAZZO POLISHER HELPER BASIC METABOLIC PANEL Routine 09/20/2024 7:36 AM TERRAZZO POLISHER HELPER PREALBUMIN Routine 09/20/2024 7:36 AM TERRAZZO POLISHER HELPER SCREENING MAMMOGRAM BILATERAL W CLINT Schedule Routine, Read Routine (OP Routine) 07/02/2024 3:03 PM TERRAZZO POLISHER HELPER Encounter for screening mammogram for malignant neoplasm [...] Jakub Gomez M.D. MF: [email or web address] Report ID: [id number] Reading Location: [id number] Procedure Note Jakub Gomez MD - 11/24/2024 EXAM DESCRIPTION: XR SPINE LUMBAR 2 OR 3 VIEWS REASON FOR STUDY: right leg paresthesia Right sided low back pain and skin sensitivity since 11/13 FINDINGS: Three views submitted with comparison 12/12/2023. No acute fracture. Grade 1 anterolisthesis L4 on L5. Mild L4-J5qmuxvaomjrob disc disease. Trip transitional L5 vertebra. IMPRESSION: Mild L4-L5 degenerative disc disease with grade 1 anterolisthesis. THIS IS AN ELECTRONICALLY VERIFIED FINAL REPORT 11/24/2024 12:06 PM - Electronically signed by Jakub Gomez M.D. MF: [email or web address] Report ID: [id number] Reading Location: [place] [address] Debbie CORONA IMG XR PROCEDURES Final R esult * Skin excision (10/17/2024 4:20 PM CDT) Narrative Shantell Echevarria MD - 10/17/2024 4:20 PM CDT Shantell Echevarria MD 10/17/2024 4:22 PM Skin excision Date/Time: 10/17/2024 4:20 PM Performed by: Shanetll Echevarria MD Authorized by: Shantell Echevarria MD [...] repeated on a total of 6 lesions. Result [facility] Shantell Echevarria MD DERM PROCEDURE ORDERABLES Final Result * Surgical pathology (10/17/2024 3:45 PM CDT) Tissue (Vulva / Labia Biopsy) 10/17/2024 3:45 PM CDT 10/18/2024 8:16 AM CDT Narrative PATHOLOGY [facility] - 10/21/2024 5:18 PM CDT [facility] Department of Pathology [address] [place] [address] Note to Patients: This report may contain [...] : 1975 (Age: 48) Gender: F Address: [address] [place] [address] Hospital #: [id number] Service: UNKNOWN Location: Patient Type: [facility] SPECIMEN Taken: 10/17/2024 Received: 10/18/2024 Accessioned: [...] Jar 0. jjb/10/18/2024 09:46 ALEX Hendricks, PA [facility] Microscopic slide review and interpretation for this case was performed at [facility], Department of Surgical Pathology, [address] [facility] [place] [id number], [place] [address] CLIA # [id number] us Shantell Echevarria MD LAB PATHOLOGY ORDERABLES F inal Result PATHOLOGY [facility] * eGFR (09/20/2024 7:36 AM TERRAZZO POLISHER HELPER) eGFR 71 >=60 mL/min/1. 73 m2 Comment: [...] was last reviewed 2021. Testing performed by: [address] [address] Blood 09/20/2024 7:36 AM TERRAZZO POLISHER HELPER 09/20/2024 8:20 AM TERRAZZO POLISHER HELPER us Devonte Onofre MD LAB BLOOD ORDERABLES Sherri santoyo Result [facility] [address] [facility] Department [place] [address] * Differential, auto (09/20/2024 7:36 AM TERRAZZO POLISHER HELPER) Neutrophil abs 4.4 1.5 - 6.5 K/cumm Comment:Testing performed by : [address] [address] Imm gran abs 0.0 0.0 - 0.1 K/cumm HARIS Comment:Testing performed by : [address] [address] Lymphocyte abs 1.4 0.8 - 3.3 K/cumm HARIS Comment:Testing performed by : [address] [address] Monocyte abs 0.5 0.2 - 0.8 K/cumm HARIS Comment:Testing performed by : [address] [address] Eosinophil abs 0.2 0.0 - 0.5 K/cumm [facility] Comment:Testing performed by : [address] [address] Basophil abs 0.1 0.0 - 0.1 K/cumm [facility] Comment:Testing performed by : [address] [address] Neutrophil pct 65.9 % [facility] Comment: Interpretive Data Percent cell count reference ranges are not reported, since discordance with absolute values may lead to misinterpretation of CBC data. Current Interpretive Data was last revised on 2017. Testing performed by: [address] [address] Imm gran pct 0.5 % [facility] Comment: Interpretive Data Percent cell count reference ranges are not reported, since discordance with absolute values may lead to misinterpretation of CBC data. Current Interpretive Data was last revised on 2017. Testing performed by: [address] [address] Lymphocyte pct 21.5 % [facility] Comment: Interpretive Data Percent cell count reference ranges are not reported, since discordance with absolute values may lead to misinterpretation of CBC data. Current Interpretive Data was last revised on 2017. Testing performed by: [address] [address] Monocyte pct 7.7 % [facility] Comment: Interpretive Data Percent cell count reference ranges are not reported, since discordance with absolute values may lead to misinterpretation of CBC data. Current Interpretive Data was last revised on 2017. Testing performed by: [address] [address] Eosinophil pct 3.3 % [facility] Comment: Interpretive Data Percent cell count reference ranges are not reported, since discordance with absolute values may lead to misinterpretation of CBC data. Current Interpretive Data was last revised on 2017. Testing performed by: [address] [address] Basophil pct 1.1 % [facility] Comment: Interpretive Data Percent cell count reference ranges are not reported, since discordance with absolute values may lead to misinterpretation of CBC data. Current Interpretive Data was last revised on 2017. Testing performed by: [address] [address] Blood 09/20/2024 7:36 AM TERRAZZO POLISHER HELPER 09/20/2024 7:36 AM TERRAZZO POLISHER HELPER Devonte Onofre MD LAB BLOOD ORDERABLES Sherri l Result Performing Organization Address [facility] de Phone Number [address] [place] [address] * Iron profile w/ IBC (09/20/2024 7:36 AM TERRAZZO POLISHER HELPER) Pathologist [facility] Iron TNP 35 - 145 mcg/dL Comment:Testing performed by : [address] [address] TIBC See Comment 250 - 400 HARIS Comment: Unable to calculate Testing performed by: [address], [address] Transferrin saturation See Comment 20 - 50 HARIS Comment: Unable to calculate Testing performed by: [address], [address] Blood 09/20/2024 7:36 AM TERRAZZO POLISHER HELPER 09/20/2024 8:20 AM TERRAZZO POLISHER HELPER Devonte Onofre MD LAB BLOOD ORDERABLES Sherri l Result Performing Organization Address [facility] de Phone Number [place] [id number] [facility] [place] [address] * (ABNORMAL) CBC with auto differential (09/20/2024 7:36 AM TERRAZZO POLISHER HELPER) Pathologist [facility] WBC 6.7 3.8 - 9.9 K/cumm Comment:Testing performed by : [address] [address] Hgb 17.4(H) 11.9 - 15.5 g/dL HARIS Comment:Testing performed by : [address] [address] Hct 50.9(H) 35.6 - 45.5 % HARIS Comment:Testing performed by : [address], [address] Plt 209 150 - 400 K/cumm HARIS Comment:Testing performed by : [address], [address] MPV 10.2 9.1 - 12.3 fL HARIS Comment:Testing performed by : [address], [address] RBC 5.68(H) 3.90 - 5.20 M/cumm HARIS Comment:Testing performed by : [address], [address] MCV 89.6 81.3 - 96.4 fL HARIS Comment:Testing performed by : [address], [address] MCH 30.6 27.1 - 33.3 pg HARIS Comment:Testing performed by : [address], [address] MCHC 34.2 32.3 - 35.7 g/dL HARIS Comment:Testing performed by : [address], [address] RDW CV 12.4 11.1 - 14.9 % HARIS Comment:Testing performed by : [address], [address] RDW SD 41.0 35.7 - 48.1 fL HARIS Comment:Testing performed by : [address], [address] NRBC abs 0.00 0.00 - 0.01 K/cumm HARIS Comment:Testing performed by : [address], [address] Blood 09/20/2024 7:36 AM TERRAZZO POLISHER HELPER 09/20/2024 8:21 AM TERRAZZO POLISHER HELPER us Devonte Onofre MD LAB BLOOD ORDERABLES Sherri santoyo Result [facility] [place] [address] * Vitamin B1 (09/20/2024 7:36 AM TERRAZZO POLISHER HELPER) Thiamine (Vit B1) 107 70 - 180 nmol/L [facility] Comment: ADDITIONAL INFORMATION This test was developed and its performance characteristics determined by [facility] in a manner consistent with CLIA requirements. This test has not been cleared or approved by the U.S. Food and Drug Administration. Test Performed by: [address] [address] Superintendent Recreation: Cuate Jackson Ph.D.; CLIA# [id number] Testing performed by: [facility], [address] [place] [address]., [address] Blood 09/20/2024 7:36 AM TERRAZZO POLISHER HELPER 09/20/2024 8:20 AM TERRAZZO POLISHER HELPER us Devonte Onofre MD LAB BLOOD ORDERABLES Sherri l Result Performing Organization Address City/[facility] Co de Phone Number [facility] [address] [address] [place] [facility] * Prealbumin (09/20/2024 7:36 AM TERRAZZO POLISHER HELPER) [facility] Prealbumin 24.3 20.0 - 40.0 mg/dL Blood 09/20/2024 7:36 AM TERRAZZO POLISHER HELPER 09/20/2024 10:26 AM TERRAZZO POLISHER HELPER us Devonte Onofre MD LAB BLOOD ORDERABLES Sherir l Result Performing Organization Address City/[facility] Co de Phone Number HARIS [address] [address] * Albumin (09/20/2024 7:36 AM TERRAZZO POLISHER HELPER) [facility] Albumin 4.4 3.5 - 5.0 g/dL Comment:Testing performed by : [address] [address] Blood 09/20/2024 7:36 AM TERRAZZO POLISHER HELPER 09/20/2024 8:20 AM TERRAZZO POLISHER HELPER Devonte Onofre MD LAB BLOOD ORDERABLES Sherri santoyo Result [facility] [address] [facility] Department [place] [address] * Lipid panel (09/20/2024 7:36 AM TERRAZZO POLISHER HELPER) Cholesterol 122 30 - 199 mg/dL Comment: [...] last revised on 2018. Testing performed by: [address] [address] Triglycerides 114 <=149 mg/dL HARIS Comment: Interpretive [...] last revised on 2018. Testing performed by: [address] [address] HDL 46 >=40 mg/dL HARIS Comment: Interpretive [...] last revised on 2018. Testing performed by: [address] [address] LDL, calculated 55 <=129 mg/dL [facility] MEDINA Comment: Interpretive Data Ages [...] NCEP Expert Panel. Circulation 2004;110:227 3. Cj Zaragoza al. DANILO Cardiol. 2019November 14;5(5):540-548. doi: 10.1001/jamacardio.2020.0013 Current Interpretive Data was last revised on 2024. Testing performed by: [address] [address] Non-HDL Cholesterol 76 mg/dL HARIS Comment: Interpretive Data Ages < [...] last revised on 2018. Testing performed by: [address] [address] Chol/HDL ratio 3 HARIS Comment:Testing performed by : [address] [address] Blood 09/20/2024 7:36 AM TERRAZZO POLISHER HELPER 09/20/2024 8:21 AM TERRAZZO POLISHER HELPER us Ceci Max MD LAB BLOOD ORDERABLE S Final Result [facility] [address] [facility] Department [place] [address] * Basic metabolic panel (09/20/2024 7:36 AM TERRAZZO POLISHER HELPER) Sodium 140 135 - 145 mmol/L Comment:Testing performed by : [address] [address] Potassium, pl 4.2 3.3 - 4.9 mmol/L HARIS Comment: Hemolyzed; Potassium value may be falsely elevated by as much as 1.0 mmol/L. Suggest redraw and reanalysis. Testing performed by: [address] [address] Chloride 105 97 - 110 mmol/L HARIS Comment:Testing performed by : [address] [address] CO2 23 22 - 32 mmol/L HARIS Comment:Testing performed by : [address] [address] Anion gap 12 2 - 15 mmol/L HARIS Comment:Testing performed by : [address] [address] BUN 8 6 - 25 mg/dL HARIS Comment:Testing performed by : [address] [address] Creatinine 0.99 0.60 - 1.10 mg/dL HARIS Comment:Testing performed by : [address] [place] [address] Glucose 84 70 - 199 mg/dL HARIS MEDINA Comment: Interpretive Data Fasting glucose >/= 126 [...] classification and Diagnosis of Diabetes Diabetes Care 202; 46: S19-S40. Current interpretive data was last revised 2022. Testing performed by: [facility], [address] [place] [address]., [address] Calcium 9.8 8.5 - 10.3 mg/dL HARIS MEDINA Comment:Testing performed by : [facility], [address] [place] [address]., [address] Blood 09/20/2024 7:36 AM TERRAZZO POLISHER HELPER 09/20/2024 8:20 AM TERRAZZO POLISHER HELPER us Devonte Onofre MD LAB BLOOD ORDERABLES Sherri l Result [facility] [address] [facility] Department [place] [address] * Screening Mammogram Bilateral W Clint (07/02/2024 3:03 PM TERRAZZO POLISHER HELPER) Anatomical Region Laterality Modality Breast Bilateral Mammography Impressions 07/02/2024 9:31 PM TERRAZZO POLISHER HELPER BI-RADS ATLAS category (overall): 2 - Benign There is no mammographic evidence of malignancy. A 1 year screening mammogram is recommended. The patient has been or will be contacted. We recommend annual screening mammography for women at average risk of breast cancer beginning at age 40, based on guidelines of the [employer] College [employer] (ACR Practice Parameter for the Performance of Screening and Diagnostic Mammography) and [employer] College of Obstetricians and Gynecologists. For women with and elevated risk of breast cancer, please refer to the ACR Practice Parameter for specific screening recommendations. The patient will be entered into a reminder system with a target due date of 1 year for her next screening exam. Narrative 07/02/2024 9:31 PM TERRAZZO POLISHER HELPER Screening Mammogram Bilateral W Clint: 07/02/24 The [...] been no suspicious change. us Kell CORONA IMG MAMMO PROCEDURES Final Resul t * COLONOSCOPY (11/17/2022 8:21 AM CDT) Anatomical Region Laterality Modality Other Narrative Procedure Note Tommie Chen, - 11/17/2022 8:21 AM CDT [facility] GI ENDOSCOPY Patient Name: Paige Anthony Procedure Date: 11/17/2022 8:21 AM Date of : 1975 Admit Type: Outpatient Age: 47 Gender: Female Attending MD: Tommie Chen D.O. Room: [facility] ENDOSCOPY ROOM 05 Note Status: Finalized [...] On: 11/17/2022 8:21 AM Recognized by the [employer] Society for Gastrointestinal Endoscopy for promoting quality in endoscopy Tommie Chen DO ENDOSCOPY PROCEDURES Fin al Result from Last 3 Months or Most Recently Relevant to Health Maintenance [place] [place] [address] CLAIMS [facility] CLAIMS [facility] CLAIMS Advance Directives For more information, please contact: [phone] * Full Code (Latest Code Status on File) Date Activated Date Inactivated Comments 05/17/2023 9:57 PM 05/20/2023 10:36 PM Care Teams Printing Supervisor Relationship Specialty Start Date End Date Ceci Max MD [address] [place] [address] PCP - General Family Medicine 03/09/22
--- OUTSIDE RECORDS SUMMARY | 2024-12-12 09:34 | XMS_ITS | Patient Health Record ---
Author Organization 1 OF Lalito ferreira [facility] Address [address] [address] Care Team Providers Care Stone Splitter Name Role Phone UNKNOWN, UNKNOWN Primary Care Provider Unavailab Sarah Parker Unavailable [phone] Allergies Allergen (clinical drug ingredient) Drug/Non Drug [...] Date Provider Diagnosis 1 OF Lalito Silva [facility] [address] [address] 03/13/2024 Sarah Triana Callus of foot L84 [...] Insured Coverage Start Date Coverage End Date [facility] Claims [address] [place] [address] [id number] Karrie Rea Self - patient is the insured Medical (General) History Medical History History ICD Code Anxiety disorder, Arthritis, Depression ,High cholesterol, Kidney stones Surgical History Surgery Date(Month/Year) B/L ingrown toenail removals 2013
--- OUTSIDE RECORDS SUMMARY | 2024-12-12 09:34 | XMS_ITS | Encounter Summary ---
Author Organization [facility] Healthcare Address [address] [place] [address] Care Team Providers Care Student Education Specialist Name Role Phone Ceci Max MD Primary Care Provi sneha Encounter Details Date Type Department Care Team (Late st Contact Info) Description 12/08/2023 Telephone [facility] Medical Group Family Medicine [address] [address] Ceci Max MD [address] [address] Social History Tobacco Use Types Packs/Day Years Used Date Smoking Tobacco: Never Smokeless Tobacco: Never [facility] Utilities Answer Date Recorded In the past 12 months has [employer] electric, gas, oil, or water company threatened [...] often do you attend chur ch or sabianism services? More than 4 times per year 05/18/2023 Do you belong to any clubs o r organizations such as methodist groups, unions, fraternal or athletic groups, or [...] place to sleep or slept in a group home (including now)? No 05/18/2023 Personal Safety Answer [...] on filedocumented in this encounter Care Teams Student Education Specialist Relationship Specialty Start Date End Date Ceci Max MD [address] [place] [address] PCP - General Family Medicine 03/09/22 documented as of this encounter
--- OUTSIDE RECORDS SUMMARY | 2024-12-12 09:34 | XMS_ITS | Continuity of Care Document ---
Author Name [facility] Organization [facility] Care Team Providers Care Sql Ssrs Developer Name Role Phone [facility] Unavailable Unavailable Problems [...] with PCM she finds after moving to [facility]. [facility] HYPOMENORRHEA Active Condition DoD visit for: administrative [...] AMNEAL PHARMACE, 90 ea. BOTTLE Cancele d [id number] : 2023 0 Pharmac y Data Transac tion Service Facilit y METHYLPREDN ISOLONE (methylpred nisolone), 4 MG, TAB DS PK, ORAL, ZYDUS PHARMACEU, 21 ea. DOSE-PACK Active [id number] 2023 21 Pharmac y Data Transac tion Service Facilit y ONDANSETRON HCL (ONDANSETRO N HCL), 4MG, TABLET, ORAL, GLENMARK PHARMA, 30 ea. 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 Status Comments Source influenza, injectable, quadrivalent, preservative free 2019 ROB, () Not Given influenza , injectabl e, quadrival ent, preservat hernan free [facility] Influenza, seasonal, injectable, preservative free 2014 CYNTHIA [...] ADM Date DC Date Status Disposition Source [facility] OUTPATIENT [id number] cold sx GENIA ROMERO 06/30 Released w/o Limitations [facility]) [facility]li [facility]) OUTPATIENT [id number] GENIA ROMERO 07/20 Released w/o Limitations [facility]) [facility](Opt ometry Clinic) OUTPATIENT [id number] scl VI Manuel I 07/25 Released w/o Limitations [facility](O ptometr y Clinic) [facility](Nmi ght Medicine Clinic) OUTPATIENT [id number] rash on rt arm EDVIN MATA 08/21 Released w/o Limitations [facility] [place] [facility] OUTPATIENT [id number] pelvic pain and hematur ia RAPHAEL GARCIA 11/13 [place]ased w/[place] Limitations [facility] [place] [facility] OUTPATIENT [id number] follow up RAPHAEL GARCIA 11/21 [place]ased w/[place] Limitations [facility] OUTPATIENT [id number] Nutriti on eDlla g RONNELL Crook 11/23 Released w/o Limitations [facility]) OUTPATIENT [id number] sever back pain YVONNE FLORES 11/25 Released w/o Limitations [facility] [place] [facility]) OUTPATIENT [id number] neck discomf ort/hea dache x 1wk ILSA GRIMALDO 01/24 Released w/o Limitations [facility] [place]) OUTPATIENT [id number] neck discomf ort no trauma /injury needs manip PAPITO LUCAS 01/29 Released w/o Limitations [facility] [place] [facility]) OUTPATIENT [id number] severe neck pain,ok per PAPITO Hummel 02/02 Released w/o Limitations [facility] [place] [facility]) OUTPATIENT [id number] NECK ISSUES/ F/U PAPITO LUCAS 02/23 Released w/o Limitations [place] [facility] [place] [facility]) OUTPATIENT [id number] UTI sx YVONNE FLORES 02/28 Released w/o Limitations [place] [facility] [place] [facility]) OUTPATIENT [id number] left shoulde r and left flank pain LILIBETH XAVIER 04/13 Released w/o Limitations [place] [facility]) OUTPATIENT 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 ENID Santiago 05/29 Released w/o Limitations [facility](F P Rok II) th [facility]) TELE CONSULT [id number] please call with results of pregnan cy test done at 0830 PREMA LINDO 05/29 Medical Group(F P Rok I) th [facility] carlos eduardo [facility]) TELE CONSULT [id number] Pregnan cy Results SAM NAIK 06/06 Medical Group(F amily Practic e Contrac t) [facility]) OUTPATIENT [id number] Irregul ar Menstru al Cycle BILL SELENA L 06/13 Released w/o Limitations [facility]( [facility]) [facility]) TELE CONSULT [id number] test results thyroid blood count jun 14 SELENA KHAN 06/14 Medical Group(F P Rok II) [facility]) TELE CONSULT [id number] results BILL SELENA L 06/15 Medical Group([facility]) [facility]) OUTPATIENT [id number] discuss results SELENA KHAN 06/25 Released w/o Limitations [facility]) [facility]) OUTPATIENT [id number] HYPERLI PIDEMIA ANNA MENENDEZ 06/26 Released w/o Limitations [facility](N utritio nal Medicin e) [facility]) OUTPATIENT [id number] f/u cholest prob CABRERA KUMAR 06/26 Released w/o Limitations [facility](F P Rok II) [facility]) TELE CONSULT [id number] 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 07/06 Released w/o Limitations [facility](P hysical Therapy ) [facility] Group(Phy sical Therapy) OUTPATIENT [id number] DIANE TUTTLE P. 07/16 Released w/o Limitations [facility](P hysical Therapy ) [facility](FP Rok II) TELE CONSULT [id number] needs med refill on ortho tricycl en. pt was suppose d to start yesterd frederic LINDO PREMA Dwight 07/23 Medical Group(F P Rok II) Medical Group(FP Rok I) TELE CONSULT [id number] states is suppose d to have blood cholest junaid labs done every 6 wks...n o order in PREMA LINDO Dwight 07/31 Medical Group(F P Rok I) [facility](Phy sical Therapy) OUTPATIENT [id number] DIANE TUTTLE 08/09 Released w/o Limitations [facility](P hysical Therapy ) Medical Group(FP Rok II) TELE CONSULT [id number] cholest test liver functio n aug 01 GUICHO FREEMANSYED Quintanilla 08/09 Medical Group(F P Rok II) Medical Group([facility] II) TELE CONSULT [id number] returen ed your phone call GUICHO PREMA Dwight 08/13 Medical Group(F P Rok II) Medical Group(Phy sical Therapy) OUTPATIENT [id number] DIANE TUTTLE 08/24 Released w/o Limitations [facility](P hysical Therapy ) [facility] Group(Phy sical Therapy) OUTPATIENT [id number] PRESTON RIVER 08/30 Released w/o Limitations [facility](P hysical Therapy ) [facility](Phy sical Therapy) OUTPATIENT [id number] PRESTON RIVER 09/04 Released w/o Limitations [facility](P hysical Therapy ) [facility] Group(Phy sical Therapy) OUTPATIENT [id number] KAIT MONTGOMERY 09/06 Released w/o Limitations [facility](P hysical Therapy ) [facility] Group(FP Rok II) TELE CONSULT [id number] refill ..reque sting call back about mri on knee GUICHO FREEMANSYED Quintanilla 09/06 Medical Group(F P Rok II) [facility]) OUTPATIENT [id number] pt st itch on outside , no other symptom s SELENA KHAN 09/07 Released w/o Limitations [facility](G yn Clinic) [facility] Group(Phy sical Therapy) OUTPATIENT [id number] FATOU HERRERA 09/11 Released w/o Limitations [facility](P hysical Therapy ) Medical Group(FP Rok II) TELE CONSULT [id number] mri result GUICHO PREMA D 09/12 Medical Group(F P Rok II) [facility] Group(Phy sical Therapy) OUTPATIENT [id number] FATOU HERRERA 09/13 Released w/o Limitations [facility](P hysical Therapy ) [facility] Group(FP Rok II) OUTPATIENT [id number] state knee f/u CABRERA KUMAR Released w/o Limitations [facility](F P Rok II) [facility] Group(FP Rok II) TELE CONSULT [id number] wants to talk to nurse about paperwo rk for orthope dist about right knee PREMA LINDO D 09/25 Medical Group(F P Rok II) [facility]) OUTPATIENT [id number] ANNA MENENDEZ 09/27 Released w/o Limitations [facility] Group(N utritio nal Medicin e) Medical Group(FP Rok II) TELE CONSULT [id number] pt needs refills on control and zocor 80mg GUICHOPREMA D 10/15 Medical Group(F P Rok II) Medical Group(FP Rok II) OUTPATIENT [id number] follow up chol CABRERA KUMAR 10/15 Released w/o Limitations [facility](F P Rok II) Medical Group(Phy sical Therapy) OUTPATIENT [id number] BROOKE MEYER 10/22 Released w/o Limitations [facility](P hysical Therapy ) Medical Group(Phy sical Therapy) OUTPATIENT [id number] YVONNE CORNEJO 10/24 Released w/o Limitations [facility](P hysical Therapy ) Medical Group(Phy sical Therapy) OUTPATIENT [id number] YVONNE CORNEJO 10/28 Released w/o Limitations [facility](P hysical Therapy ) [facility] Group(Phy sical Therapy) OUTPATIENT [id number] GREGORIO MONTGOMERY 10/30 Released w/o Limitations [facility](P hysical Therapy ) Medical Group(Phy sical Therapy) OUTPATIENT [id number] KAIT MONTGOMERY 11/04 Released w/o Limitations [facility](P hysical Therapy ) [facility] Group(Phy sical Therapy) OUTPATIENT [id number] YVONNE CORNEJO 11/06 Released w/o Limitations [facility](P hysical Therapy ) Medical Group(Phy sical Therapy) OUTPATIENT [id number] DIANE TUTTLE 11/07 Released w/o Limitations [facility] Group(P hysical Therapy ) Medical Group(FP Rok I) TELE CONSULT [id number] naesua, hot cold flashes , tired GUICHO, MAMYE D 11/12 Medical Group(F P Rok I) Medical Group(Phy sical Therapy) OUTPATIENT [id number] FATOU HERRERA 11/13 Released w/o Limitations [facility](P hysical Therapy ) Medical Group(FP Rok II) TELE CONSULT [id number] pregnan cy test GUICHO, MAMYE D 11/20 Medical Group(F P Rok II) [employer] [facility])(Gene ral Surgery) OUTPATIENT [id number] Pas entered the order KARRIE ARAGON 01/14 Released w/o Limitations [employer] ([facility])(Ge neral Surgery ) [employer] [facility])(Gene ral Surgery) OUTPATIENT [id number] excisio n forearm r mass KARRIE ARAGON 01/28 Released w/o Limitations [employer] ([employer])(Ge neral Surgery ) Procedures Combined list of: 1) Procedures from Department of Veterans Affairs facilities going back up to thelast 18 months, not all VA non-surgical procedures are included; 2) All procedures from the Department of Defense facilities. Procedure Procedure Type Code Date Perfomer Comments Sourc e EXCISION, TUMOR, SOFT TISSUE OF FOREARM AND/OR WRIST AREA, SUBCUTANEOUS; LESS THAN 3 CM 2007 [facility] OPHTHALMOLOGICAL SERVICES: MEDICAL EXAMINATION AND EVALUATION WITH INITIATION OF DIAGNOSTIC AND TREATMENT PROGRAM; COMPREHENSIVE, NEW PATIENT, 1 OR MORE VISITS 2006 [facility] INJECTION(S); SINGLE OR MULTIPLE TRIGGER POINT(S), 1 OR 2 MUSCLE(S) 2006 [facility] OSTEOPATHIC MANIPULATIVE TREATMENT (OMT); 1-2 BODY REGIONS INVOLVED 2006 [facility]D OSTEOPATHIC MANIPULATIVE TREATMENT (OMT); 1-2 BODY REGIONS INVOLVED 2006 [facility] MEDICAL NUTRITION THERAPY; GROUP (2 OR MORE INDIVIDUAL(S)), EACH 30 MINUTES 2006 [facility]D THERAPEUTIC PROCEDURE, 1 OR MORE AREAS, EACH 15 MINUTES; THERAPEUTIC EXERCISES TO DEVELOP STRENGTH AND ENDURANCE, RANGE OF MOTION AND FLEXIBILITY 2007 [facility] PHYSICAL THERAPY RE-EVALUATION 2007 [facility]D APPLICATION OF [...] MEDICAL NUTRITION THERAPY; RE-ASSESSMENT AND INTERVENTION, INDIVIDUAL, [id number] WITH THE PATIENT, EACH 15 MINUTES 2007 [...] RE-EVALUATION 2007 [facility]D PHYSICAL THERAPY RE-EVALUATION 2006 [facility] THERAPEUTIC PROCEDURE, 1 OR MORE AREAS, EACH 15 MINUTES; THERAPEUTIC EXERCISES TO DEVELOP STRENGTH AND ENDURANCE, RANGE OF MOTION AND FLEXIBILITY 2006 [facility] MEDICAL NUTRITION THERAPY; GROUP (2 OR MORE INDIVIDUAL(S)), EACH 30 MINUTES 2006 [facility] 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 Subcutaneous 2007 KARRIE ARAGON [facility] Physical Therapy: ___ Se ion Segments, 15 Minutes Each Physical Therapy: ___ Session Segments, 15 Minutes Each [id number] 2007 FATOU HERRERA ONE ON ONE INSTUCTION OF TWO EXERCISES AND REVIEW OF OLD EXS BY TECH X10 MIN [facility] Physical Medicine Physical Therapy Re-Evaluation Physical Medicine Physical Therapy Re-Evaluation 54816 2007 DIANE TUTTLE [facility] Modalities Cryotherapy Cold Packs Modalities Cryotherapy Cold Packs 25325 2007 YVONNE CORNEJO ICE X10MIN TO RIGHT KNEE AFTER EX'S PER FLOWSHEET DATED 11/07/07 [facility] Physical Therapy: ___ Se ion Segments, 15 Minutes Each Physical Therapy: ___ Session Segments, 15 Minutes Each [id number] 2007 YVONNE CORNEJO ONE ON ONE SUPERVISION OF KNEE EX'S BY HANGING FLAGS DECORATOR x20MIN PER FLOWSHEET DATED 11/07/07 [facility] Modalities Cryotherapy Cold Packs Modalities Cryotherapy Cold Packs 61283 2007 KAIT MONTGOMERY APPLIED TO RIGHT KNEE AFTER EXERCISES BY PT TECH X 10 MIN. [facility] Physical Therapy: ___ Se ion Segments, 15 Minutes Each Physical Therapy: ___ Session Segments, 15 Minutes Each [id number] 2007 KAIT MONTGOMERY 1 ON 1 SUPERVISION OF EXERCISES PER FLOWSHEET DATED OCT 22 BY PT TECH X 15 MIN [facility] Modalities Cryotherapy Cold Packs Modalities Cryotherapy Cold Packs 05388 2007 GREGORIO MONTGOMERY ICE X10MIN TO RIGHT KNEE AFTER EX'S PER FLOW CHART [id number] [facility] Physical Therapy: ___ Se ion Segments, 15 Minutes Each Physical Therapy: ___ Session Segments, 15 Minutes Each 64826 2007 GREGORIO MONTGOMERY ONE ON ONE SUPERVISION OF KNEE EX'S PER FLOW CHART [id number] BY TECH X20MIN [facility] Modalities Cryotherapy Cold Packs Modalities Cryotherapy Cold Packs 36047 2007 YVONNE CORNEJO ICE X10MIN TO RIGHT KNEE AFTER EX'S PER FLOWSHEET DATED 10/29/07 [facility] Physical Therapy: ___ Se ion Segments, 15 Minutes Each Physical Therapy: ___ Session Segments, 15 Minutes Each 46977 2007 YVONNE CORNEJO ONE ON ONE SUPERVISION OF KNEE EX'S BY HANGING FLAGS DECORATOR x22MIN PER FLOWSHEET DATED 09/28/07 [facility] Modalities Cryotherapy Cold Packs Modalities Cryotherapy Cold Packs 39925 2007 YVONNE CORNEJO ICE X10MIN TO RIGHT KNEE AFTER EX'S PER FLOWSHEET DATED 10/25/07 [facility] Physical Therapy: ___ Se ion Segments, 15 Minutes Each Physical Therapy: ___ Session Segments, 15 Minutes Each [id number] 2007 YVONNE CORNEJO ON ONE SUPERVISION OF KNEE EX'S BY HANGING FLAGS DECORATOR x20MIN PER FLOWSHEET DATED 10/25/07 DoD PT A e ment Kinetic Training PT Assessment Kinetic Training 91856 2007 BROOKE MEYER x 10 min with pt (ther ex for QS, SLR in Flex/Ext, HS/gastroc stretches) [facility] Physical Medicine Physical Therapy Evaluation Physical Medicine Physical Therapy Evaluation 42543 2007 BROOKE MEYER DoD Medical Nutrition Therapy Re-a e ment, Intervention Medical Nutrition Therapy Re-assessment, Intervention 21918 2007 ANNA MENENDEZ DoD Modalities Heat Hot Packs Modalities Heat Hot Packs 46052 2007 FATOU HERRERA X10 MIN TO RIGHT KNEE PRIOR TO TX DoD Modalities Ultrasound Modalities Ultrasound 11322 2007 FATOU HERRERA AUTOSOUND TO RIGHT MEDIAL KNEE @ 1.5W/CM2 X10 MIN IN SUPINE POSITION DoD Modalities Heat Hot Packs Modalities Heat Hot Packs 97942 2007 FATOU HERRERA X10 MIN TO RIGHT KNEE PRIOR TO TX DoD Modalities Ultrasound Modalities Ultrasound 40904 2007 FATOU HERRERA ONE ON ONE US TO RIGHT MEDIAL KNEE @ 1.5W/CM2 X8 MIN IN SUPINE POSITION DoD Vaginal JG Prep Vaginal JG Prep 29948 2007 SELENA KHAN [facility] Vaginal Wet [place] Vaginal Wet [place] 78618 2007 SELENA KHAN DoD Modalities Heat Hot Packs Modalities Heat Hot Packs 64232 2007 KAIT MONTGOMERY APPLIED TO RIGHT KNEE X 10 MINS PRIOR TO ULTRASOUND BY TECH. DoD Modalities Ultrasound Modalities Ultrasound 76555 2007 KAIT MONTGOMERY ULTRASOUND 1.5 W/CM2 TO RIGHT MEDIAL KNEE, 1 Mhz, 5 CM SOUNDHEAD, X 8 MIN BY TECH. DoD Modalities Ultrasound Modalities Ultrasound 09004 2007 BRANDI RIVER AUTOSOUND @ 1.5 W/CM^2 TO RIGHT MEDIAL KNEE PULSED AT 50% BY TECH x 8 MIN DoD Modalities Heat Hot Packs Modalities Heat Hot Packs 92456 2007 BRANDI RIVER MH X 10 MIN TO RIGHT KNEE PRIOR TO TX DoD Modalities Heat Hot Packs Modalities Heat Hot Packs 65019 2007 BR[place]I RIVER MH X 10 MIN TO RIGHT KNEE PRIOR TO TX DoD Modalities Ultrasound Modalities Ultrasound 38708 2007 BR[place]I RIVER ONE ON ONE US @ 1.5 W/CM^2 TO RIGHT MEDIAL KNEE PULSED @ 50% BY TECH x 8 MIN [facility] Physical Medicine Physical Therapy Evaluation Physical Medicine Physical Therapy Evaluation 38046 2007 DIANE TUTTLE Physical Medicine Physical Therapy Re-Evaluation Physical Medicine Physical Therapy Re-Evaluation 17430 2007 DIANE TUTTLE Physical Medicine Physical Therapy Re-Evaluation Physical Medicine Physical Therapy Re-Evaluation 02723 2006 DIANE TUTTLE Physical Therapy: ___ Se ion Segments, 15 Minutes Each Physical Therapy: ___ Session Segments, 15 Minutes Each 64074 2006 DIANE TUTTLE Physical Medicine Physical Therapy Evaluation Physical Medicine Physical Therapy Evaluation 58187 2006 DIANE TUTTLE Medical Nutrition Therapy Group (2 or More Individual(s)) Medical Nutrition Therapy Group (2 or More Individual(s)) 07756 2006 ANNA MENENDEZ DoD Injection Of Trigger Point(s) One Or Two Muscle Group(s) Injection Of Trigger Point(s) One Or Two Muscle Group(s) 11661 2006 PAPITO LUCAS DoD Injection, triamcinolone acetonide, not otherwise specified, 10 mg 2006 CICORA, PAPITO A Triamcinolone 40mg injected as described. DoD Osteopathic Manip Treatment (OMT) 1-2 Body Regions Involved Osteopathic Manip Treatment (OMT) 1-2 Body Regions Involved 61054 2006 CICORA, PAPITO A HVLA to cervical lesions and indirect method to thorax. Neutralized. Decreased pain and spasm w/ improved ROM. DoD Osteopathic Manip Treatment (OMT) 1-2 Body Regions Involved Osteopathic Manip Treatment (OMT) 1-2 Body Regions Involved 62043 2006 CICORA, PAPITO A HVLA to cervical lesions. Neutralized. Decreased pain and spasm w/ improved ROM. DoD Medical Nutrition Therapy Group (2 or More Individual(s)) Medical Nutrition Therapy Group (2 or More Individual(s)) 68038 2006 RONNELL GRIFFITH [facility] Prescription & Fitting Bilateral Corneal Lenses (Not Aphakia Prescription & Fitting Bilateral Corneal Lenses (Not Aphakia 02692 2006 VI HANCOCK Determination Of Refractive State Determination Of Refractive State 33337 2006 VI HANCOCK Ophthalmological New Patient Start Comprehensive Care Ophthalmological New Patient Start Comprehensive Care 07275 2006 VI HANCOCK Social History Combined list of available smoking, tobacco, and other social history from Department of Defense and Veterans Affairs facilities. Social History Type Response Date Comment Sour e This section is an empty social history section. DoD
--- OUTSIDE RECORDS SUMMARY | 2024-12-12 09:34 | XMS_ITS | Encounter Summary ---
Author Organization [facility] Healthcare Address [address] [place] [address] Care Team Providers Care Turbine Inspector Name Role Phone Ceci Max MD Primary Care Provi sneha Encounter Details Date Type Department Care Team ([facility] st Contact Info) Description 10/21/2024 Results Follow-Up [facility] Medical Group Obstetrical Gynecology [address] [facility] [address] [place] [address] Shantell Echevarria MD [address] [facility] [address] [place] [address] Surgical pathology Social History Tobacco Use Types Packs/Day Years Used Date Smoking Tobacco: Never Smokeless Tobacco: Never [facility] Utilities Answer Date Recorded In the past 12 months has [employer] electric, gas, oil, or water company threatened [...] often do you attend chur ch or islam services? More than 4 times per year 05/18/2023 Do you belong to any clubs o r organizations such as holiness groups, unions, fraternal or athletic groups, or [...] place to sleep or slept in a retirement (including now)? No 05/18/2023 PHQ-9 Answer Date [...] on filedocumented in this encounter Care Teams Turbine Inspector Relationship Specialty Start Date End Date Ceci Max MD [address] [place] [address] PCP - General Family Medicine 03/09/22 documented as of this encounter
== END 2024-12-12 09:26 | disposition home or self-care (01) ==
LOC: ANHSURGERY 09:30
PROVIDERS: PCP Family Medicine; Visit Provider Surgery Plastic and Reconstructive Surgery
DX: E78.00 Pure hypercholesterolemia, unspecified (principal); Z01.818 Encounter for other preprocedural examination
CPT/HCPCS: 93005

== ENCOUNTER 2024-12-17 01:59 | Day surgery (SDC) | payer OTHER, SELFPAY ==
[2024-12-10 14:29] VITALS: BMI 24.7
--- NOTE | 2024-12-10 15:07 | PC.NURSE ---
Report to the Outpatient Waiting Room, entrance under the green pavilion located off [facility], at 0630 on 12-17-24. Planned Procedure Time: 0830.? Time changes happen often and if your time is changed the preop area will call you the afternoon before. - You and your visitor will be asked to self-screen and do not enter if you have any COVID symptoms. Please call surgeon if you need to reschedule. - A mask is optional within the hospital at this time. Patients may have clear liquids (water, carbonated beverages, clear teas, apple juice) until 3 hours prior to surgery with a maximum of 20 ounces. 0530 - No food from midnight until time of surgery and no smoking, or chewing tobacco (or any form of nicotine). No chewing gum, candy or mints. - Infants may have breast milk until 4 hours before surgery, formula 6 hours prior to surgery. - Children will be allowed to drink immediately following surgery.? If applicable, please bring a bottle or sippy cup to assist with drinking. Juice, water, soda, and popsicles are readily available.? For infants on formula, please bring formula the day of surgery.? Pacifiers are allowed. Take only the following medications with a SIP of water on the morning of surgery: None DO NOT STOP ANY OF YOUR OTHER PRESCRIPTION MEDICATIONS PRIOR TO SURGERY EXCEPT THE FOLLOWING Hold all vitamins and supplements for 3 days per anesthesiologist. (12-14-24 is date to take last dose) Medications to discontinue per physician: Zepbound and meloxicam Date to take last dose: Per Dr. Onofre Please no make-up, nail hebrew, hairspray, perfume, deodorant, or body powder the day of surgery.? No jewelry (including any body piercings) or valuables the day of surgery, leave them at home.? Please take a shower or bath the night before, or the morning of, surgery with an antibacterial soap.? Wear comfortable, loose fitting clothing. (Button down shirt/ zip up jacket is best for your surgery)? Children are encouraged to wear pajamas. - Jewelry must be removed prior to entering the operating room.? Rings and piercings that are not removed may be cut off. - The hospital will not accept responsibility for valuables.? - Please leave all valuables, including medications, at home the day of surgery. If you are going home after surgery, a licensed bulk delivery driver must drive you home.? - NO public transportation without another adult if you receive anesthesia. - We recommend that an adult stay with you for 24 hours following discharge. - We also recommend that you do not drive, make important decision, drink alcoholic beverages, or take any drugs that were not prescribed by your health care provider for at least 24 hours after your discharge time. For Pediatric surgeries, we recommend two adults accompany the child home. Follow any additional instructions given to you from your surgeon. Telephone instructions given to Karrie Rea and asked if any additional questions and then verbalized understanding. Patient advised to call surgeon office or pre surgery nurse liaison [phone] if any additional questions.
[2024-12-17] VITALS (9 sets, daily range): BP systolic 110–132; BP diastolic 64–85; PULSE 65–77; RESP 16–20; TEMP 36.4–36.5; O2SAT 97–100
--- OUTSIDE RECORDS SUMMARY | 2024-12-17 02:01 | XMS_ITS | Clinical Summary ---
Author Organization [address] Address [address] [place] [phone] Care Team Providers Care Paperhanger Name Role Phone Ceci Max MD Primary [...] g 07/04/20 24 025 Discontinued(Th erapy completed) Active Problems Problem Noted Date Diagnosed Date [...] spasms Assessment & Plan (07/04/2024 7:48 AM DICE MANAGER): Chronic. Stable. Continue to follow with chiropractor, massage and personal development educator. Hypercalciuria 12/07/2023 Assessment & Plan (07/04/2024 7:49 AM DICE MANAGER): Chronic. Continue to follow with Nephrology. Maintain [...] 05/11/2023 Assessment & Plan (07/04/2024 7:49 AM DICE MANAGER): No stone passage since 2022. Monitor Assessment & Plan (06/02/2023 11:19 AM DICE MANAGER): Acute, but will be chronic Managed by [...] (10/24/2022): Added automatically from request for surgery [id number] Overweight (BMI 25.0-29.9) 08/09/2022 Assessment & Plan (11/19/2024 4:12 PM CDT): Assessment & Plan (11/01/2024 8:09 AM CDT): Chronic, stable BMI Follow-up includes: education provided. Assessment & Plan (07/04/2024 7:49 AM DICE MANAGER): Down 10 lbs with Zepbound. BMI 29. Continue Corry bound 5 mg, no further increase at this time. Assessment & Plan (12/07/2023 11:35 AM CDT): BMI Follow-up includes: education provided. Assessment & Plan (06/02/2023 1:07 PM DICE MANAGER): Chronic, stable BMI Follow-up includes: nutrition counseling. Abnormal weight gain 08/09/2022 Assessment & Plan (06/02/2023 11:18 AM DICE MANAGER): Chronic, stable We reviewed her insurance and medications We discussed healthy habits, and options for weight loss Given she is overweight, encouraged to continue healthy changes Call for questions Mixed hyperlipidemia 04/12/2022 Assessment & Plan (07/04/2024 7:49 AM DICE MANAGER): Chronic. Stable. Continue rosuvastatin Assessment & Plan (05/17/2023 8:45 PM CDT): Continue statin Check thyroid function and lipid profile Assessment & Plan (04/12/2022 9:41 AM CDT): Chronic, stable Continue crestor Labs ordered Update me with any changes or concerns Postmenopausal 04/12/2022 Assessment & Plan (07/04/2024 7:50 AM DICE MANAGER): Status total hysterectomy. Continue to follow with [...] yearly Assessment & Plan (07/04/2024 7:50 AM DICE MANAGER): PMH: 07/04/24 Last pap: s/p total hysterectomy Last mammogram: 06/2024 Last dexa: age 61 Last colonoscopy: 10/2022 repeat 3 years Last tdap: 09/2022 Last Shingrix: age 51 Last eye exam: yearly Encounters Date Type Department Care Team Description 12/01/2024 Telephone [facility] Medical [facility] Family Medicine [address] [phone] Debbie Patel PA 11/25/2024 Results Follow-Up [facility] Family Medicine [address] [phone] Debbie Patel PA XR Spine Lumbar 2 Or 3 Vw 11/21/2024 9:10 AM CDT - 11/21/2024 11:59 PM CDT Hospital Encounter [facility] Diagnostic Imaging [facility] [place] [address] Right leg paresthesias Discharge Disposition: Discharge to home or self care 11/19/2024 3:00 PM CDT Office Visit [address] [phone] Debbie Patel PA Right leg paresthesias (Primary Dx); Chronic bilateral low back pain, unspecified whether sciatica present; Overweight (BMI 25.0-29.9) 11/01/2024 7:45 AM CDT Office Visit [facility] [address] [phone] Ceci Max MD Vulvar lesion (Primary Dx); Pain of left calf; Overweight (BMI 25.0-29.9); History of obesity; Degenerative disc disease, thoracic 10/21/2024 Results Follow-Up [facility] Obstetrical Gynecology [address] [facility] [address] [place] [phone] Shantell Echevarria MD Surgical pathology 10/17/2024 5:33 PM CDT - 10/17/2024 11:59 PM CDT Hospital Encounter [facility] [address] [place] [address] Vulvar lesion Discharge Disposition: Discharge to home or self care 10/17/2024 3:30 PM CDT Office Visit [facility] Obstetrical Gynecology [address] [place] [phone] Shantell Echevarria MD Inclusion cyst of vulva (Primary Dx); Vulvar lesion 09/20/2024 7:35 AM DICE MANAGER Lab [facility] [address] [place] [address] 09/20/2024 7:20 AM DICE MANAGER Lab [facility] [address] [place] [address] Screening, lipid 09/20/2024 Results Follow-Up [facility] Family Medicine [address] [phone] Ceci Max MD Lipid panel [...] not wear cp ap Allergic rhinitis spring Food intolerance spicy and dried fruit Headache [...] Maternal Grandmother Clovis hand Asthma Mother Rand Bishop Vision loss Mother Rand Bishop Cancer Paternal Grandfather Marvel Bishop Jr. Diabetes Paternal Grandfather Marvel Bishop Jr. Hyperlipidemia Paternal Grandfather Marvel Bishop Jr. Cancer Paternal Grandmother Charissa Bishop Colon cancer Neg Hx Ovarian cancer Neg Hx Uterine cancer Neg Hx Relation Name Status Comments Brother 1 Oli Bishop Alive Brother 2 Gunnar Dario Father Amrik Bishop Alive Father's Sister Alive Maternal Grandfather Maternal Grandmother Clovis Lewis Mother Rand Bishop Alive Paternal Grandfather Marvel Bishop Jr. Paternal Grandmother Charissa Bishop Sister Alive Social History Tobacco Use Types Packs/Day Years Used Date Smoking Tobacco: Never Smokeless Tobacco: Never Tobacco Cessation:Counseling Given: Not Answered [facility] Utilities Answer Date Recorded In the past [...] week 05/18/2023 [facility] often [facility] services? More than 4 times per year 05/18/2023 Do you belong to any clubs o r organizations such as jew groups, unions, fraternal or athletic groups, or [...] place to sleep or slept in a senior living (including now)? No 05/18/2023 PHQ-9 Answer Date [...] this topic Medical Devices Explanted Type Area Sccm Administrator Device Identifier Shelf Expiration Date Model / Serial / Lot Stent Explanted:Qty: 1 on 05/26/2023 by Rikki Jasso MD at [facility] Stent Right: Kidney [employer] [id number] 6fr 26cm 145cm Radiopaque Positioner Filiform Flexible Tip - [id number] Implanted:Qty: 1 on 05/26/2023 by Rikki Jasso MD at [facility] Explanted:Qty: 1 on 06/14/2023 by Rikki Jasso MD Right: Kidney [employer] [id number] 01/19/2026 [id number] / / [id number] [employer] Stent Ureteral Set Double Pigtail Radiopaque Tip [employer] [id number] Polyurethane Hydrophilic Coated [id number] - [id number] Implanted:Qty: 1 on 05/18/2023 by Julio Fischer MD at [facility] Explanted:Qty: 1 on 06/14/2023 by Rikki Jasso MD Right: Urethra [employer] [id number] / / [id number] Procedures Procedure Name Priority Date/Time Associated Diagnosis Comments XR SPINE LUMBAR 2 OR 3 VIEWS Schedule Routine, Read Routine (OP Routine) 11/21/2024 9:27 AM CDT Right leg paresthesias SKIN EXCISION Routine 10/17/2024 4:20 PM CDT Vulvar lesion Inclusion cyst of vulva SURGICAL PATHOLOGY Routine 10/17/2024 3: 45 PM CDT Vulvar lesion EGFR Routine 09/20/2024 7:36 AM DICE MANAGER DIFFERENTIAL AUTO Routine 09/20/2024 7:3 6 AM DICE MANAGER LIPID PANEL Routine 09/20/2024 7:36 AM DICE MANAGER Screening, lipid ALBUMIN Routine 09/20/2024 7:36 AM DICE MANAGER VITAMIN B1 Routine 09/20/2024 7:36 AM DICE MANAGER IRON PROFILE W/ IBC Routine 09/20/2024 7 :36 AM DICE MANAGER CBC WITH AUTO DIFFERENTIAL Routine 09/20/2024 7:36 AM DICE MANAGER BASIC METABOLIC PANEL Routine 09/20/2024 7:36 AM DICE MANAGER PREALBUMIN Routine 09/20/2024 7:36 AM DICE MANAGER SCREENING MAMMOGRAM BILATERAL W CLINT Schedule Routine, Read Routine (OP Routine) 07/02/2024 3:03 PM DICE MANAGER Encounter for screening mammogram for malignant neoplasm [...] Jakub Gomez M.D. MF: [email or web address] Report ID: [id number] Reading Location: [id number] Procedure Note Jakub Gomez MD - 11/24/2024 EXAM DESCRIPTION: XR SPINE LUMBAR 2 OR 3 VIEWS REASON FOR STUDY: right leg paresthesia Right sided low back pain and skin sensitivity since 11/13 FINDINGS: Three views submitted with comparison 12/12/2023. No acute fracture. Grade 1 anterolisthesis L4 on L5. Mild L4-D1orthzsnykjrw disc disease. Trip transitional L5 vertebra. IMPRESSION: Mild L4-L5 degenerative disc disease with grade 1 anterolisthesis. THIS IS AN ELECTRONICALLY VERIFIED FINAL REPORT 11/24/2024 12:06 PM - Electronically signed by Jakub Gomez M.D. MF: [email or web address] Report ID: [id number] Reading Location: [id number] Result [facility] Debbie CORONA IMG XR PROCEDURES Final R [...] on a total of 6 lesions. Result [facility] Shantell Echevarria MD DERM PROCEDURE ORDERABLES Final Result * Surgical pathology (10/17/2024 3:45 PM CDT) Tissue (Vulva / Labia Biopsy) 10/17/2024 3:45 PM CDT 10/18/2024 8:16 AM CDT Narrative PATHOLOGY [facility] - 10/21/2024 5:18 PM CDT [facility] Department of Pathology [address] [place] [address] Note to Patients: This report may contain [...] the details. Final Report Patient Name: PAIGE ANTHONY: 1975 (Age: 48) Gender: F Address: [address] [place], [place] [address] Hospital #: [id number] Service: UNKNOWN Location: Patient Type: [facility] SPECIMEN Taken: 10/17/2024 Received: 10/18/2024 [...] cm. Entirely submitted. Labeled A1. Jar [facility]. [facility]/10/18/2024 09:46 ALEX Hendricks, PA [facility] Microscopic slide review and interpretation for this case was performed at [facility], Department of Surgical Pathology, [address] [facility] [place], [id number] [id number] [place] # [id number] us Shantell Echevarria MD LAB PATHOLOGY ORDERABLES F inal Result PATHOLOGY [facility] * eGFR (09/20/2024 7:36 AM DICE MANAGER) eGFR 71 >=60 mL/min/1. 73 m2 Comment: [...] was last reviewed 2021. Testing performed by: [address] [address] Blood 09/20/2024 7:36 AM DICE MANAGER 09/20/2024 8:20 AM DICE MANAGER us Devonte Onofre MD LAB BLOOD ORDERABLES Sherri santoyo Result [facility] Department [place] [address] * Differential, auto (09/20/2024 7:36 AM DICE MANAGER) Neutrophil abs 4.4 1.5 - 6.5 K/cumm Comment:Testing performed by : [address] [address] Imm gran abs 0.0 0.0 - 0.1 K/cumm HARIS Comment:Testing performed by : [address] [address] Lymphocyte abs 1.4 0.8 - 3.3 K/cumm HARIS Comment:Testing performed by : [address] [address] Monocyte abs 0.5 0.2 - 0.8 K/cumm HARIS Comment:Testing performed by : [address] [address] Eosinophil abs 0.2 0.0 - 0.5 K/cumm HARIS Comment:Testing performed by : [address] [address] Basophil abs 0.1 0.0 - 0.1 K/cumm HARIS Comment:Testing performed by : [address] [address] Neutrophil pct 65.9 % [facility] Comment: Interpretive Data Percent cell count reference ranges are not reported, since discordance with absolute values may lead to misinterpretation of CBC data. Current Interpretive Data was last revised on 2017. Testing performed by: [address] [address] Imm gran pct 0.5 % [facility] Comment: Interpretive Data Percent cell count reference ranges are not reported, since discordance with absolute values may lead to misinterpretation of CBC data. Current Interpretive Data was last revised on 2017. Testing performed by: [address] [address] Lymphocyte pct 21.5 % [facility] Comment: Interpretive Data Percent cell count reference ranges are not reported, since discordance with absolute values may lead to misinterpretation of CBC data. Current Interpretive Data was last revised on 2017. Testing performed by: [address] [address] Monocyte pct 7.7 % [facility] Comment: Interpretive Data Percent cell count reference ranges are not reported, since discordance with absolute values may lead to misinterpretation of CBC data. Current Interpretive Data was last revised on 2017. Testing performed by: [address] [address] Eosinophil pct 3.3 % [facility] Comment: Interpretive Data Percent cell count reference ranges are not reported, since discordance with absolute values may lead to misinterpretation of CBC data. Current Interpretive Data was last revised on 2017. Testing performed by: [address] [address] Basophil pct 1.1 % [facility] Comment: Interpretive Data Percent cell count reference ranges are not reported, since discordance with absolute values may lead to misinterpretation of CBC data. Current Interpretive Data was last revised on 2017. Testing performed by: [address] [address] Blood 09/20/2024 7:36 AM DICE MANAGER 09/20/2024 7:36 AM DICE MANAGER us Devonte Onofre MD LAB BLOOD ORDERABLES Sherri l Result Performing Organization Address [facility] Co de Phone Number [facility]0 [facility] [place] [address] * Iron profile w/ IBC (09/20/2024 7:36 AM DICE MANAGER) Pathologist [facility] Iron TNP 35 - 145 mcg/dL Comment:Testing performed by : [address] [address] TIBC See Comment 250 - 400 [facility]INA Comment: Unable to calculate Testing performed by: [address] [address] Transferrin saturation See Comment 20 - 50 HARIS Comment: Unable to calculate Testing performed by: [address] [address] Blood 09/20/2024 7:36 AM DICE MANAGER 09/20/2024 8:20 AM DICE MANAGER Devonte Onofre MD LAB BLOOD ORDERABLES Sherri l Result Performing Organization Address [facility] Co de Phone Number [facility]0 [facility] [place] [address] * (ABNORMAL) CBC with auto differential (09/20/2024 7:36 AM DICE MANAGER) WBC 6.7 3.8 - 9.9 K/cumm Comment:Testing performed by : [address] [address] Hgb 17.4(H) 11.9 - 15.5 g/dL [facility] Comment:Testing performed by : [address] [address] Hct 50.9(H) 35.6 - 45.5 % [facility] Comment:Testing performed by : [address] [address] Plt 209 150 - 400 K/cumm HARIS Comment:Testing performed by : [address] [address] MPV 10.2 9.1 - 12.3 fL HARIS Comment:Testing performed by : [address] [address] RBC 5.68(H) 3.90 - 5.20 M/cumm HARIS Comment:Testing performed by : [address], [address] MCV 89.6 81.3 - 96.4 fL HARIS Comment:Testing performed by : [address], [address] MCH 30.6 27.1 - 33.3 pg HARIS Comment:Testing performed by : [address], [address] MCHC 34.2 32.3 - 35.7 g/dL HARIS Comment:Testing performed by : [address], [address] RDW CV 12.4 11.1 - 14.9 % HARIS Comment:Testing performed by : [address], [address] RDW SD 41.0 35.7 - 48.1 fL [facility]IS Comment:Testing performed by : [address], [address] NRBC abs 0.00 0.00 - 0.01 K/cumm HARIS Comment:Testing performed by : [address], [address] Blood 09/20/2024 7:36 AM DICE MANAGER 09/20/2024 8:21 AM DICE MANAGER us Devonte Onofre MD LAB BLOOD ORDERABLES Sherri santoyo Result [facility] [address] Department of Laboratories [place], [place] [id number] * Vitamin B1 (09/20/2024 7:36 AM DICE MANAGER) Thiamine (Vit B1) 107 70 - 180 nmol/L [facility] Comment: ADDITIONAL INFORMATION This test was developed and its performance characteristics determined by [facility] in a manner consistent with CLIA requirements. This test has not been cleared or approved by the U.S. Food and Drug Administration. Test Performed by: [facility] Laboratories - [facility] [address] [place] [address] Coffee Sampler: Cuate Jackson Ph.D.; CLIA# [id number] Testing performed by: [address] [address] Blood 09/20/2024 7:36 AM DICE MANAGER 09/20/2024 8:20 AM DICE MANAGER Devonte Onofre MD LAB BLOOD ORDERABLES Sherri l Result Performing Organization Address [facility] Co de Phone Number [address] [place] [address] [facility] ref [facility] * Prealbumin (09/20/2024 7:36 AM DICE MANAGER) [facility] Prealbumin 24.3 20.0 - 40.0 mg/dL Blood 09/20/2024 7:36 AM DICE MANAGER 09/20/2024 10:26 AM DICE MANAGER Devonte Onofre MD LAB BLOOD ORDERABLES Sherri l Result Performing Organization Address [facility] Co de Phone Number [address] [place] [address] * Albumin (09/20/2024 7:36 AM DICE MANAGER) [facility] Albumin 4.4 3.5 - 5.0 g/dL Comment:Testing performed by : [address] [address] Blood 09/20/2024 7:36 AM DICE MANAGER 09/20/2024 8:20 AM DICE MANAGER us Devonte Onofre MD LAB BLOOD ORDERABLES Sherri santoyo Result [facility] [address] Department [place] [address] * Lipid panel (09/20/2024 7:36 AM DICE MANAGER) Cholesterol 122 30 - 199 mg/dL Comment: [...] last revised on 2018. Testing performed by: [address] [address] Triglycerides 114 <=149 mg/dL HARIS Comment: Interpretive [...] last revised on 2018. Testing performed by: [address] [address] HDL 46 >=40 mg/dL [facility] Comment: Interpretive [...] last revised on 2018. Testing performed by: [address] [address] LDL, calculated 55 <=129 mg/dL [facility] Comment: [...] last revised on 2024. Testing performed by: [address] [address] Non-HDL Cholesterol 76 mg/dL [facility] Comment: Interpretive [...] last revised on 2018. Testing performed by: [address] [address] Chol/HDL ratio 3 [facility] Comment:Testing performed by : [address] [address] Blood 09/20/2024 7:36 AM DICE MANAGER 09/20/2024 8:21 AM DICE MANAGER us Ceci Max MD LAB BLOOD ORDERABLE S Final Result [facility] [address] Department [place] [address] * Basic metabolic panel (09/20/2024 7:36 AM DICE MANAGER) Sodium 140 135 - 145 mmol/L Comment:Testing performed by : [address] [address] Potassium, pl 4.2 3.3 - 4.9 mmol/L [facility] Comment: Hemolyzed; Potassium value may be falsely elevated by as much as 1.0 mmol/L. Suggest redraw and reanalysis. Testing performed by: [address] [address] Chloride 105 97 - 110 mmol/L HARIS Comment:Testing performed by : [address] [address] CO2 23 22 - 32 mmol/L [facility]IS Comment:Testing performed by : [address] [address] Anion gap 12 2 - 15 mmol/L HARIS Comment:Testing performed by : [address] [address] BUN 8 6 - 25 mg/dL [facility]IS Comment:Testing performed by : [address] [address] Creatinine 0.99 0.60 - 1.10 mg/dL [facility] Comment:Testing performed by : [address] [address] Glucose 84 70 - 199 mg/dL [facility] [...] was last revised 2022. Testing performed by: [facility], [address] [place] [address]., [address] Calcium 9.8 8.5 - 10.3 mg/dL [facility] MEDINA Comment:Testing performed by : [facility], [address] [place] [address]., [address] Blood 09/20/2024 7:36 AM DICE MANAGER 09/20/2024 8:20 AM DICE MANAGER Devonte Onofre MD LAB BLOOD ORDERABLES Sherri santoyo Result [facility] [address] Department of Laboratories [place], [place] [id number] * Screening Mammogram Bilateral W Clint (07/02/2024 3:03 PM DICE MANAGER) Anatomical Region Laterality Modality Breast Bilateral Mammography Impressions 07/02/2024 9:31 PM DICE MANAGER BI-RADS ATLAS category (overall): 2 - Benign There is no mammographic evidence of malignancy. A 1 year screening mammogram is recommended. The patient has been or will be contacted. We recommend annual screening mammography for women at average risk of breast cancer beginning at age 40, based on guidelines of the [employer] (ACR Practice Parameter for the Performance of Screening and Diagnostic Mammography) and [employer]. For women with and elevated risk of breast cancer, please refer to the ACR Practice Parameter for specific screening recommendations. The patient will be entered into a reminder system with a target due date of 1 year for her next screening exam. Narrative 07/02/2024 9:31 PM DICE MANAGER Screening Mammogram Bilateral W Clint: 07/02/24 The [...] been no suspicious change. us Kell [facility] MAMMO PROCEDURES Final Resul t * COLONOSCOPY (11/17/2022 8:21 AM CDT) Anatomical Region Laterality Modality Other Narrative Procedure Note Tommie Chen, - 11/17/2022 8:21 AM CDT [facility] GI ENDOSCOPY Patient Name: Paige Anthony Procedure Date: 11/17/2022 8:21 AM Date of : 1975 Admit Type: Outpatient Age: 47 Gender: Female Attending MD: Tommie Chen D.O. Room: [facility] ENDOSCOPY ROOM 05 Note Status: [...] On: 11/17/2022 8:21 AM Recognized by the [employer] for promoting quality in endoscopy Tommie Chen DO ENDOSCOPY PROCEDURES Fin al Result from Last 3 Months or Most Recently Relevant to Health Maintenance Insurance CLAIMS [facility] CLAIMS [facility] CLAIMS Advance Directives For more information, please contact: [phone] * Full Code (Latest Code Status on File) Date Activated Date Inactivated Comments 05/17/2023 9:57 PM 05/20/2023 10:36 PM Care Teams Paperhanger Relationship Specialty Start Date End Date Ceci Max MD [address] [place] [address] PCP - General Family Medicine 03/09/22
--- OUTSIDE RECORDS SUMMARY | 2024-12-17 02:01 | XMS_ITS | Continuity of Care Document ---
Author Name [facility] Organization [facility] Care Team Providers Care Certified Professional Controller Name Role Phone [facility] Unavailable Unavailable Problems [...] with PCM she finds after moving to [facility]. [facility] HYPOMENORRHEA Active Condition DoD visit for: administrative [...] AMNEAL PHARMACE, 90 ea. BOTTLE Cancele d [id number] : 2023 0 Pharmac y Data Transac tion Service Facilit y METHYLPREDN ISOLONE (methylpred nisolone), 4 MG, TAB DS PK, ORAL, ZYDUS PHARMACEU, 21 ea. DOSE-PACK Active [id number] 2023 21 Pharmac y Data Transac tion Service Facilit y ONDANSETRON HCL (ONDANSETRO N HCL), 4MG, TABLET, ORAL, GLENMARK PHARMA, 30 ea. BOTTLE Active [id number] 4 2023 12 Pharmac y Data Transac [...] Site Reaction Lot Number CVX Code Drug Sign Language Teacher Status Comments Source influenza, injectable, quadrivalent, preservative free 2019 ROB, () Not Given influenza , injectabl e, quadrival ent, preservat hernan free [facility] Influenza, seasonal, injectable, preservative free 2014 CYNTHIA [...] DC Date Status Disposition Source [facility]) OUTPATIENT [id number] cold sx GENIA ROMERO 06/30 Released w/o Limitations [facility](F light Medicin e Clinic) [facility](Fli ght Medicine Clinic) OUTPATIENT [id number] GENIA ROMERO 07/20 Released w/o Limitations [facility](F light Medicin e Clinic) [facility](Opt ometry Clinic) OUTPATIENT [id number] scl VI Manuel I 07/25 Released w/o Limitations [facility](O ptometr y Clinic) [facility](Dci ght Medicine Clinic) OUTPATIENT [id number] rash on rt arm EDVIN MATA 08/21 Released w/o Limitations [facility]) [place] [facility] OUTPATIENT [id number] pelvic pain and hematur ia RAPHAEL GARCIA 11/13 [place]ased w/[place] Limitations [place] [facility] [place] [facility] OUTPATIENT [id number] follow up RAPHAEL GARCIA 11/21 [place]ased w/[place] Limitations [facility] OUTPATIENT [id number] Nutriti on Della g RONNELL Crook 11/23 Released w/o Limitations [facility]) OUTPATIENT [id number] sever back pain YVONNE FLORES 11/25 [place]ased w/[place] Limitations [facility] [place] [facility]) OUTPATIENT [id number] neck discomf ort/hea dache x 1wk ILSA GRIMALDO 01/24 Released w/o Limitations [facility] [place]) OUTPATIENT [id number] neck discomf ort no trauma /injury needs manip PAPITO LUCAS 01/29 Released w/o Limitations [facility] [place] [facility]) OUTPATIENT [id number] severe neck pain,ok per PAPITO Hummel 02/02 Released w/o Limitations [facility] [place] [facility]) OUTPATIENT [id number] NECK ISSUES/ F/U PAPITO LUCAS 02/23 [place] Limitations [place] [facility] [place] [facility]) OUTPATIENT [id number] UTI sx YVONNE FLORES 02/28 [place]ased w/[place] Limitations [place] [facility] [place] [facility]) OUTPATIENT [id number] left shoulde r and left flank pain LILIBETH XAVIER 04/13 [place]ased w/[place] Limitations [place] [facility]) OUTPATIENT [id number] state rn obgyn prob ENID Santiago 05/29 Released w/o Limitations [facility](F P Rok II) th [facility]) TELE CONSULT [id number] please call with results of pregnan cy test done at 0830 PREMA LINDO 05/29 Medical Group(F P Rok I) th Medical Group([facility] carlos eduardo [facility] Contract) TELE CONSULT [id number] Pregnan cy Results SAM NAIK 06/06 Medical Group(F amily Practic e Contrac t) [facility]) OUTPATIENT [id number] Irregul ar Menstru al Cycle BILL SELENA L 06/13 Released w/o Limitations [facility]( yn [facility]) [facility]) TELE CONSULT [id number] test results thyroid blood count jun 14 SELENA KHAN 06/14 Medical Group(F P Rok II) [facility]) TELE CONSULT [id number] results BILL SELENA L 06/15 Medical Group([facility]) [facility]) OUTPATIENT [id number] discuss results SELENA KHAN 06/25 Released w/o Limitations [facility]) [facility]) OUTPATIENT [id number] HYPERLI PIDEMIA ANNA MENENDEZ 06/26 Released w/o Limitations [facility](N utritio nal Medicin e) [facility] Group([facility]) OUTPATIENT [id number] f/u cholest prob CABRERA KUMAR 06/26 Released w/o Limitations [facility](F P Rok II) [facility]) TELE CONSULT [id number] 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 07/06 Released w/o Limitations [facility](P hysical Therapy ) Medical Group(Phy sical Therapy) OUTPATIENT [id number] DIANE TUTTLE P. 07/16 Released w/o Limitations [facility](P hysical Therapy ) [facility] Group(FP Rok II) TELE CONSULT [id number] needs med refill on ortho tricycl en. pt was suppose d to start yesterd frederic LINDO PREMA Dwight 07/23 Medical Group(F P Rok II) Medical Group(FP Rok I) TELE CONSULT [id number] states is suppose d to have blood cholest junaid labs done every 6 wks...n o order in PREMA LINDO Dwight 07/31 Medical Group(F P Rok I) Medical Group(Phy sical Therapy) OUTPATIENT [id number] DIANE TUTTLE 08/09 Released w/o Limitations [facility](P hysical Therapy ) Medical Group(FP Rok II) TELE CONSULT [id number] cholest test liver functio n aug 01 GUICHO FREEMANSYED Quintanilla 08/09 Medical Group(F P Rok II) Medical Group(FP Rok II) TELE CONSULT [id number] returen ed your phone call GUICHO PREMA Dwight 08/13 Medical Group(F P Rok II) Medical Group(Phy sical Therapy) OUTPATIENT [id number] DIANE TUTTLE 08/24 Released w/o Limitations [facility](P hysical Therapy ) Medical Group(Phy sical Therapy) OUTPATIENT [id number] PRESTON RIVER 08/30 Released w/o Limitations [facility](P hysical Therapy ) Medical Group(Phy sical Therapy) OUTPATIENT [id number] PRESTON RIVER 09/04 Released w/o Limitations [facility](P hysical Therapy ) Medical Group(Phy sical Therapy) OUTPATIENT [id number] KAIT MONTGOMERY 09/06 Released w/o Limitations [facility] Group(P hysical Therapy ) Medical Group(FP Rok II) TELE CONSULT [id number] refill ..reque sting call back about mri on knee GUICHO FREEMANSYED Quintanilla 09/06 Medical Group(F P Rok II) Medical Group([facility]) OUTPATIENT [id number] pt st itch on outside , no other symptom s SELENA KHAN 09/07 Released w/o Limitations [facility](G yn Clinic) Medical Group(Phy sical Therapy) OUTPATIENT [id number] FATOU HERRERA 09/11 Released w/o Limitations Medical Group(P hysical Therapy ) Medical Group(FP Rok II) TELE CONSULT [id number] mri result GUICHO PREMA D 09/12 Medical Group(F P Rok II) Medical Group(Phy sical Therapy) OUTPATIENT [id number] FATOU HERRERA 09/13 Released w/o Limitations [facility](P hysical Therapy ) Medical Group(FP Rok II) OUTPATIENT [id number] state knee f/u CABRERA KUMAR Released w/o Limitations Medical Group(F P Rok II) Medical Group(FP Rok II) TELE CONSULT [id number] wants to talk to nurse about paperwo rk for orthope dist about right knee PREMA LINDO D 09/25 Medical Group(F P Rok II) Medical Group([facility]) OUTPATIENT [id number] ANNA MENENDEZ 09/27 Released w/o Limitations Medical Group(N utritio nal Medicin e) Medical Group(FP Rok II) TELE CONSULT [id number] pt needs refills on control and zocor 80mg GUICHOPREMA D 10/15 Medical Group(F P Rok II) Medical Group(FP Rok II) OUTPATIENT [id number] follow up chol CABRERA KUMAR 10/15 Released w/o Limitations Medical Group(F P Rok II) Medical Group(Phy sical Therapy) OUTPATIENT [id number] BROOKE MEYER 10/22 Released w/o Limitations Medical Group(P hysical Therapy ) Medical Group(Phy sical Therapy) OUTPATIENT [id number] YVONNE CORNEJO 10/24 Released w/o Limitations Medical Group(P hysical Therapy ) Medical Group(Phy sical Therapy) OUTPATIENT [id number] YVONNE CORNEJO 10/28 Released w/o Limitations Medical Group(P hysical Therapy ) Medical Group(Phy sical Therapy) OUTPATIENT [id number] GREGORIO MONTGOMERY 10/30 Released w/o Limitations Medical Group(P hysical Therapy ) Medical Group(Phy sical Therapy) OUTPATIENT [id number] KAIT MONTGOMERY 11/04 Released w/o Limitations Medical Group(P hysical Therapy ) Medical Group(Phy sical Therapy) OUTPATIENT [id number] YVONNE CORNEJO 11/06 Released w/o Limitations Medical Group(P hysical Therapy ) Medical Group(Phy sical Therapy) OUTPATIENT [id number] DIANE TUTTLE 11/07 Released w/o Limitations Medical Group(P hysical Therapy ) Medical Group(FP Rok I) TELE CONSULT [id number] naesua, hot cold flashes , tired GUICHO, MAMYE D 11/12 Medical Group(F P Rok I) Medical Group(Phy sical Therapy) OUTPATIENT [id number] FATOU HERRERA 11/13 Released w/o Limitations Medical Group(P hysical Therapy ) Medical Group(FP Rok II) TELE CONSULT [id number] pregnan cy test GUICHO, MAMYE D 11/20 Medical Group(F P Rok II) [employer] [facility])(Gene ral Surgery) OUTPATIENT [id number] Pas entered the order KARRIE ARAGON 01/14 Released w/o Limitations [employer] ([facility])(Ge neral Surgery ) [employer] ([facility])(Gene ral Surgery) OUTPATIENT [id number] excisio n forearm r mass KARRIE ARAGON 01/28 Released w/o Limitations [employer] ([employer])(Ge neral Surgery ) Procedures Combined list of: 1) Procedures from Department of Veterans Affairs facilities going back up to thelast 18 months, not all VA non-surgical procedures are included; 2) All procedures from the Department of Defense facilities. Procedure Procedure Type Code Date Perfomer Comments Sourc e EXCISION, TUMOR, SOFT TISSUE OF FOREARM AND/OR WRIST AREA, SUBCUTANEOUS; LESS THAN 3 CM 01/29/2008 DoD INJECTION(S); SINGLE OR MULTIPLE TRIGGER POINT(S), 1 OR 2 MUSCLE(S) 02/23/2007 [facility] OSTEOPATHIC MANIPULATIVE TREATMENT (OMT); 1-2 BODY REGIONS INVOLVED 02/02/2007 [facility] OSTEOPATHIC MANIPULATIVE TREATMENT (OMT); 1-2 BODY REGIONS INVOLVED 01/29/2007 [facility] MEDICAL NUTRITION THERAPY; GROUP (2 OR MORE INDIVIDUAL(S)), EACH 30 MINUTES 11/23/2006 DoD THERAPEUTIC PROCEDURE, 1 OR MORE AREAS, EACH 15 MINUTES; THERAPEUTIC EXERCISES TO DEVELOP STRENGTH AND ENDURANCE, RANGE OF MOTION AND FLEXIBILITY 11/14/2007 DoD PHYSICAL THERAPY RE-EVALUATION 11/08/2007 DoD APPLICATION OF A MODALITY TO 1 OR MORE AREAS; HOT OR COLD PACKS 11/07/2007 DoD APPLICATION OF A MODALITY TO 1 OR MORE AREAS; HOT OR COLD PACKS 11/05/2007 DoD APPLICATION OF A MODALITY TO 1 OR MORE AREAS; HOT OR COLD PACKS 10/31/2007 DoD APPLICATION OF A MODALITY TO 1 OR MORE AREAS; HOT OR COLD PACKS 10/29/2007 DoD APPLICATION OF A MODALITY TO 1 OR MORE AREAS; HOT OR COLD PACKS 10/25/2007 DoD THERAPEUTIC PROCEDURE, 1 OR MORE AREAS, EACH 15 MINUTES; THERAPEUTIC EXERCISES TO DEVELOP STRENGTH AND ENDURANCE, RANGE OF MOTION AND FLEXIBILITY 2007 DoD MEDICAL NUTRITION THERAPY; RE-ASSESSMENT AND INTERVENTION, INDIVIDUAL, [id number] WITH THE PATIENT, EACH 15 MINUTES 09/27/2007 DoD APPLICATION OF A MODALITY TO 1 OR MORE AREAS; HOT OR COLD PACKS 09/13/2007 DoD APPLICATION OF A MODALITY TO 1 OR MORE AREAS; HOT OR COLD PACKS 09/11/2007 DoD TISSUE EXAMINATION BY JG SLIDE OF SAMPLES FROM SKIN, HAIR, OR NAILS FOR FUNGI OR ECTOPARASITE OVA OR MITES (EG, SCABIES) 09/07/2007 DoD APPLICATION OF A MODALITY TO 1 OR MORE AREAS; HOT OR COLD PACKS 09/06/2007 DoD APPLICATION OF A MODALITY TO 1 OR MORE AREAS; HOT OR COLD PACKS 09/04/2007 DoD APPLICATION OF A MODALITY TO 1 OR MORE AREAS; HOT OR COLD PACKS 08/30/2007 DoD PHYSICAL THERAPY EVALUATION 08/24/2007 DoD PHYSICAL THERAPY RE-EVALUATION 08/09/2007 DoD PHYSICAL THERAPY RE-EVALUATION 07/16/2007 DoD THERAPEUTIC PROCEDURE, 1 OR MORE AREAS, EACH 15 MINUTES; THERAPEUTIC EXERCISES TO DEVELOP STRENGTH AND ENDURANCE, RANGE OF MOTION AND FLEXIBILITY 07/06/2007 DoD MEDICAL NUTRITION THERAPY; GROUP (2 OR MORE INDIVIDUAL(S)), EACH 30 MINUTES 06/26/2007 [facility] OPHTHALMOLOGICAL SERVICES: MEDICAL EXAMINATION AND EVALUATION WITH INITIATION OF DIAGNOSTIC AND TREATMENT PROGRAM; COMPREHENSIVE, NEW PATIENT, 1 OR MORE VISITS 07/25/2006 DoD Social History Combined list of available smoking, tobacco, and other social history from Department of Defense and Veterans Affairs facilities. Social History Type Response Date Comment Sour e This section is an empty social history section. DoD
--- OUTSIDE RECORDS SUMMARY | 2024-12-17 02:01 | XMS_ITS | Patient Health Record ---
Author Organization 1 OF Lalito ferreira [facility] Address [address] [address] Care Team Providers Care Chief Jailer Name Role Phone UNKNOWN, UNKNOWN Primary Care Provider Unavailab Sarah Parker Unavailable [phone] Allergies Allergen (clinical drug ingredient) Drug/Non Drug [...] Date Provider Diagnosis 1 OF Lalito Silva [facility] [address] [address] 03/13/2024 Sarah Triana Callus of foot L84 [...] Insured Coverage Start Date Coverage End Date [facility] [address] [place] [address] [id number] Karrie Rea Self - patient is the insured Medical (General) History Medical History History ICD Code Anxiety disorder, Arthritis, Depression ,High cholesterol, Kidney stones Surgical History Surgery Date(Month/Year) B/L ingrown toenail removals 2013
--- OUTSIDE RECORDS SUMMARY | 2024-12-17 02:01 | XMS_ITS | Encounter Summary ---
Author Organization [facility] Healthcare Address [address] [place] [address] Care Team Providers Care Image Scientist Name Role Phone Ceci Max MD Primary Care Provi sneha Reason for Referral * Consultation (Routine) - Pending Review Specialty Diagnoses / Procedures Referred By Contac t Referred To Contact Neurology Diagnoses Right leg paresthesias Debbie Patel PA [address] [place] [address] Phone: tel: fax: [facility] Medical [facility] Neurology [facility] [address] [address] Phone: tel: fax: Referral ID Status Reason Start Date Expiration Date Visits Requested Visits Authorized [id number] Pending Review Specialty Services Required 11/29/2024 12/29/2025 6 6 Question Answer Please select the performing region: [facility] Medical Group [[id number]] Please select the performing department: [id number] [[phone]] # of visits: 6 Encounter Details Date Type Department Care Team (Late st Contact Info) Description 11/25/2024 Results Follow-Up [facility] Medical Group Family Medicine [address] [address] Debbie Patel PA [address] [place], [place] [id number] XR Spine Lumbar 2 Or 3 Vw Social History Tobacco Use Types Packs/Day Years Used Date Smoking Tobacco: Never Smokeless Tobacco: Never [facility] Utilities Answer Date Recorded In the [...] any clubs o r organizations such as sikh groups, unions, fraternal or athletic groups, or [...] place to sleep or slept in a fpc (including now)? No 05/18/2023 PHQ-9 Answer Date [...] sensation documented in this encounter Care Teams Image Scientist Relationship Specialty Start Date End Date Ceci Max MD [facility] [address] [place] [address] PCP - General Family Medicine 03/09/22 documented as of this encounter
--- OUTSIDE RECORDS SUMMARY | 2024-12-17 02:01 | XMS_ITS | Encounter Summary ---
Author Organization [facility] Healthcare Address [address] [place] [address] Care Team Providers Care Catering Service Manager Name Role Phone Ceci Max MD Primary Care Provi sneha Encounter Details Date Type Department Care Team (Late st Contact Info) Description 12/08/2023 Telephone [facility] Medical Group Family Medicine [address] [address] Ceci Max MD [address] [address] Social History Tobacco Use Types Packs/Day Years Used Date Smoking Tobacco: Never Smokeless Tobacco: Never [facility] Utilities Answer Date Recorded In the past 12 months has [employer] electric, gas, oil, or water company threatened [...] often do you attend chur ch or advent services? More than 4 times per year 05/18/2023 Do you belong to any clubs o r organizations such as confucianist groups, unions, fraternal or athletic groups, or [...] place to sleep or slept in a long term (including now)? No 05/18/2023 PHQ-9 Answer Date [...] on file documented as of this encounter Functional Status * Audit-C Score Answer Date of Assessment Author 1 11/19/2024 2:53 PM CDT Jay Valles LPN * Question Answer Date of Assessment Author Q1: How often do you have a drink containing alcohol? Monthly or less 11/19/2024 2:53 PM CDT Leah Valles L PN Q2: How many drinks containing alcohol do you have on a typical day when you are drinking? 1 or 2 11/19/2024 2:53 PM CDT Leah Valles L PN Q3: How often do you have six or more drinks on one occasion? Never 11/19/2024 2:53 PM CDT Leah Valles L PN documented as of this encounter Plan of Treatment Not on file documented as of this encounter Visit Diagnoses Not on filedocumented in this encounter Care Teams Catering Service Manager Relationship Specialty Start Date End Date Ceci Max MD [address] [place] [address] PCP - General Family Medicine 03/09/22 documented as of this encounter
--- OUTSIDE RECORDS SUMMARY | 2024-12-17 02:01 | XMS_ITS | Encounter Summary ---
Author Organization [facility] Healthcare Address [address] [place] [address] Care Team Providers Care Ophthalmologist Retina Specialist Name Role Phone Ceci Max MD Primary Care Provi sneha Encounter Details Date Type Department Care Team ([facility] st Contact Info) Description 10/21/2024 Results Follow-Up [facility] Medical Group Obstetrical Gynecology [address] [facility] [address] [place] [address] Shantell Echevarria MD [address] [facility] [address] [place] [address] Surgical pathology Social History Tobacco Use Types Packs/Day Years Used Date Smoking Tobacco: Never Smokeless Tobacco: Never [facility] Utilities Answer Date Recorded In the past 12 months has [employer] electric, gas, oil, or water company threatened [...] often do you attend chur ch or latter day services? More than 4 times per year [...] place to sleep or slept in a half-way (including now)? No 05/18/2023 PHQ-9 Answer Date [...] on filedocumented in this encounter Care Teams Ophthalmologist Retina Specialist Relationship Specialty Start Date End Date Ceci Max MD [address] [place] [address] PCP - General Family Medicine 03/09/22 documented as of this encounter
--- OUTSIDE RECORDS SUMMARY | 2024-12-17 02:01 | XMS_ITS | Referral Summary ---
Author Organization [address] Address [address] [place] [id number] Care Team Providers Care Graduate Internship Name Role Phone Ceci Max MD Primary Care Provi sneha Encounters Date Type Department Care Team Description 12/01/[address] [phone] Debbie Patel PA 11/25/2024 Results Follow-Up [address] [phone] Debbie Patel PA XR Spine Lumbar 2 Or 3 Vw 11/21/2024 9:10 AM CDT - 11/21/2024 11:59 PM CDT Hospital Encounter [facility] Diagnostic Imaging [address] [place] [address] Right leg paresthesias Discharge Disposition: Discharge to home or self care 11/19/2024 3:00 PM CDT Office Visit [address] [phone] Debbie Patel PA Right leg paresthesias (Primary Dx); Chronic bilateral low back pain, unspecified whether sciatica present; Overweight (BMI 25.0-29.9) 11/01/2024 7:45 AM CDT Office Visit [address] [phone] Ceci Max MD Vulvar lesion (Primary Dx); Pain of left calf; Overweight (BMI 25.0-29.9); History of obesity; Degenerative disc disease, thoracic 10/21/2024 Results Follow-Up [facility] Obstetrical Gynecology [address] [facility] [address] [place] [address] Shantell Echevarria MD Surgical pathology 10/17/2024 5:33 PM CDT - 10/17/2024 11:59 PM CDT Hospital Encounter [facility] [address] [place] [address] Vulvar lesion Discharge Disposition: Discharge to home or self care 10/17/2024 3:30 PM CDT Office Visit [facility] Obstetrical Gynecology [address] [facility] [address] [place] [address] Shantell Echevarria MD Inclusion cyst of vulva (Primary Dx); Vulvar lesion 09/20/2024 Results Follow-Up [facility] Family Medicine [address] [phone] Ceci Max MD Lipid panel 09/20/2024 7:35 AM SPECIAL ED ASSISTANT Lab [facility] [address] [place] [address] 09/20/2024 7:20 AM SPECIAL ED ASSISTANT Lab [facility] [address] [place] [address] Screening, lipid from Last 3 Months Allergies [...] spasms Assessment & Plan (07/04/2024 7:48 AM SPECIAL ED ASSISTANT): Chronic. Stable. Continue to follow with chiropractor, massage and personal development coach. Hypercalciuria 12/07/2023 Assessment & Plan (07/04/2024 7:49 AM SPECIAL ED ASSISTANT): Chronic. Continue to follow with Nephrology. Maintain [...] 05/11/2023 Assessment & Plan (07/04/2024 7:49 AM SPECIAL ED ASSISTANT): No stone passage since 2022. Monitor Assessment & Plan (06/02/2023 11:19 AM SPECIAL ED ASSISTANT): Acute, but will be chronic Managed by [...] (10/24/2022): Added automatically from request for surgery [id number] Overweight (BMI 25.0-29.9) 08/09/2022 Assessment & Plan (11/19/2024 4:12 PM CDT): Assessment & Plan (11/01/2024 8:09 AM CDT): Chronic, stable BMI Follow-up includes: education provided. Assessment & Plan (07/04/2024 7:49 AM SPECIAL ED ASSISTANT): Down 10 lbs with Zepbound. BMI 29. Continue Mckinney bound 5 mg, no further increase at this time. Assessment & Plan (12/07/2023 11:35 AM CDT): BMI Follow-up includes: education provided. Assessment & Plan (06/02/2023 1:07 PM SPECIAL ED ASSISTANT): Chronic, stable BMI Follow-up includes: nutrition counseling. Abnormal weight gain 08/09/2022 Assessment & Plan (06/02/2023 11:18 AM SPECIAL ED ASSISTANT): Chronic, stable We reviewed her insurance and medications We discussed healthy habits, and options for weight loss Given she is overweight, encouraged to continue healthy changes Call for questions Mixed hyperlipidemia 04/12/2022 Assessment & Plan (07/04/2024 7:49 AM SPECIAL ED ASSISTANT): Chronic. Stable. Continue rosuvastatin Assessment & Plan (05/17/2023 8:45 PM CDT): Continue statin Check thyroid function and lipid profile Assessment & Plan (04/12/2022 9:41 AM CDT): Chronic, stable Continue crestor Labs ordered Update me with any changes or concerns Postmenopausal 04/12/2022 Assessment & Plan (07/04/2024 7:50 AM SPECIAL ED ASSISTANT): Status total hysterectomy. Continue to follow with [...] yearly Assessment & Plan (07/04/2024 7:50 AM SPECIAL ED ASSISTANT): PMH: 07/04/24 Last pap: s/p total hysterectomy [...] Tobacco: Never Tobacco Cessation:Counseling Given: Not Answered [facility] Utilities Answer Date Recorded In the past 12 months has [employer], gas, oil, or water [employer] threatened to shut off services in your [...] often do you attend chur ch or voodoo services? More than 4 times per year 05/18/2023 Do you belong to any clubs o r organizations such as latter-day groups, unions, fraternal or athletic groups, or [...] on file Medical Devices Explanted Type Area Home Security Alarm Installer Device Identifier Shelf Expiration Date Model / Serial / Lot Stent Explanted:Qty: 1 on 05/26/2023 by Rikki Jasso MD at [facility] Stent Right: Kidney [employer] [id number] 6fr 26cm 145cm Radiopaque Positioner Filiform Flexible Tip - [id number] Implanted:Qty: 1 on 05/26/2023 by Rikki Jasso MD at [facility] Explanted:Qty: 1 on 06/14/2023 by Rikki Jasso MD Right: Kidney [employer] [id number] 01/19/2026 [id number] / / [id number] [employer] Stent Ureteral Set Double Pigtail Radiopaque Tip [employer] [id number] Polyurethane Hydrophilic Coated [id number] - [id number] Implanted:Qty: 1 on 05/18/2023 by Julio Fischer MD at [facility] Explanted:Qty: 1 on 06/14/2023 by Rikki Jasso MD Right: Urethra [employer] [id number] / / [id number] Procedures Procedure Name Priority Date/Time Associated Diagnosis Comments XR SPINE LUMBAR 2 OR 3 VIEWS Schedule Routine, Read Routine (OP Routine) 11/21/2024 9:27 AM CDT Right leg paresthesias SKIN EXCISION Routine 10/17/2024 4:20 PM CDT Vulvar lesion Inclusion cyst of vulva SURGICAL PATHOLOGY Routine 10/17/2024 3: 45 PM CDT Vulvar lesion EGFR Routine 09/20/2024 7:36 AM SPECIAL ED ASSISTANT DIFFERENTIAL AUTO Routine 09/20/2024 7:3 6 AM SPECIAL ED ASSISTANT LIPID PANEL Routine 09/20/2024 7:36 AM SPECIAL ED ASSISTANT Screening, lipid ALBUMIN Routine 09/20/2024 7:36 AM SPECIAL ED ASSISTANT VITAMIN B1 Routine 09/20/2024 7:36 AM SPECIAL ED ASSISTANT IRON PROFILE W/ IBC Routine 09/20/2024 7 :36 AM SPECIAL ED ASSISTANT CBC WITH AUTO DIFFERENTIAL Routine 09/20/2024 7:36 AM SPECIAL ED ASSISTANT BASIC METABOLIC PANEL Routine 09/20/2024 7:36 AM SPECIAL ED ASSISTANT PREALBUMIN Routine 09/20/2024 7:36 AM SPECIAL ED ASSISTANT SCREENING MAMMOGRAM BILATERAL W CLINT Schedule Routine, Read Routine (OP Routine) 07/02/2024 3:03 PM SPECIAL ED ASSISTANT Encounter for screening mammogram for malignant neoplasm [...] Jakub Gomez M.D. MF: [email or web address] Report ID: [id number] Reading Location: [id number] Procedure Note Jakub Gomez MD - 11/24/2024 EXAM DESCRIPTION: XR SPINE LUMBAR 2 OR 3 VIEWS REASON FOR STUDY: right leg paresthesia Right sided low back pain and skin sensitivity since 11/13 FINDINGS: Three views submitted with comparison 12/12/2023. No acute fracture. Grade 1 anterolisthesis L4 on L5. Mild L4-C4qzjbflnjljjt disc disease. Trip transitional L5 vertebra. IMPRESSION: Mild L4-L5 degenerative disc disease with grade 1 anterolisthesis. THIS IS AN ELECTRONICALLY VERIFIED FINAL REPORT 11/24/2024 12:06 PM - Electronically signed by Jakub Gomez M.D. MF: Report ID: [id number] Reading Location: [id number] Debbie CORONA IMG XR PROCEDURES Final R [...] CDT 10/18/2024 8:16 AM CDT Narrative PATHOLOGY [facility] - 10/21/2024 5:18 PM CDT [facility] Department of Pathology [address] [place] [address] Note to Patients: This report may contain [...] : 1975 (Age: 48) Gender: F Address: [address] [place] [address] Hospital #: [id number] Service: UNKNOWN Location: [facility] Taken: 10/17/2024 Received: 10/18/2024 Accessioned: 10/18/2024 [...] Jar 0. jjmhb/10/18/2024 09:46 ALEX Hendricks, [facility] Microscopic slide review and interpretation for this case was performed at [facility], Department of Surgical Pathology, [address] [facility] [place], [place] [id number], [place] [address] CLIA # [id number] us Shantell Echevarria MD LAB PATHOLOGY ORDERABLES F inal Result PATHOLOGY [facility] * eGFR (09/20/2024 7:36 AM SPECIAL ED ASSISTANT) eGFR 71 >=60 mL/min/1. 73 m2 Comment: [...] was last reviewed 2021. Testing performed by: [facility], [address] [place] [address]., [address] Blood 09/20/2024 7:36 AM SPECIAL ED ASSISTANT 09/20/2024 8:20 AM SPECIAL ED ASSISTANT Devonte Onofre MD LAB BLOOD ORDERABLES Sherri santoyo Result [facility] [address] [facility] Department [place] [address] * Differential, auto (09/20/2024 7:36 AM SPECIAL ED ASSISTANT) Neutrophil abs 4.4 1.5 - 6.5 K/cumm Comment:Testing performed by : [address] [address] Imm gran abs 0.0 0.0 - 0.1 K/cumm HARIS Comment:Testing performed by : [address] [address] Lymphocyte abs 1.4 0.8 - 3.3 K/cumm HARIS Comment:Testing performed by : [address] [address] Monocyte abs 0.5 0.2 - 0.8 K/cumm HARIS Comment:Testing performed by : [address] [address] Eosinophil abs 0.2 0.0 - 0.5 K/cumm HARIS Comment:Testing performed by : [address] [address] Basophil abs 0.1 0.0 - 0.1 K/cumm HARIS Comment:Testing performed by : [address] [address] Neutrophil pct 65.9 % HARIS Comment: Interpretive Data Percent cell count reference ranges are not reported, since discordance with absolute values may lead to misinterpretation of CBC data. Current Interpretive Data was last revised on 2017. Testing performed by: [address] [address] Imm gran pct 0.5 % HARIS Comment: Interpretive Data Percent cell count reference ranges are not reported, since discordance with absolute values may lead to misinterpretation of CBC data. Current Interpretive Data was last revised on 2017. Testing performed by: [address] [address] Lymphocyte pct 21.5 % HARIS Comment: Interpretive Data Percent cell count reference ranges are not reported, since discordance with absolute values may lead to misinterpretation of CBC data. Current Interpretive Data was last revised on 2017. Testing performed by: [address] [address] Monocyte pct 7.7 % [facility] Comment: Interpretive Data Percent cell count reference ranges are not reported, since discordance with absolute values may lead to misinterpretation of CBC data. Current Interpretive Data was last revised on 2017. Testing performed by: [address] [address] Eosinophil pct 3.3 % HARIS Comment: Interpretive Data Percent cell count reference ranges are not reported, since discordance with absolute values may lead to misinterpretation of CBC data. Current Interpretive Data was last revised on 2017. Testing performed by: [address] [address] Basophil pct 1.1 % [facility] Comment: Interpretive Data Percent cell count reference ranges are not reported, since discordance with absolute values may lead to misinterpretation of CBC data. Current Interpretive Data was last revised on 2017. Testing performed by: [address] [address] Blood 09/20/2024 7:36 AM SPECIAL ED ASSISTANT 09/20/2024 7:36 AM SPECIAL ED ASSISTANT Devonte Onofre MD LAB BLOOD ORDERABLES Sherri santoyo Result [facility] [address] [facility] Department of Laboratories [place], [place] [id number] * Iron profile w/ IBC (09/20/2024 7:36 AM SPECIAL ED ASSISTANT) Iron TNP 35 - 145 mcg/dL Comment:Testing performed by : [address] [address] TIBC See Comment 250 - 400 HARIS Comment: Unable to calculate Testing performed by: [address] [address] Transferrin saturation See Comment 20 - 50 HARIS Comment: Unable to calculate Testing performed by: [address] [address] Blood 09/20/2024 7:36 AM SPECIAL ED ASSISTANT 09/20/2024 8:20 AM SPECIAL ED ASSISTANT us Devonte Onofre MD LAB BLOOD ORDERABLES Sherri santoyo Result [facility] [address] [facility] Department [place] [address] * (ABNORMAL) CBC with auto differential (09/20/2024 7:36 AM SPECIAL ED ASSISTANT) WBC 6.7 3.8 - 9.9 K/cumm Comment:Testing performed by : [address] [address] Hgb 17.4(H) 11.9 - 15.5 g/dL HARIS Comment:Testing performed by : [address] [address] Hct 50.9(H) 35.6 - 45.5 % HARIS Comment:Testing performed by : [address] [address] Plt 209 150 - 400 K/cumm HARIS MEDINA Comment:Testing performed by : [address] [address] MPV 10.2 9.1 - 12.3 fL [facility] MEDINA Comment:Testing performed by : [address] [address] RBC 5.68(H) 3.90 - 5.20 M/cumm [facility] MEDINA Comment:Testing performed by : [address] [address] MCV 89.6 81.3 - 96.4 fL [facility] MEDINA Comment:Testing performed by : [address] [address] MCH 30.6 27.1 - 33.3 pg [facility] MEDINA Comment:Testing performed by : [address] [place] [address] MCHC 34.2 32.3 - 35.7 g/dL [facility] MEDINA Comment:Testing performed by : [facility], [address] [place] [address]., [address] RDW CV 12.4 11.1 - 14.9 % [facility] MEDINA Comment:Testing performed by : [facility], [address] [place] [address]., [address] RDW SD 41.0 35.7 - 48.1 fL [facility] MEDINA Comment:Testing performed by : [facility], [address] [place] [address]., [address] NRBC abs 0.00 0.00 - 0.01 K/cumm HARIS Comment:Testing performed by : [address] [address] Blood 09/20/2024 7:36 AM SPECIAL ED ASSISTANT 09/20/2024 8:21 AM SPECIAL ED ASSISTANT Devonte Onofre MD LAB BLOOD ORDERABLES Sherri l Result [place] [id number] [facility] Department [place] [address] * Vitamin B1 (09/20/2024 7:36 AM SPECIAL ED ASSISTANT) [facility] Thiamine (Vit B1) 107 70 - 180 nmol/L [facility] Comment: ADDITIONAL INFORMATION This test was developed and its performance characteristics determined by [facility] in a manner consistent with CLIA requirements. This test has not been cleared or approved by the U.S. Food and Drug Administration. Test Performed by: [facility] - [address] [address] Operating System Designer: Cuate Jackson Ph.D.; CLIA# [id number] Testing performed by: [address] [address] Blood 09/20/2024 7:36 AM SPECIAL ED ASSISTANT 09/20/2024 8:20 AM SPECIAL ED ASSISTANT Devonte Onofre MD LAB BLOOD ORDERABLES Sherri l Result Performing Organization Address City/[facility] Co de Phone Number [address] [employer] [place] [address] [facility] * Prealbumin (09/20/2024 7:36 AM SPECIAL ED ASSISTANT) Prealbumin 24.3 20.0 - 40.0 mg/dL Blood 09/20/2024 7:36 AM SPECIAL ED ASSISTANT 09/20/2024 10:26 AM SPECIAL ED ASSISTANT Devonte Onofre MD LAB BLOOD ORDERABLES Sherri l Result Performing Organization Address [facility] Co de Phone Number [address] [address] * Albumin (09/20/2024 7:36 AM SPECIAL ED ASSISTANT) Albumin 4.4 3.5 - 5.0 g/dL Comment:Testing performed by : [facility], [address] [place] [address]., [address] Blood 09/20/2024 7:36 AM SPECIAL ED ASSISTANT 09/20/2024 8:20 AM SPECIAL ED ASSISTANT Devonte Onofre MD LAB BLOOD ORDERABLES Sherri l Result Performing Organization Address [facility] Co de Phone Number [address] [employer] [place] [address] * Lipid panel (09/20/2024 7:36 AM SPECIAL ED ASSISTANT) Cholesterol 122 30 - 199 mg/dL Comment: [...] last revised on 2018. Testing performed by: [address] [address] Triglycerides 114 <=149 mg/dL [facility]IS Comment: Interpretive [...] last revised on 2018. Testing performed by: [address] [address] HDL 46 >=40 mg/dL [facility] Comment: Interpretive [...] last revised on 2018. Testing performed by: [address] [address] LDL, calculated 55 <=129 mg/dL [facility] Comment: Interpretive Data Ages < or = 19 years Acceptable: <110 mg/dL Borderline high: 110-129 mg/dL High: >or= 130 mg/dL Ages > or = 20 years Optimal: <100 mg/dL Near optimal: 100-129 mg/dL Borderline high: 130-159 mg/dL High: >160 mg/dL Calculated using the Corona LDL-C estimating equation. This equation was implemented on 2024. Prior to this date LDL-C was estimated using the Friedewald equation. Literature References: 1. Expert Panel on Integrated Guidelines for Cardiovascular Health and Risk Reduction in Children and Adolescents. Pediatrics 2011;128:S213 2. NCEP Expert Panel. Circulation 2004;110:227 3. Cj Vigil et al. DANILO Cardiol. 2019November 14;5(5):540-548. doi: 10.1001/jamacardio.2020.0013 Current Interpretive Data was last revised on 2024. Testing performed by: [address] [address] Non-HDL Cholesterol 76 mg/dL [facility] MEDINA Comment: [...] last revised on 2018. Testing performed by: [address] [address] Chol/HDL ratio 3 [facility] MEDINA Comment:Testing performed by : [address] [address] Blood 09/20/2024 7:36 AM SPECIAL ED ASSISTANT 09/20/2024 8:21 AM SPECIAL ED ASSISTANT us Ceci Max MD LAB BLOOD ORDERABLE S Final Result [facility] [address] [facility] Department [place] [address] * Basic metabolic panel (09/20/2024 7:36 AM SPECIAL ED ASSISTANT) [facility] Signature Sodium 140 135 - 145 mmol/L Comment:Testing performed by : [address] [address] Potassium, pl 4.2 3.3 - 4.9 mmol/L [facility] Comment: Hemolyzed; Potassium value may be falsely elevated by as much as 1.0 mmol/L. Suggest redraw and reanalysis. Testing performed by: [address], [place]., [address] Chloride 105 97 - 110 mmol/L [facility] Comment:Testing performed by : [address], [place]., [address] CO2 23 22 - 32 mmol/L [facility] Comment:Testing performed by : [address], [place]., [address] Anion gap 12 2 - 15 mmol/L [facility] Comment:Testing performed by : [address], [place]., [address] BUN 8 6 - 25 mg/dL [facility] Comment:Testing performed by : [address], [place]., [address] Creatinine 0.99 0.60 - 1.10 mg/dL [facility] Comment:Testing performed by : [address], [place]., [address] Glucose 84 70 - 199 mg/dL [facility] Comment: Interpretive Data Fasting glucose >/= 126 [...] was last revised 2022. Testing performed by: [address] [address] Calcium 9.8 8.5 - 10.3 mg/dL [facility] Comment:Testing performed by : [address], [place]., [address] Blood 09/20/2024 7:36 AM SPECIAL ED ASSISTANT 09/20/2024 8:20 AM SPECIAL ED ASSISTANT us Devonte Onofre MD LAB BLOOD ORDERABLES Sherri santoyo Result [facility] [address] [facility] Department [place] [address] * Screening Mammogram Bilateral W Clint (07/02/2024 3:03 PM SPECIAL ED ASSISTANT) Anatomical Region Laterality Modality Breast Bilateral Mammography Impressions 07/02/2024 9:31 PM SPECIAL ED ASSISTANT BI-RADS ATLAS category (overall): 2 - Benign There is no mammographic evidence of malignancy. A 1 year screening mammogram is recommended. The patient has been or will be contacted. We recommend annual screening mammography for women at average risk of breast cancer beginning at age 40, based on guidelines of the [employer] (ACR Practice Parameter for the Performance of Screening and Diagnostic Mammography) and [employer]. For women with and elevated risk of breast cancer, please refer to the ACR Practice Parameter for specific screening recommendations. The patient will be entered into a reminder system with a target due date of 1 year for her next screening exam. Narrative 07/02/2024 9:31 PM SPECIAL ED ASSISTANT Screening Mammogram Bilateral W Clint: 07/02/24 The [...] breast. There has been no suspicious change. Kell [facility]ONA IMG MAMMO PROCEDURES Final Resul t * COLONOSCOPY (11/17/2022 8:21 AM CDT) Anatomical Region Laterality Modality Other Narrative Procedure Note Tommie Chen DO - 11/17/2022 8:[address] [facility] Patient Name: Paige Anthony Procedure Date: 11/17/2022 8:21 AM Date of : 1975 Admit Type: Outpatient Age: 47 Gender: Female Attending MD: Tommie Chen D.O. [facility] 05 Note Status: Finalized Procedure: [...] On: 11/17/2022 8:21 AM Recognized by the [employer] for promoting quality in endoscopy Tommie Chen DO ENDOSCOPY PROCEDURES Fin al Result from Last 3 Months or Most Recently Relevant to Health Maintenance Insurance [facility] CLAIMS [facility] CLAIMS [facility] CLAIMS Advance Directives For more information, please contact: [phone] * Full Code (Latest Code Status on File) Date Activated Date Inactivated Comments 05/17/2023 9:57 PM 05/20/2023 10:36 PM Care Teams Graduate Internship Relationship Specialty Start Date End Date Ceci Max MD [facility] [address] [place] [address] PCP - General Family Medicine 03/09/22
--- NOTE | 2024-12-17 07:09 | WPDHPUPDATE1 ---
History and Physical Update Update Date/Time: 12/17/24 07:09 History and Physical has been reviewed, including an updated exam of the patient. There are NO changes in the patient's condition. Risks, benefits, and alternatives have been discussed and questions answered. Patient agrees to proceed with procedure.
--- NOTE | 2024-12-17 07:12 | W.PM.PROC2 ---
Procedure Note - Detailed Date of Procedure 12/17/24 Pre-op Diagnosis Micromastia Post-op Diagnosis Same Procedure Performed Bilateral breast augmentation with IMF revision Surgeon Devonte Onofre MD Anesthesia General Findings Bilateral Shu Rashid SoftTouch 485 cc Right: REF# [id number] SN [id number] Left: REF# [id number] SN [id number] Description of Procedure She is here today for bilateral breast augmentation. Previously and again today the risks, benefits, alternatives were discussed in extensive detail. I wanted her to be very realistic about the risks involved as well as expectations. We discussed aftercare and what to monitor for. Made sure answered all of her questions to her satisfaction today and consent was obtained. Marked in the preoperative holding area with their verification. The patient was taken to the operating room placed supine on the operating table. Anesthesia was provided by anesthesiology. A surgical time-out was taken. We cleansed the skin and 1% lidocaine and 0.25% Marcaine with epinephrine was used anesthetize as a field block. She was prepped and draped in a standard sterile fashion. Tegaderm nipple Palencia were placed. A 15 blade used to make an incision along the inframammary fold. Dissection was continued at 45 degree angle until the chest wall as identified. I incised the pectoralis major along its inferior border and completely released the inferior border leaving the medial border intact. I created a subpectoral pocket in the appropriate dimensions based on our preoperative planning for the implant. I then copiously irrigated with saline solution and verified a strict hemostasis. Next the use a triple antibiotic and Betadine containing solution to irrigate the pocket. I washed my gloves with the triple antibiotic and Betadine solution. We washed the implant immediately upon opening it with this solution and only opened it when we needed it. I used implant funnel and no-touch technique. The implant was introduced into the pocket using the funnel. Having verified positioning of the implant this was closed using 2-0 PDS. I placed her in a sitting position and verified my nipple to fold distance. Placed supine and a 10 blade was used to excise the IMF. I closed with 2-0 PDS and placed in a sitting position to verify. Placed supine and closed with 3-0 strattafix, 4-0 Monocryl followed by tissue glue. Fluffs and surgical bra were placed. Patient was awoke and taken to PACU without difficulty. All instrument sponge counts were correct at the end of the case. Estimated Blood Loss 20 Drains No Packing No Pathology None sent Complications No immediate complications Condition Stable Disposition PACU
--- NOTE | 2024-12-17 07:21 | P.PNAN_ITS ---
Anes - Initial Pre Proc Eval Procedure: Operation Date: 12/17/24 08:30 Proposed Procedures p Bilateral Breast Augmentation, Bilateral Inframammary Scar Revision - Devonte Onofre MD Date/Time: 12/17/24 07:21 Surgeon: Devonte Onofre MD Pre Op Diagnosis: Micromastia Patient Data Age: 49 Gender: F Height: 1.73 m Weight: 73.7 kg Allergies Allergy/AdvReac Type Severity Reaction Status Date / Time Penicillins Allergy Rash Verified 12/10/24 14:22 Skin Glue Allergy Mild Itching Uncoded 12/10/24 14:22 Home Medications ?Medication ?Instructions ?Recorded ?Confirmed ?Type progesterone micronized 200 mg 200 mg PO HS 06/06/23 12/10/24 History capsule rosuvastatin 40 mg tablet 40 mg PO DAILY 06/06/23 12/10/24 History meloxicam 15 mg tablet 15 mg PO DAILY PRN arthritis 12/10/24 12/10/24 History thiamine HCl (vitamin B1) PO DAILY 12/10/24 History tirzepatide (weight loss) 5 mg/0.5 5 mg subcut WEEKLY weight loss 12/10/24 12/10/24 History mL subcutaneous pen injector (Zepbound) Patient hx anesthesia problems: none Family hx anesthesia problems: none Results Review: All pre-operative results and documents have been reviewed as part of the pre-operative evaluation. [facility] Past Medical History Medical History (Updated 12/16/24 @ 15:44 by Obed Ramon DO) History of suicide attempt NATHEN (obstructive sleep apnea) Asperger disorder Social History Social History Years smoked: 0.1 Smoking status: Former smoker Tobacco type: cigarettes Second hand tobacco smoke exposure: No Smoking end date: 10/14/94 Additional smoking assessment comments: smoked for a month only and passed out Alcohol intake: current Alcohol use details: very rarely Substance use: never Substance use type: does not use Living arrangements: with family Spiritual care concerns: No Anes - Eval Final PreProcedure Day of Procedure 12/17/24 07:21 Patient weight: normal Heart: regular rate and rhythm Lungs: clear to auscultation Airway: Mallampati scale class II Neurological: alert and oriented Last oral intake: >/= 8 hours ASA classification: III Emergent: no Anesthetic plan: proceed Anesthesia type and monitoring: general LMA and standard monitoring Results Review: All pre-operative results and documents have been reviewed as part of the pre- operative evaluation. Informed Consent: The patient's anesthetic plan and its attendant risks and benefits were discussed with the patient/family/POA. Questions were solicited and answers provided to the satisfaction of the patient/family/POA.
[2024-12-17] MEDS: LACTATED RINGERS 1,000 ML 30 ML IV CONT ×2 (08:00→10:02)
[2024-12-17] MEDS: BUPivacaine HCL 0.25% PF 30 ML VIAL INFILTRATE (08:26)
[2024-12-17] MEDS: LIDO 1%/EPINEPHRINE 1:100,000 20 ML VIAL 30 ML INFILTRATE (08:27)
[2024-12-17] MEDS: TRANEXAMIC ACID 1,000MG/ISO100 1,000 MG/100 ML BAG 200 MG IVPB (08:40)
[2024-12-17] MEDS: ceFAZolin 2 GM/D5W 50 ML 2 GM/50 ML BAG IVPB (08:44)
[2024-12-17] MEDS: NACL 0.9% IRRIG POUR BOTTLE 900 ML, GENTAMICIN SULFATE INJ 160 MG, CLINDAMYCIN PHOS INJ... IRRIGATION (08:49)
[2024-12-17] MEDS: ONDANSETRON INJ 4 MG/2 ML VIAL IV PUSH (10:35)
[2024-12-17] MEDS: oxyCODONE HCL (*CRX) 5 MG TAB IR PO (11:17)
== END 2024-12-17 11:50 | disposition home or self-care (01) ==
PROVIDERS: PCP Family Medicine; Visit Provider Surgery Plastic and Reconstructive Surgery
PROC: (CPT 19325; principal; 2024-12-17 08:30)
DX: Z41.1 Encounter for cosmetic surgery (principal); N64.82 Hypoplasia of breast
CPT/HCPCS: 19325; A9270; J0690; J1100; J1580; J2003; J2004; J2250; J2405; J2704; J3010; J7120